=== PATIENT | female | born 1960 | race Caucasian/White ===

== ENCOUNTER → 2016-10-26 | Day surgery (SDC) | payer MEDICARE ==
[~2016-10-26] VITALS: Ht 167.6 cm; Wt 142.9 kg
[~2016-10-26] MED LIST: AMLODIPINE10 MG PO; CLINDAMYCIN HC300 MG PO; CLINDAMYCIN300 MG PO; EFFIENT10 M2 PO; FAMOTIDINE40 MG PO; HYDROCHLOROTHIA25 M1 PO; HYDROCODONE-APA1 TA2 PO; INSULIN RE100 UNITS/ SC; KEFLEX500 M1 PO; LASIX20 MG PO; LEVEMIR100 U/M2 SC; LEVEMIR100 U/ML SC; LISINOPRIL40 MG PO; METFORMIN1000 MG PO; NEURONTIN400 M1 PO; OXYBUTYNIN5 MG PO; PERCOCET 325 MG1 TA3 PO; PREDNISONE 20MG20 MG PO; TOPAMAX100 MG PO; TYLENOL ES500 MG PO; ZITHROMAX Z PA250 MG PO
[2016-10-26 06:07] LABS: HEMOGLOBIN 13.5 g/dL (12.2-16.2); LYMPH # 3.2 K/mm3 (0.7-4.5); LYMPH % 48.2 % (10-50.0)
--- NOTE | 2016-10-26 06:34 | Emergency Room Report ---
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 Y Clinical Suspician of Infection? N Mental Status: 1 - Regular (Normal Baseline) Sepsis Risk:Low Sepsis Risk Have you (or family members/close friends) recently traveled outside the [place]? N If Yes, where/when: Have you had exposure to infectious disease within the past month? N TB? Other? Specify: Source patient, RN notes reviewed, old records Exam Limitations no limitations Comment pt with acute onset of chest pain with pressure with no known ht disease Cardiac Chest Pain Chest pain indicative of cardiac No Timing/Duration this evening Severity moderate ALLERGIES Coded Allergies: Sulfa (Sulfonamide Antibiotics) (Intermediate, I-RASH 10/26/16) metoclopramide (From REGLAN) (Intermediate, ANXIETY 10/26/16) Penicillins (Mild, I-RASH 10/26/16) latex (Mild, I-RASH 10/26/16) tramadol (10/26/16) Home Medications Reported Medications Lisinopril (Lisinopril 40MG) 40 MG PO DAILY OXYBUTYNIN CHLORIDE (Oxybutynin 5MG Tab) 10 MG PO DAILY Famotidine 40 MG PO BID #60 History Medical History General CAD? No Angina: No [place]: No Hypertension? Yes Hyperlipidemia? No CHF? No DVT? No PE? No COPD? No Asthma? No Anemia? No GERD? No Gastric ulcers? No GI Bleed? No Hernia? No Thyroid Problems? No Hypothyroidism? No CVA? No Seizures? No Diabetes? Yes Insulin Dependent: No Insulin Pump: No Home FSBS? Yes Renal Insuffiency? No End Stage Renal Disease? No UTI? No Stones? No BPH? No GB Disease: Yes Nephritic Syndrome? No Asplenia? No Hepatitis? Yes Sickle Cell Disease? No Arthritis? No Migraines? No Cataracts? No Glaucoma? No MRSA? Yes HIV? No TB? No Anxiety? Yes Depression? No Cancer? No More? 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 Respiratory denies cough, denies shortness of breath, denies wheezing Cardiovascular see HPI, chest pain, denies palpitations, denies syncope Gastrointestinal denies vomiting Genitourinary denies: dysuria, frequency, hesitancy, hematuria. Musculoskeletal denies back pain, denies joint pain, denies joint swelling, denies neck pain Skin denies rash Psychiatric/Neurological denies headache, denies seizure Physical Exam Vital Signs Vital Signs Date Time Temp Pulse Resp B/P Pulse O2 O2 Flow FiO2 Ox Delivery Rate 10/26 0842 98.2 58 20 205/105 99 10/26 0821 57 20 160/112 99 10/26 0730 61 18 150/92 97 10/26 0702 98.4 69 18 161/92 94 10/26 0632 69 18 177/93 92 10/26 0631 18 10/26 0625 57 18 182/99 92 10/26 0543 98.4 76 18 160/120 96 - WBC >12,000 or <4,000 or 10% bands? 2 or more SIRS Criteria Met? B/P:161/92 MAP:133 Creatinine >2.0? UA output<0.5ml/kg/hr for 2 hrs? Platelet count >100,000? Lactate >2.0mmol/1? INR >1.2 or PTT > than 60 sec? Evidence of Organ Dysfunction? Provider documented clinical suspician of infection? N Sepsis Criteria Count: 1 Sepsis Risk: Low Sepsis Risk General Appearance no apparent distress Eye Exam - bilateral eye PERRL, bilateral eye EOMI Ear, Nose, Throat normal ENT inspection Neck non-tender Respiratory Status No: respiratory distress. Lung Sounds bilateral: lungs clear. 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 No Results/Orders Laboratory Tests 10/26/16 0550: Sodium 140, Potassium 3.7, Chloride 104, Carbon Dioxide 32, BUN 6 L, Creatinine 0.8, Estimated Creat Clear 181, Estimated GFR (MDRD) 75, Glucose 143 H, Calcium 8.9, Total Bilirubin 0.5, AST 18, ALT 20, Alkaline Phosphatase 96, Creatine Kinase 47, CK-MB (CK-2) Rel Index 1.1, CK and CKMB Interp < 0.5, Troponin I < 0.02, Total Protein 6.8, Albumin 3.3 L, Globulin 3.5 H, Albumin/Globulin Ratio 0.9 L, WBC 6.7, RBC 4.52, Hgb 13.5, Hct 40.9, MCV 90.4, RDW 14.4, Plt Count 226 , MPV 9.2, Gran % 43.9, Gran # 2.9, Lymphocytes % 48.2, Monocytes % 5.6, Eosinophils % 1.6, Basophils % 0.7, Lymphocytes # 3.2, Monocytes # 0.4, Eosinophils # 0.1, Basophils # 0.1, PUBS MCHC 33.1, MCH 29.9 Current Medication Orders Sig/Bethanie Start time Last Medication Dose Route Stop Time Status Admin Diphenhydramine HCl 50 MG ONCE ONE 10/26 0900 UNV IV 10/26 0901 Sodium Chloride 10 ML PRN PRN 10/26 0900 UNV IV Sodium Chloride 1,000 ML .Q25H 10/26 0900 UNV IV Amlodipine Besylate 10 MG ONCE ONE 10/26 0845 UNV PO 10/26 0846 Fentanyl Citrate 25 MCG PRN PRN 10/26 0845 UNV IV 10/26 2300 Fentanyl Citrate 50 MCG PRN PRN 10/26 0845 UNV IV 10/26 2300 Flumazenil 0.2 MG PRN PRN 10/26 0845 UNV IV 10/26 2300 Heparin Sodium/ 3,000 UNITS PRN PRN 10/26 0845 UNV Sodium Chloride IV 10/27 0845 Lidocaine HCl 20 ML ONCE ONE 10/26 0845 UNV IJ 10/26 0846 Midazolam HCl 1 MG PRN PRN 10/26 0845 UNV IV 10/26 2300 Midazolam HCl 1 MG PRN PRN 10/26 0845 UNV IV 10/26 2300 Naloxone HCl 0.4 MG [id number] PRN 10/26 0845 UNV IV 10/26 2300 Nitroglycerin 800 MCG PRN PRN 10/26 0845 UNV IV 10/27 0845 Verapamil HCl 5 MG PRN PRN 10/26 0845 UNV IV 10/27 0845 Naloxone HCl 0 .STK-MED ONE 10/26 0646 DC .ROUTE Nitroglycerin 0.4 MG ONCE ONE 10/26 0630 DC 10/26 SL 10/26 0631 0631 Nitroglycerin 0 .STK-MED ONE 10/26 0628 DC SL Aspirin 324 MG ONCE ONE 10/26 0600 DC 10/26 PO 10/26 0601 0602 Aspirin 0 .STK-MED ONE 10/26 06 DC .ROUTE Sodium Chloride 10 ML PRN PRN 10/26 0600 AC IV 10/27 0558 Orders Procedure Date/time Status URINE 10/26 0847 Active TROPONIN I 10/26 0752 Active CHEST-PORTABLE 10/26 0613 Active IV SALINE LOCK 10/26 0559 Active 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 ST/Twave chgs XRAY/CT/US XRAY/CT/US XRAY chest XR interpretation by reviewed by me Xray Results abnormal (cm) Departure Departure Time of Disposition 0851 Disposition Still a Patient Clinical Impression Primary Impression: Angina at rest Secondary Impressions: HTN (hypertension) Qualifiers: Hypertension type: essential hypertension Qualified Code: I10 - Essential (primary) hypertension Condition STABLE Referrals Attila Mendoza MD Additional Instructions will be seen by card and will go to [facility] ED Critical Care Critical Care No at [id number]
--- NOTE | 2016-10-26 06:34 | Emergency Room Report ---
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 Y Clinical Suspician of Infection? N Mental Status: 1 - Regular (Normal Baseline) Sepsis Risk:Low Sepsis Risk Have you (or family members/close friends) recently traveled outside the [place]? N If Yes, where/when: Have you had exposure to infectious disease within the past month? N TB? Other? Specify: Source patient, RN notes reviewed, old records Exam Limitations no limitations Comment pt with acute onset of chest pain with pressure with no known ht disease Cardiac Chest Pain Chest pain indicative of cardiac No Timing/Duration this evening Severity moderate ALLERGIES Coded Allergies: Sulfa (Sulfonamide Antibiotics) (Intermediate, I-RASH 10/26/16) metoclopramide (From REGLAN) (Intermediate, ANXIETY 10/26/16) Penicillins (Mild, I-RASH 10/26/16) latex (Mild, I-RASH 10/26/16) tramadol (10/26/16) Home Medications Reported Medications Lisinopril (Lisinopril 40MG) 40 MG PO DAILY OXYBUTYNIN CHLORIDE (Oxybutynin 5MG Tab) 10 MG PO DAILY Famotidine 40 MG PO BID #60 History Medical History General CAD? No Angina: No [place]: No Hypertension? Yes Hyperlipidemia? No CHF? No DVT? No PE? No COPD? No Asthma? No Anemia? No GERD? No Gastric ulcers? No GI Bleed? No Hernia? No Thyroid Problems? No Hypothyroidism? No CVA? No Seizures? No Diabetes? Yes Insulin Dependent: No Insulin Pump: No Home FSBS? Yes Renal Insuffiency? No End Stage Renal Disease? No UTI? No Stones? No BPH? No GB Disease: Yes Nephritic Syndrome? No Asplenia? No Hepatitis? Yes Sickle Cell Disease? No Arthritis? No Migraines? No Cataracts? No Glaucoma? No MRSA? Yes HIV? No TB? No Anxiety? Yes Depression? No Cancer? No More? 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 Respiratory denies cough, denies shortness of breath, denies wheezing Cardiovascular see HPI, chest pain, denies palpitations, denies syncope Gastrointestinal denies vomiting Genitourinary denies: dysuria, frequency, hesitancy, hematuria. Musculoskeletal denies back pain, denies joint pain, denies joint swelling, denies neck pain Skin denies rash Psychiatric/Neurological denies headache, denies seizure Physical Exam Vital Signs Vital Signs Date Time Temp Pulse Resp B/P Pulse O2 O2 Flow FiO2 Ox Delivery Rate 10/26 0842 98.2 58 20 205/105 99 10/26 0821 57 20 160/112 99 10/26 0730 61 18 150/92 97 10/26 0702 98.4 69 18 161/92 94 10/26 0632 69 18 177/93 92 10/26 0631 18 10/26 0625 57 18 182/99 92 10/26 0543 98.4 76 18 160/120 96 - WBC >12,000 or <4,000 or 10% bands? 2 or more SIRS Criteria Met? B/P:161/92 MAP:133 Creatinine >2.0? UA output<0.5ml/kg/hr for 2 hrs? Platelet count >100,000? Lactate >2.0mmol/1? INR >1.2 or PTT > than 60 sec? Evidence of Organ Dysfunction? Provider documented clinical suspician of infection? N Sepsis Criteria Count: 1 Sepsis Risk: Low Sepsis Risk General Appearance no apparent distress Eye Exam - bilateral eye PERRL, bilateral eye EOMI Ear, Nose, Throat normal ENT inspection Neck non-tender Respiratory Status No: respiratory distress. Lung Sounds bilateral: lungs clear. 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 No Results/Orders Laboratory Tests 10/26/16 0550: Sodium 140, Potassium 3.7, Chloride 104, Carbon Dioxide 32, BUN 6 L, Creatinine 0.8, Estimated Creat Clear 181, Estimated GFR (MDRD) 75, Glucose 143 H, Calcium 8.9, Total Bilirubin 0.5, AST 18, ALT 20, Alkaline Phosphatase 96, Creatine Kinase 47, CK-MB (CK-2) Rel Index 1.1, CK and CKMB Interp < 0.5, Troponin I < 0.02, Total Protein 6.8, Albumin 3.3 L, Globulin 3.5 H, Albumin/Globulin Ratio 0.9 L, WBC 6.7, RBC 4.52, Hgb 13.5, Hct 40.9, MCV 90.4, RDW 14.4, Plt Count 226 , MPV 9.2, Gran % 43.9, Gran # 2.9, Lymphocytes % 48.2, Monocytes % 5.6, Eosinophils % 1.6, Basophils % 0.7, Lymphocytes # 3.2, Monocytes # 0.4, Eosinophils # 0.1, Basophils # 0.1, PUBS MCHC 33.1, MCH 29.9 Current Medication Orders Sig/Bethanie Start time Last Medication Dose Route Stop Time Status Admin Diphenhydramine HCl 50 MG ONCE ONE 10/26 0900 UNV IV 10/26 0901 Sodium Chloride 10 ML PRN PRN 10/26 0900 UNV IV Sodium Chloride 1,000 ML .Q25H 10/26 0900 UNV IV Amlodipine Besylate 10 MG ONCE ONE 10/26 0845 UNV PO 10/26 0846 Fentanyl Citrate 25 MCG PRN PRN 10/26 0845 UNV IV 10/26 2300 Fentanyl Citrate 50 MCG PRN PRN 10/26 0845 UNV IV 10/26 2300 Flumazenil 0.2 MG PRN PRN 10/26 0845 UNV IV 10/26 2300 Heparin Sodium/ 3,000 UNITS PRN PRN 10/26 0845 UNV Sodium Chloride IV 10/27 0845 Lidocaine HCl 20 ML ONCE ONE 10/26 0845 UNV IJ 10/26 0846 Midazolam HCl 1 MG PRN PRN 10/26 0845 UNV IV 10/26 2300 Midazolam HCl 1 MG PRN PRN 10/26 0845 UNV IV 10/26 2300 Naloxone HCl 0.4 MG [id number] PRN 10/26 0845 UNV IV 10/26 2300 Nitroglycerin 800 MCG PRN PRN 10/26 0845 UNV IV 10/27 0845 Verapamil HCl 5 MG PRN PRN 10/26 0845 UNV IV 10/27 0845 Naloxone HCl 0 .STK-MED ONE 10/26 0646 DC .ROUTE Nitroglycerin 0.4 MG ONCE ONE 10/26 0630 DC 10/26 SL 10/26 0631 0631 Nitroglycerin 0 .STK-MED ONE 10/26 0628 DC SL Aspirin 324 MG ONCE ONE 10/26 0600 DC 10/26 PO 10/26 0601 0602 Aspirin 0 .STK-MED ONE 10/26 06 DC .ROUTE Sodium Chloride 10 ML PRN PRN 10/26 0600 AC IV 10/27 0558 Orders Procedure Date/time Status URINE 10/26 0847 Active TROPONIN I 10/26 0752 Active CHEST-PORTABLE 10/26 0613 Active IV SALINE LOCK 10/26 0559 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
[2016-10-26 06:37] LABS: BUN 6 mg/dL (7-18)
[2016-10-26 06:38] LABS: GFR (ESTIMATED) 75 ML/MIN (59-)
--- NOTE | 2016-10-26 08:56 | CONSULT NOTE ---
Standard Demographics Patient Demo Date of Consultation: 10/26/16 Referring Provider: Maycol Godwin MD Reason for Consultation: Angina PRIMARY DIAGNOSIS: chest pain Problem list Problem list: 1. Diabetes mellitus, previously insulin requiring, with initial treatment for diabetes starting at age 28. 2. Hypertension 3. Hyperlipidemia, intolerant to statin therapy. Only uses Fish oil. 4. Morbid obesity A. Status post gastric sleeve approximately 2014 with weight decreased from 450 to current weight of 315 per patient. 5. Strong family history of coronary artery disease in both mother and father in their early 50s. History of present illness: History of present illness: 56-year-old white female presented to the emergency department today for onset of chest discomfort, headache that began earlier this morning(about 4 AM). Patient relates a 2-3 week history of exertional shortness of breath and chest pain that resolves with rest. In the emergency department patient was given sublingual nitroglycerin with resolution of symptoms shortly thereafter. Initial cardiac enzymes normal. Electrocardiogram is sinus rhythm with possible previous septal infarct. Cardiology consulted for further evaluation. Past Medical History: General: Hypertension Yes CVA No Seizures No TB No COPD No Asthma No Diabetes Yes Insulin Dependent No Insulin Pump No Angina No NC No Hyperlipidemia No Urinary No Cancer No Ulcers No MRSA Yes GB Disease Yes Past Surgical HX: Previous Surgery?Y Back Orthopedic Appendix Gallbladd GASTRIC SLEEVE Allergies Coded Allergies: Sulfa (Sulfonamide Antibiotics) (Intermediate, I-RASH 10/26/16) metoclopramide (From REGLAN) (Intermediate, ANXIETY 10/26/16) Penicillins (Mild, I-RASH 10/26/16) latex (Mild, I-RASH 10/26/16) tramadol (10/26/16) Home medications: Reported Medications Lisinopril (Lisinopril 40MG) 40 MG PO DAILY OXYBUTYNIN CHLORIDE (Oxybutynin 5MG Tab) 10 MG PO DAILY Famotidine 40 MG PO BID #60 Current Medications: Current Medications Diphenhydramine HCl 50 MG ONCE ONE IV (UNV) Sodium Chloride 10 ML PRN PRN IV (UNV) Sodium Chloride 1,000 ML .Q25H IV (UNV) Amlodipine Besylate 10 MG ONCE ONE PO (UNV) Fentanyl Citrate 25 MCG PRN PRN IV (UNV) Fentanyl Citrate 50 MCG PRN PRN IV (UNV) Flumazenil 0.2 MG PRN PRN IV (UNV) Heparin Sodium/Sodium Chloride 3,000 UNITS PRN PRN IV (UNV) Lidocaine HCl 20 ML ONCE ONE IJ (UNV) Midazolam HCl 1 MG PRN PRN IV (UNV) Midazolam HCl 1 MG PRN PRN IV (UNV) Naloxone HCl 0.4 MG [id number] PRN IV (UNV) Nitroglycerin 800 MCG PRN PRN IV (UNV) Verapamil HCl 5 MG PRN PRN IV (UNV) Naloxone HCl 0 .STK-MED ONE .ROUTE (DC) Nitroglycerin 0.4 MG ONCE ONE SL (DC) Nitroglycerin 0 .STK-MED ONE SL (DC) Aspirin 324 MG ONCE ONE PO (DC) Aspirin 0 .STK-MED ONE .ROUTE (DC) Sodium Chloride 10 ML PRN PRN IV Immunization HX DT/Tetanus 1-4 Years Family history Family HX Family Hx Insignificant No Social Hx: Smoking HX Tobacco No Alcohol Alcohol: No Hx of Drug Use Drug Use? No Review of systems: Constitutional No: no symptoms reported. Respiratory see HPI, SOB with excertion. Cardiovascular see HPI, chest pain, palpitations Gastrointestinal/Abdominal abdominal pain Genitourinary No: no symptoms reported. Musculoskeletal No: no symptoms reported. Neurological Yes: headache. Exam: Admission Vital Signs: 1ST Vital Signs Result Date Time Pulse Ox 96 10/26 542 B/P 160/120 10/26 542 Temp 98.4 10/26 542 Pulse 76 10/26 05 Resp 18 10/26 542 Last Vital Signs: Vital Signs Result Date Time Pulse Ox 99 10/26 0842 B/P 205/105 10/26 841 Temp 98.2 10/26 08 Pulse 58 10/26 0842 Resp 20 10/26 08 Exam General appearance: alert, awake, no acute distress Neck: no carotid bruit, no JVD Cardiovascular: regular rate & rhythm, no murmur Respiratory: clear to auscultation, good air movement ABD: soft, no tenderness Extremities: moves all, no peripheral edema Neuro: alert, intact, oriented, speech clear Laboratory data: Laboratory Tests 10/26/16 0550: Sodium 140, Potassium 3.7, Chloride 104, Carbon Dioxide 32, BUN 6 L, Creatinine 0.8, Estimated Creat Clear 181, Estimated GFR (MDRD) 75, Glucose 143 H, Calcium 8.9, Total Bilirubin 0.5, AST 18, ALT 20, Alkaline Phosphatase 96, Creatine Kinase 47, CK-MB (CK-2) Rel Index 1.1, CK and CKMB Interp < 0.5, Troponin I < 0.02, Total Protein 6.8, Albumin 3.3 L, Globulin 3.5 H, Albumin/Globulin Ratio 0.9 L, WBC 6.7, RBC 4.52, Hgb 13.5, Hct 40.9, MCV 90.4, RDW 14.4, Plt Count 226 , MPV 9.2, Gran % 43.9, Gran # 2.9, Lymphocytes % 48.2, Monocytes % 5.6, Eosinophils % 1.6, Basophils % 0.7, Lymphocytes # 3.2, Monocytes # 0.4, Eosinophils # 0.1, Basophils # 0.1, PUBS MCHC 33.1, MCH 29.9 Plan: Assessment: 1. Unstable angina pectoris in a patient with diabetes treatment which has been treated since age 28. Patient has significant family history for early coronary artery disease, hypertension, untreated hyperlipidemia and recurrent chest pain. Discussed with Dr. Mendoza. 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 2. Hypertension, poorly controlled. Will add Norvasc 10 mg this a.m. due to bradycardic heart rate in the 50s. Patient is on lisinopril 40 mg daily. 3. Morbid obesity with history of gastric sleeve surgery approximately 2014 4. Hyperlipidemia, intolerant of statin therapy in the past. 5. Strong family history of coronary disease. Recommendations: Discussed with Dr. Mendoza. See above. at 0924
--- NOTE | 2016-10-26 10:07 | RADIOLOGY REPORT PS360 ---
CHEST-PORTABLE HISTORY: CHEST PAIN ORDERING PHYSICIAN: Martell Godwin MD PATIENT AGE: 56 years COMPARISON: None available FINDINGS: The cardiomediastinal silhouette and pulmonary vascularity are within normal limits. The lungs are clear without infiltrates, suspicious nodules, or pleural effusions. No acute bony abnormalities. IMPRESSION: Negative chest, no acute finding
--- NOTE | 2016-10-26 11:29 | RADIOLOGY REPORT PS360 ---
CARDIAC CATHETERIZATION DATE OF CATHETERIZATION:10/26/2016 10:59 AM PROCEDURES: 1. Left heart catheterization 2. Left ventriculogram 3. Selective coronary angiogram 4. FFR to the LAD 5. FFR to the ramus intermedius 6. Drug-eluting stent deployment to the ramus intermedius 7. Drug-eluting stent deployment to the mid LAD INDICATION FOR TEST: 1. Angina pectoris class IV 2. Coronary artery disease 3. Ischemic response to adenosine in both the LAD and ramus intermedius Informed consent was obtained prior to the procedure. COMPLICATIONS: None ESTIMATED BLOOD LOSS: Less than 10 ml. TECHNIQUE: One percent lidocaine was used to anesthetize the right anterior aspect of the right wrist. The right radial artery was accessed via the Seldinger technique and a 5 Sammarinese hydrophilic sheath was placed into the right radial artery. An intra-arterial cocktail of verapamil and nitroglycerin was administered. The Skye catheter was used to perform right coronary artery angiography as well as left heart catheterization and left ventriculogram. I could not get the Skye catheter to cannulate the left main artery due to the catheter being too large and remaining in the left coronary cusp. Because of this over the wire a TIG catheter was used to cannulate the left main artery. Angiography was performed. Angiographically indeterminate stenoses were identified in the ramus intermedius and the LAD. Because of this 15,000 units of heparin was administered intravenously and a 5 Sammarinese sheath was exchanged for a hydrophilic 6 Sammarinese sheath. 60 mg of Effient was administered by mouth prior to the interventional procedure. An Akari left 3.5 by catheter was placed in the ascending aorta and if okay no FFR wire was normalized. The guide catheter was then used intubate the left main artery and the wire was placed into the mid to distal LAD. The ACT was measured at 346 seconds prior to passage of the wire. Adenosine was infused in the FFR index dropped to 0.75. At this point the wire was pulled back and placed into the ramus intermedius and 3 minutes later adenosine was infused after the wire was placed distal to the angiographically indeterminate stenosis. The FFR index dropped to 0.79 also indicating an ischemic response in the large ramus. A 2.5 x 22 mm resolute stent was deployed at 14 deepthi reducing the angiographically indeterminate yet hemodynamically severe stenosis to 0%. Excellent angiographic results were obtained with JOE-3 flow down the vessel before and after the procedure. The wire was in placed into the LAD and a 2.25 x 12 mm resolute stent was deployed at 15 deepthi in the mid LAD reducing the hemodynamically severe stenosis to 0%. JOE III flow was present before and after the procedure down the LAD area Patient was complaining of pain in the arm with manipulation of the catheter therefore the guide catheter was pulled back into the brachiocephalic artery and then into the proximal subclavian artery. 2 aliquots of 800 mcg of intra-arterial nitroglycerin was administered via the end hole catheter. After blood pressure dropped the catheter was easily removed from the right arm and sheath was removed with excellent hemostasis being achieved with TR band. The closing ACT was 287 seconds. Patient was transferred to the postop holding area in stable condition ANGIOGRAPHIC RESULTS: 1. The left main artery normal 2. The left anterior descending artery has a mid vessel 50-70% stenosis which produced an FFR index of 0.75 3. The ramus intermedius is a large vessel and has a proximal to mid vessel 50% stenosis which produces an FFR index of 0.79 4. The circumflex artery normal 5. The right coronary artery is a codominant vessel and normal 6. The JOHNSON ventriculogram reveals hyperdynamic ejection fraction at 80% 7. The left ventricular end-diastolic pressure 20 mmHg IMPRESSION: 1. Severe 2 vessel coronary artery disease as described above 2. Angiographically indeterminate yet hemodynamically severe disease in the mid LAD requiring 1 drug-eluting stent placement reducing hemodynamically severe stenosis to 0% by angiography 3. Angiographically indeterminate yet hemodynamically severe disease in the proximal to mid large ramus intermedius requiring 1 drug-eluting stent placement reducing hemodynamically severe stenosis to 0% by angiography 4. Hyperdynamic ventricle at 80% consistent with hypertensive heart disease 5. Elevated LVEDP consistent with hypertensive heart disease PLAN: 1. Effient and aspirin 2. LDL less than 70 3. Patient requires carvedilol and or verapamil in order to decrease her hyperdynamic ventricle. She would also benefit from low dose diuretics. 4. Weight-loss advised along with risk factor modification
[2016-10-26 15:41] VITALS: BP 151/88
[2016-10-26 16:00] VITALS: BP 129/103
[2016-10-26 18:00] VITALS: BP 179/71
[2016-10-26 19:56] VITALS: BP 124/88
[2016-10-26 20:00] VITALS: BP 141/74
[2016-10-27] VITALS: BP 131/76
[2016-10-27 02:00] VITALS: BP 134/73
[2016-10-27 04:00] VITALS: BP 130/73
[2016-10-27 07:00] VITALS: BP 156/90
[2016-10-27 07:36] VITALS: BP 156/90
[2016-10-27 08:00] VITALS: BP 144/86
== END ==
LOC: ER 05:43 → SDC 08:57
PROVIDERS: Emergency Medicine; Internal Medicine
PROC: B2111ZZ Fluoroscopy of Multiple Coronary Arteries using Low Osmolar Contrast (ICD-10-PCS; 2016-10-26)
PROC: B2151ZZ Fluoroscopy of Left Heart using Low Osmolar Contrast (ICD-10-PCS; 2016-10-26)
PROC: 4A033BC Measurement of Arterial Pressure, Coronary, Percutaneous Approach (ICD-10-PCS; 2016-10-26)
PROC: 027135Z Dilation of Coronary Artery, Two Arteries with Two Drug-eluting Intraluminal Devices, Percutaneous Approach (ICD-10-PCS; 2016-10-26)
PROC: 4A023N7 Measurement of Cardiac Sampling and Pressure, Left Heart, Percutaneous Approach (ICD-10-PCS; principal; 2016-10-26 09:15)
DX: I25.119 Atherosclerotic heart disease of native coronary artery with unspecified angina pectoris (principal); I11.9 Hypertensive heart disease without heart failure
CPT/HCPCS: C1725; C1760; C1769; C1876; C1887; C1894; J0153; J1644; Q9967

== ENCOUNTER 2017-07-15 19:22 | Observation (INO) | payer MEDICARE ==
[~2017-07-15] VITALS: Ht 167.6 cm; Wt 133.9 kg
[2017-07-15 19:22] VITALS: BP 120/83
[2017-07-15] MEDS ORDERED: METOPROLOL SUCC25 M2 PO (19:28)
[2017-07-15] MEDS ORDERED: METFORMIN 500M500 M1 PO (19:29)
[2017-07-15] MEDS ORDERED: ALLOPURINOL100 MG PO (19:29)
[2017-07-15] MEDS ORDERED: SERTRALINE 50MG50 MG PO (19:30)
--- NOTE | 2017-07-15 20:02 | Emergency Room Report ---
History of Present Illness Time Seen by MD Mercado Presenting Problem in Triage Pt arrived:Wheelchair Presenting Problem:C/O LEFT SIDED CHEST PAIN ALL DAY. WORSE WHEN LYING DOWN AND BETTER WHEN SITTING UP. C/ NAUSEA. 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 N Clinical Suspician of Infection? N Mental Status: 1 - Regular (Normal Baseline) Sepsis Risk:Low Sepsis Risk Have you (or family members/close friends) recently traveled outside the [place]? N If Yes, where/when: Have you had exposure to infectious disease within the past month? N TB? Other? Specify: Source patient, RN notes reviewed, old records Exam Limitations no limitations Comment pt with 1 day of lt sided chest pain at first described as costal and has hx of card disease with prev stents - pt has sig risk factors - and on re exam she has intetmittent chest pain similiar to prev chest pain Cardiac Chest Pain Chest pain indicative of cardiac Yes Timing/Duration 4-6 hours, intermittent Severity/Quality moderate, dull Location rib area -costal/lat chest Chest Pain Radiation no radiation Activities at Onset light activity Nitro Today/Relief no nitro taken today Aspirin Treatment Today 325 mg x 1, provided by ED Beta chris treatment today Beta chris taken, provided at home, no relief Cardiac risk factors + cardiovascular disease, Diabetes, + family history, obesity Prior Workup/Intervention stent(s) Timing/Duration this evening Severity moderate ALLERGIES Coded Allergies: Tazupwb-Gxr-Jrj Reductase Inhibitor (Intermediate, 11/16/16) Sulfa (Sulfonamide Antibiotics) (Intermediate, I-RASH 11/16/16) metoclopramide (From REGLAN) (Intermediate, ANXIETY 11/16/16) Penicillins (Mild, I-RASH 11/16/16) latex (Mild, I-RASH 11/16/16) tramadol (11/16/16) Home Medications Reported Medications Famotidine 40 MG PO BID #60 Metoprolol Succinate 25 MG PO DAILY #90 Allopurinol 100 MG PO BID #60 Metformin HCl (Metformin) 500 MG PO BID #180 Sertraline Hcl (Sertraline 50MG) 25 MG PO DAILY #90 Lisinopril (Lisinopril 40MG) 40 MG PO BID OXYBUTYNIN CHLORIDE (Oxybutynin 5MG Tab) 5 MG PO BID Acetaminophen (Tylenol XS 500MG) 500 MG PO Q6HP PRN FEVER Amlodipine Besylate (Amlodipine) 10 MG PO BID Prasugrel HCl (Effient) 10 MG PO DAILY History Medical History General CAD? Yes Angina: No [place]: No Hypertension? Yes Hyperlipidemia? Yes CHF? No DVT? No PE? No COPD? No Asthma? Yes Anemia? No GERD? Yes Gastric ulcers? Yes GI Bleed? Yes Hernia? Yes Thyroid Problems? No Hypothyroidism? No CVA? No Seizures? No Diabetes? Yes Insulin Dependent: No Insulin Pump: No Home FSBS? Yes Renal Insuffiency? No End Stage Renal Disease? No UTI? No Stones? No BPH? No GB Disease: Yes Nephritic Syndrome? No Asplenia? No Hepatitis? Yes Sickle Cell Disease? No Arthritis? Yes Migraines? No Cataracts? No Glaucoma? No MRSA? Yes HIV? No TB? No Anxiety? Yes Depression? Yes Cancer? No More? 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 Respiratory denies cough, denies shortness of breath, denies wheezing Cardiovascular chest pain, denies palpitations, denies syncope Gastrointestinal denies abdominal pain, denies diarrhea, denies vomiting Genitourinary denies: dysuria, frequency, hesitancy, hematuria. Musculoskeletal denies back pain, denies joint pain, denies joint swelling, denies neck pain Skin denies rash Psychiatric/Neurological denies headache, denies seizure Physical Exam Vital Signs Vital Signs Date Time Temp Pulse Resp B/P Pulse O2 O2 Flow FiO2 Ox Delivery Rate 07/15 1955 60 24 127/85 98 07/15 1922 99.1 54 24 120/83 98 - WBC >12,000 or <4,000 or 10% bands? 2 or more SIRS Criteria Met? B/P:127/85 MAP:95 Creatinine >2.0? UA output<0.5ml/kg/hr for 2 hrs? Platelet count >100,000? Lactate >2.0mmol/1? INR >1.2 or PTT > than 60 sec? Evidence of Organ Dysfunction? Provider documented clinical suspician of infection? N Sepsis Criteria Count: 1 Sepsis Risk: Low Sepsis Risk General Appearance no apparent distress Eye Exam - bilateral eye PERRL, bilateral eye EOMI Ear, Nose, Throat normal ENT inspection Neck supple Respiratory Status No: respiratory distress. Lung Sounds bilateral: lungs clear. 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 No Results/Orders Laboratory Tests 07/15/17 1933: Sodium 138, Potassium 4.4, Chloride 102, Carbon Dioxide 29, BUN 22 H, Creatinine 1.2 H, Estimated Creat Clear 114, Estimated GFR (MDRD) 47 L, Glucose 162 H, Calcium 9.7, Total Bilirubin 0.3, AST 16, ALT 25, Alkaline Phosphatase 111, Creatine Kinase 35, CK-MB (CK-2) Rel Index 1.4, CK and CKMB Interp < 0.5, Troponin I < 0.02, Total Protein 7.9, Albumin 3.9, Globulin 4.0 H , Albumin/Globulin Ratio 1.0 L, WBC 10.6, RBC 4.70, Hgb 13.5, Hct 42.4, MCV 90.2, RDW 12.9, Plt Count 292, MPV 7.9, Gran % 51.8, Gran # 5.5, Lymphocytes % 42.1, Monocytes % 4.4, Eosinophils % 1.1, Basophils % 0.5, Lymphocytes # 4.5, Monocytes # 0.5, Eosinophils # 0.1, Basophils # 0.1, PUBS MCHC 32.0, MCH 28.8 Current Medication Orders Sig/Bethanie Start time Last Medication Dose Route Stop Time Status Admin Nitroglycerin 1 IN ONCE ONE 07/15 2115 DC TP 07/15 2116 Sodium Chloride 10 ML PRN PRN 07/15 1945 AC IV 07/16 1933 Orders Procedure Date/time Status Decision to admit 07/15 2119 Active ELECTROCARDIOGRAM REQUEST 07/15 1933 Active CHEST(2 VIEWS-NOT PORTABLE) 07/15 1933 Active IV SALINE LOCK 07/15 1933 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 ST/Twave chgs XRAY/CT/US XRAY/CT/US XRAY chest XR interpretation by reviewed by me Xray Results normal/NAD JOE Score for N-Stemi/Angina JOE N-STEMI SCORE JOE N-STEMI SCORE Response Value Age of patient Less than 65 yrs 0 Number of risk factors for CAD Presence of 3 or more 1 Prior coronary artery stenosis (seen in angiography) 50% or more 1 ST-Segment deviation on ECG (>1 min) Absent 0 Prior aspirin intake ASA intake in last 7 days 1 Severe anginal chest pain 2 or more episodes/24hr 1 Elevated cardiac markers(CK-MB or troponin) Absent 0 Total 4 Departure Departure Time of Disposition 2117 Disposition Still a Patient Clinical Impression Primary Impression: Chest pain Qualifiers: Chest pain type: precordial pain Qualified Code: R07.2 - Precordial pain Secondary Impressions: Renal insufficiency Condition STABLE Referrals YAO BROWN (PCP/Family) discussed with dr morrow ED Critical Care Critical Care No at 2129
--- NOTE | 2017-07-15 20:02 | Emergency Room Report ---
History of Present Illness Time Seen by MD Mercado Presenting Problem in Triage Pt arrived:Wheelchair Presenting Problem:C/O LEFT SIDED CHEST PAIN ALL DAY. WORSE WHEN LYING DOWN AND BETTER WHEN SITTING UP. C/ NAUSEA. 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 N Clinical Suspician of Infection? N Mental Status: 1 - Regular (Normal Baseline) Sepsis Risk:Low Sepsis Risk Have you (or family members/close friends) recently traveled outside the [place]? N If Yes, where/when: Have you had exposure to infectious disease within the past month? N TB? Other? Specify: Source patient, RN notes reviewed, old records Exam Limitations no limitations Comment pt with 1 day of lt sided chest pain at first described as costal and has hx of card disease with prev stents - pt has sig risk factors - and on re exam she has intetmittent chest pain similiar to prev chest pain Cardiac Chest Pain Chest pain indicative of cardiac Yes Timing/Duration 4-6 hours, intermittent Severity/Quality moderate, dull Location rib area -costal/lat chest Chest Pain Radiation no radiation Activities at Onset light activity Nitro Today/Relief no nitro taken today Aspirin Treatment Today 325 mg x 1, provided by ED Beta chris treatment today Beta chris taken, provided at home, no relief Cardiac risk factors + cardiovascular disease, Diabetes, + family history, obesity Prior Workup/Intervention stent(s) Timing/Duration this evening Severity moderate ALLERGIES Coded Allergies: Gvijwef-Iai-Kuj Reductase Inhibitor (Intermediate, 11/16/16) Sulfa (Sulfonamide Antibiotics) (Intermediate, I-RASH 11/16/16) metoclopramide (From REGLAN) (Intermediate, ANXIETY 11/16/16) Penicillins (Mild, I-RASH 11/16/16) latex (Mild, I-RASH 11/16/16) tramadol (11/16/16) Home Medications Reported Medications Famotidine 40 MG PO BID #60 Metoprolol Succinate 25 MG PO DAILY #90 Allopurinol 100 MG PO BID #60 Metformin HCl (Metformin) 500 MG PO BID #180 Sertraline Hcl (Sertraline 50MG) 25 MG PO DAILY #90 Lisinopril (Lisinopril 40MG) 40 MG PO BID OXYBUTYNIN CHLORIDE (Oxybutynin 5MG Tab) 5 MG PO BID Acetaminophen (Tylenol XS 500MG) 500 MG PO Q6HP PRN FEVER Amlodipine Besylate (Amlodipine) 10 MG PO BID Prasugrel HCl (Effient) 10 MG PO DAILY History Medical History General CAD? Yes Angina: No [place]: No Hypertension? Yes Hyperlipidemia? Yes CHF? No DVT? No PE? No COPD? No Asthma? Yes Anemia? No GERD? Yes Gastric ulcers? Yes GI Bleed? Yes Hernia? Yes Thyroid Problems? No Hypothyroidism? No CVA? No Seizures? No Diabetes? Yes Insulin Dependent: No Insulin Pump: No Home FSBS? Yes Renal Insuffiency? No End Stage Renal Disease? No UTI? No Stones? No BPH? No GB Disease: Yes Nephritic Syndrome? No Asplenia? No Hepatitis? Yes Sickle Cell Disease? No Arthritis? Yes Migraines? No Cataracts? No Glaucoma? No MRSA? Yes HIV? No TB? No Anxiety? Yes Depression? Yes Cancer? No More? 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 Respiratory denies cough, denies shortness of breath, denies wheezing Cardiovascular chest pain, denies palpitations, denies syncope Gastrointestinal denies abdominal pain, denies diarrhea, denies vomiting Genitourinary denies: dysuria, frequency, hesitancy, hematuria. Musculoskeletal denies back pain, denies joint pain, denies joint swelling, denies neck pain Skin denies rash Psychiatric/Neurological denies headache, denies seizure Physical Exam Vital Signs Vital Signs Date Time Temp Pulse Resp B/P Pulse O2 O2 Flow FiO2 Ox Delivery Rate 07/15 1955 60 24 127/85 98 07/15 1922 99.1 54 24 120/83 98 - WBC >12,000 or <4,000 or 10% bands? 2 or more SIRS Criteria Met? B/P:127/85 MAP:95 Creatinine >2.0? UA output<0.5ml/kg/hr for 2 hrs? Platelet count >100,000? Lactate >2.0mmol/1? INR >1.2 or PTT > than 60 sec? Evidence of Organ Dysfunction? Provider documented clinical suspician of infection? N Sepsis Criteria Count: 1 Sepsis Risk: Low Sepsis Risk General Appearance no apparent distress Eye Exam - bilateral eye PERRL, bilateral eye EOMI Ear, Nose, Throat normal ENT inspection Neck supple Respiratory Status No: respiratory distress. Lung Sounds bilateral: lungs clear. 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 No Results/Orders Laboratory Tests 07/15/17 1933: Sodium 138, Potassium 4.4, Chloride 102, Carbon Dioxide 29, BUN 22 H, Creatinine 1.2 H, Estimated Creat Clear 114, Estimated GFR (MDRD) 47 L, Glucose 162 H, Calcium 9.7, Total Bilirubin 0.3, AST 16, ALT 25, Alkaline Phosphatase 111, Creatine Kinase 35, CK-MB (CK-2) Rel Index 1.4, CK and CKMB Interp < 0.5, Troponin I < 0.02, Total Protein 7.9, Albumin 3.9, Globulin 4.0 H , Albumin/Globulin Ratio 1.0 L, WBC 10.6, RBC 4.70, Hgb 13.5, Hct 42.4, MCV 90.2, RDW 12.9, Plt Count 292, MPV 7.9, Gran % 51.8, Gran # 5.5, Lymphocytes % 42.1, Monocytes % 4.4, Eosinophils % 1.1, Basophils % 0.5, Lymphocytes # 4.5, Monocytes # 0.5, Eosinophils # 0.1, Basophils # 0.1, PUBS MCHC 32.0, MCH 28.8 Current Medication Orders Sig/Bethanie Start time Last Medication Dose Route Stop Time Status Admin Nitroglycerin 1 IN ONCE ONE 07/15 2115 DC TP 07/15 2116 Sodium Chloride 10 ML PRN PRN 07/15 1945 AC IV 07/16 1933 Orders Procedure Date/time Status Decision to admit 07/15 2119 Active ELECTROCARDIOGRAM REQUEST 07/15 1933 Active CHEST(2 VIEWS-NOT PORTABLE) 07/15 1933 Active IV SALINE LOCK 07/15 1933 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 ST/Twave chgs XRAY/CT/US XRAY/CT/US XRAY chest XR interpretation by reviewed by me Xray Results normal/NAD JOE Score for N-Stemi/Angina JOE N-STEMI SCORE JOE N-STEMI SCORE Response Value Age of patient Less than 65 yrs 0 Number of risk factors for CAD Presence of 3 or more 1 Prior coronary artery stenosis (seen in angiography) 50% or more 1 ST-Segment deviation on ECG (>1 min) Absent 0 Prior aspirin intake ASA intake in last 7 days 1 Severe anginal chest pain 2 or more episodes/24hr 1 Elevated cardiac markers(CK-MB or troponin) Absent 0 Total 4 Departure Departure Time of Disposition 2117 Disposition Still a Patient Clinical Impression Primary Impression: Chest pain Qualifiers: Chest pain type: precordial pain Qualified Code: R07.2 - Precordial pain Secondary Impressions: Renal insufficiency Condition STABLE Referrals YAO BROWN (PCP/Family) discussed with dr morrow ED Critical Care Critical Care No at 2129
[2017-07-15 20:12] LABS: HEMOGLOBIN 13.5 g/dL (12.2-16.2); LYMPH # 4.5 K/mm3 (0.7-4.5); LYMPH % 42.1 % (10-50.0)
[2017-07-15 20:38] LABS: BUN 22 mg/dL (7-18)
[2017-07-15 20:39] LABS: GFR (ESTIMATED) 47 ML/MIN (59-)
[2017-07-15 22:30] VITALS: BP 136/68
[2017-07-15 22:39] VITALS: BP 136/68
[2017-07-16] VITALS (7 sets, daily range): BP systolic 93–120; BP diastolic 48–55
--- OUTSIDE RECORDS SUMMARY | 2017-07-16 05:39 | External Medical Summary Rpt | CCD ---
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 PHYS T VISIT [facility] HIGH/URGE NT SEVERITY EMERGENCY 11333 EMERGENCY RICHARDSO 1 1 CARE N THO DEPARTMEN PHYS T VISIT [facility] HIGH/URGE NT SEVERITY
--- OUTSIDE RECORDS SUMMARY | 2017-07-16 05:39 | External Medical Summary Rpt | CCD ---
Author Author , LYNDA Organization LYNDA Address Unknown Phone [email or web address] Care Team Providers Care Robotic Maintenance Technician Name Role Phone MADYSON NAHID, MADYSON Unavailable Unavailable NAHID [facility] Unavailable [facility]available [facility] BROWN JEAN, BROWN Unavailable Unavailable JEAN [facility], Unavailable Unavailable [facility], Unavailable Unavailable [facility] RAFIQ CAR, RAFIQ CAR Unavailable Unavailable [place] [facility] MAYORGA RIM, MAYORGA RIM Unavailable Unavailable [facility], Unavailable Unavailable [facility] Unavailable Unavailable [facility], [facility], Unavailable Unavailable [facility] STEFFANIE TORonny, VALIENTE Unavailable Unavailable TOD MAYNOR RHO, MAYNOR Unavailable Unavailable RHO LUCINDA HANKINS Unavailable Unavailable [facility] Unavailable Un[facility], [facility] HERFEL JARAD, HERFEL Unavailable Unavailable JARAD [facility] Unavailable Unavailable PRACTITIONER [facility], [facility] Unavailable Unavailable [facility], [facility] LOVE TACO, LOVE [...] [facility] Unavailable Unavailable [facility], [facility] CARMEN MAURY, Unavailable Unavailable CARMEN MAURY [facility] Unavailable Unavailable [facility], [facility] Unavailable [facility]available [facility], [facility] Unavailable Unavailable PHYSICIANS, [facility] Unavailable Unavailable SELINA, [facility] SELINA [facility], [facility] Unavailable Unavailable MEDICAL [facility], [facility] Unavailable Unavailable [facility] Unavailable [place] [facility] OVIDIO LUND, OVIDIO LUND Unavailable Unavailable [...] L SUBSTANCE ALLERGY STATUS G4733 OBSTRUCTIVE 03-01-2016 [facility] ADULT P[facility]IATRIC [id number] MIGRAINE 02-24-2016 [facility] W/AURA NOT NEUROLOGY INTRACT W/O STAT MIGRAINOSUS M797 FIBROMYALGI 02-24-2016 [facility] A NEUROLOGY D34 BENIGN 12-08-2015 [facility] NEOPLASM OF [facility] THYROID HOSP GLAND E119 TYPE 2 12-08-2015 [facility] DIABETES [facility] MELLITUS HOSP WITHOUT COMPLICATIO NS I10 ESSENTIAL 12-08-2015 [facility] PRIMARY [facility] HYPERTENSIO HOSP N M542 CERVICALGIA 10-30-2015 [facility] HOSPI M546 PAIN IN 10-29-2015 [place] [facility] SPINE C ZACKE M6240 CONTRACTURE 10-29-2015 [place] OF MUSCLE [facility] UNSPECIFIED C CENTE SITE H6122 IMPACTED 10-13-2015 [facility] LEFT EAR HOSPI R42 DIZZINESS 10-13-2015 [facility] GIDDINESS HOSPI R0602 SHORTNESS 10-11-2015 [facility] BREATH [facility]TIY HOSPITA R0789 OTHER CHEST 10-11-2015 [facility] PAIN [facility] H[facility]PITA R110 NAUSEA 10-11-2015 [facility] R51 HEADACHE 10-11-2015 [facility] Z8614 PERSONAL HX 10-11-2015 [facility] METHICILLIN HOSPITA RSIST STAPH INFECTION Z9884 BARIATRIC 10-11-2015 [facility] SURGERY COMMUNTIY STATUS HOSPITA M109 GOUT 09-11-2015 [place] UNSPECIFIED FOOT & ANKLE CE M1990 UNSPECIFIED 09-11-2015 [place] FOOT & OSTEOARTHRI ANKLE CE TIS UNSPECIFIED SITE V25027 SPONTANEOUS 09-11-2015 [place] RUPTURE FOOT & FLEXOR ANKLE CE TENDONS UNS LOWER LEG M7660 ACHILLES 09-11-2015 [place] TENDINITIS FOOT & UNSPECIFIED ANKLE CE LEG A630 ANOGENITAL 09-02-2015 [facility] [id number] UNSPECIFIED 08-26-2015 [facility] INJURY COMMUNTIY LEFT ANKLE HOSPITA INITIAL ENCOUNTER Z23 ENCOUNTER 08-18-2015 [facility] IMMUNIZATIO SELINA N N843 POLYP OF 08-14-2015 [facility] P20234 PAIN IN 08-07-2015 [facility] [place] LEFT ANKLE RADIOLOGY W65851 PAIN IN 08-07-2015 [facility] LEFT LEG N EMERGENCY PHYS V79916 PAIN IN 08-07-2015 [facility] [place] LEFT FOOT [facility] Z37681 OTHER LONG 07-28-2015 [facility] CURRENT [facility]OUNDATION DRUG THERAPY E6601 MORBID 07-22-2015 SE[facility] OBESITY DUE PHYSICIANS TO EXCESS CALORIES Z6843 BODY MASS 07-22-2015 INDEX BMI MELONIE 50-59.9 PHYSICIANS ADULT E109 TYPE 1 07-15-2015 . DIABETES MELONIE MELLITUS SELINA WITHOUT COMPLICATIO NS L500 ALLERGIC 07-15-2015 . URTICARIA MELONIE MARKS C21484 ENCOUNTER 07-15-2015 . FOR OTHER MELONIE PREPROCEDUR SELINA AL EXAMINATION 45666 MIGRAINE 06-26-2015 [facility] W/AURA W/O NEUROLOGY INTRACT W/O STATUS MIGRNOSUS 7291 UNSPECIFIED 06-26-2015 [facility] MYALGIA NEUROLOGY AND MYOSITIS 98735 DIAB W/O 06-25-2015 [facility] COMP TYPE CONGREGATIONAL II/UNS NOT HOSP STATED UNCNTRL 6825 CELLULITIS 06-02-2015 [facility] NURSE AND ABSCESS PRACTITIONE OF BUTTOCK R GR 2189 LEIOMYOMA 05-25-2015 [facility]ICAL OF UTERUS, SERV UNSPECIFIED FOUNDATION 59020 MORBID 05-25-2015 [facility] OBESITY COMMUNTIY HOSPITA 4019 UNSPECIFIED 05-25-2015 [facility] ESSENTIAL COMMUNTIY HYPERTENSIO HOSPITA N 99447 ASTHMA, 05-25-2015 [facility] UNSPECIFIED COMMUNTIY , HOSPITA UNSPECIFIED STATUS 35262 ENDOMETRIAL 05-25-2015 [facility] HYPERPLASIA FOUNDATION UNSPECIFIED 6253 DYSMENORRHE 05-25-2015 [facility] 6262 EXCESSIVE 05-25-2015 [facility] FREQUENT SERV FOUNDATION MENSTRUATIO N 6271 POSTMENOPAU 05-25-2015 [facility] CRISTIN COMMUNTIY BLEEDING HOSPITA V8544 BODY MASS 05-25-2015 [facility] INDEX COMMUNTIY 60.0-69.9 HOSPITA ADULT V7283 OTHER 05-19-2015 [facility] SPECIFIED COMMUNTIY PRE-OPERATI HOSPITA VE EXAMINATION 71212 FEVER 05-18-2015 [facility] UNSPECIFIED N EMERGENCY SERV 3393 DRUG 03-20-2015 [facility] INDUCED NEUROLOGY HEADACHE NOT ELSEWHERE CLASSIFIED 0794 HUMAN 03-17-2015 [facility] VIRUS IN CCE & UNS SITE 4660 ACUTE 09-04-2012 [facility] [place] 6828 CELLULITIS 07-15-2012 EMERGENCY AND ABSCESS CARE PHYS OF OTHER [facility]THER[facility] SPECIFIED SITE 6823 CELLULITIS 05-22-2012 EMERGENCY AND ABSCESS CARE PHYS OF UPPER NORTHERN ARM AND FOREARM 6826 CELLULITIS 05-02-2012 ST AND ABSCESS MELONIE OF LEG FT [place] EXCEPT FOOT 04324 UNSPECIFIED 05-02-2012 ST SLEEP MELONIE APNEA FT [...] OF VULVA MELONIE AND VAGINA FT [place] 40092 UNSPECIFIED 04-16-2012 ST VAGINITIS MELONIE AND FT [place] VULVOVAGINI TIS 95569 UNSPECIFIED 03-23-2012 ST MELONIE PYELONEPHRI FT [place] TIS 34706 ABDOMINAL 03-23-2012 ST PAIN RIGHT MELONIE UPPER FT [place] QUADRANT V5867 LONG-TERM 03-23-2012 ST USE OF MELONIE INSULIN FT [place] 6869 UNSPEC 01-24-2012 EMERGENCY LOCAL CARE PHYS INFECTION [facility] SKIN&SUBCUT ANEOUS TISSUE 8409 SPRAIN&STRA 12-28-2011 ST IN UNSPEC MELONIE SITE FT [place] SHOULDER&UP PER ARM 7823 EDEMA 11-08-2011 ST MELONIE MEDICALCENT ER V148 PERSONAL 11-08-2011 ST HISTORY MELONIE ALLERGY OT MEDICALCENT SPEC ER MEDICINAL AGTS V1507 PERSONAL 11-08-2011 ST HISTORY [place] [address] ABDOMINAL 09-16-2011 ST TENDERNESS MELONIE RIGHT UPPER FT [place] QUADRANT 54249 ABDOMINAL 09-16-2011 ST TENDERNESS MELONIE RIGHT LOWER FT [place] QUADRANT 9150 ABRASION/FR 09-16-2011 ST ICTION BURN MELONIE FINGER W/O FT [place] MENTION INF 9222 CONTUSION 09-16-2011 ST OF MELONIE ABDOMINAL FT [place] WALL 23596 CONTUSION 09-16-2011 ST OF HAND MELONIE FT [place] 37356 UNSPECIFIED 04-27-2011 EMERGENCY SITE OF CARE PHYS ANKLE [facility] SPRAIN AND STRAIN 11768 CONTUSION 04-27-2011 EMERGENCY OF ANKLE CARE PHYS [facility]THER[facility] V1588 PERSONAL 04-27-2011 EMERGENCY HISTORY OF CARE PHYS FALL [facility] 96514 ABDOMINAL 04-11-2011 EMERGENCY PAIN, CARE PHYS UNSPECIFIED [...] MEDICAL MEDICAL POSITIVE AIRWAY PRESSURE DEVICE LIPID 62744 [facility] PANEL 6 [facility]OSP COMPREHEN 39140 [facility] SIVE 6 [facility] METABOLIC HOSP HOSP PANEL URNLS DIP 36271 [facility] 6 [facility] STICK/TAB HOSP HOSP LET REAGENT AUTO MICROSCOP Y HEMOGLOBI 47760 [facility] N 6 [facility] CON[facility]ATIONAL GLYCOSYLA HOSP HOSP DONOVAN A1C COLLECTIO 88903 [facility] N VENOUS 6 [facility] CON[facility]ATIONAL BLOOD HOSP HOSP VENIPUNCT URE TUBING A7037 [facility] USED WITH 6 MEDICAL MEDICAL POSITIVE AIRWAY PRESSURE DEVICE RADEX 57172 [facility] SPINE 6 N N CERVICAL COMMUNTIY COMMUNTIY 4 OR 5 HOSPITA HOSPITA VIEWS CHIROPRAC 90739 MANUEL FRANCIS TIC 6 GAR MANIPULAT CHIROPRAC [place] TIC CENTE SPINAL 1-2 REGIONS MANUAL 87771 MANUEL JACKSON THERAPY 6 TQS 1/> CHIROPRAC CH[facility]OP[facility]AC REGIONS TIC CENTE TIC CENTE EACH 15 MINUTES RADEX 88001 MANUEL FRANCIS SPINE 6 GAR LUMBOSACR CHIROPRAC AL 2/3 TIC CENTE VIEWS RADEX 03199 MANUEL JACKSON SPINE 6 CERVICAL CHIROPRAC CHIROPRAC 2 OR [address] [place] [address] [facility] MADYS[facility] HEAD/BRAI 6 RADIOLOGY NAHID N W/O CONTRAST MATERIAL RADIOLOGI 02237 [facility] [place] MAYNOR C 6 RADIOLOGY RHO EXAMINATI ON CHEST SINGLE VIEW FRONTAL THER 28356 [facility] PROPH/DX 6 N N NJX IV COMMUNTIY COMMUNTIY PUSH HOSPITA HOSPITA SINGLE/1S T SBST/DRUG COLLECTIO 90546 [facility] N VENOUS 6 N N BLOOD COMMUNTIY COMMUNTIY VENIPUN[place] [address] [facility] TROPONIN 6 N N QUANTITAT COMMUNTIY COMMUNTIY KRISTIE HOSPITA HOSPITA BLOOD 74041 [facility] COUNT 6 N N COMPLETE COMMUNTIY COMMUNTIY AUTO&AUTO HOSPITA HOSPITA DIFRNTL WBC ECG 40119 [facility] ROUTINE 6 N N ECG COMMUNTIY COMMUNTIY W/LEAST HOSPITA HOSPITA 12 LDS TRCG ONLY W/O I&R COMPREHEN 59388 [facility] SIVE 6 N N METABOLIC COMMUNTIY COMMUNTIY PANEL HOSPITA HOSPITA INJECTION J2405 [facility] 6 N N ONDANSETR COMMUNTIY COMMUNTIY ON HCL HOSPITA HOSPITA PER 1 MG NONCOVERE A9270 [facility] D ITEM OR 6 N N SERVICE [...] MEDICAL W/POSITIV E AIRWAY PRESSURE DEVICE RADEX 69102 [facility] ANKLE 5 N N COMPLETE COMMUNTIY COMMUNTIY MINIMUM 3 HOSPITA HOSPITA [facility] [address] NIRUJOGI DISCHARGE 5 MELONIE [facility] MANAGEMEN PHYSICIAN T 30 S MIN/< ADMINISTR G0008 [facility] OF 5 MELONIE MELONIE INFLUENZA SELINA SELINA VIRUS VACCINE IIV4 VACC 49311 [facility] 5 MELONIE MELONIE FREE 0.5 SELINA SELINA ML FOR IM USE BIOPSY 45701 [facility] VULVA/PER 5 MEDICAL PEGG[facility] INEUM 1 SERV LESION FOUNDATIO SPX N DESTRUCTI 00013 [place] [facility]UC[facility] ON BENIGN 5 MEDICAL PEGGY LESIONS SERV UP TO 14 FOUNDATIO N LEVEL III 63090 [facility], SURG 5 [facility] PATHOLOGY GROSS&SHERRY ROSCOPIC EXAM THERAPEUT 82756 [facility] IC 5 N N PROPHYLAC COMMUNTIY COMMUNTIY TIC/DX HOSPITA HOSPITA INJECTION SUBQ/IM INJ J2930 [facility] METHYLPRD 5 N N NISOLONE COMMUNTIY COMMUNTIY SODIUM HOSPITA HOSPITA SUCCNAT TO [address] BALDERRAMA MAR GSTRC 5 MELONIE RSTRICTIV PX PHYSICIAN LONGITUDI S NAL GASTRECTO MY COMPREHEN [address] SIVE 5 MELONIEPANCHO WILHELM METABOLIC SELINA SELINA PANEL ANTIBODY [address] SCREEN 5 MELONIE WILHELM RBC EACH SELINA SELINA SERUM TECHNIQUE BLOOD [address] TYPING 5 MELONIE MELONIE SEROLOGIC SELINA SELINA ABO BLOOD [address] TYPING 5 MELONIE MELONIE SEROLOGIC SELINA SELINA RH (D) BLOOD [address] COUNT 5 MELONIEEVELINA WILHELM COMPLETE SELINA MARKS AUTO&AUTO DIFRNTL WBC ECG 30720 [facility]. ROUTINE 5 MELONIEPANCHO WILHELM ECG SELINA MARSK W/LEAST 12 LDS TRCG ONLY W/O I&R HYSTEROSC 15302 [facility] OPY 5 MEDICAL PEGGY ENDOMETRI SERV AL FOUNDATIO ABLATION N INJECTION J1100 [facility] 5 N N DEXAMETHO COMMUNTIY COMMUNTIY SONE HOSPITA HOSPITA SODIUM PHOSPHATE 1 MG INJECTION J2001 [facility] 5 N N LIDOCAINE COMMUNTIY COMMUNTIY HCL HOSPITA HOSPITA INTRAVENO US INFUS 10 MG RINGERS J7120 [facility] LACTATE 5 N N INFUSION COMMUNTIY COMMUNTIY UP TO HOSPITA HOSPITA 1000 CC GLUC BLD 04708 [facility] GLUC MNTR 5 N N DEV COMMUNTIY COMMUNTIY CLEARED HOSPITA [place] [address] [facility] SURG 5 N N PATHOLOGY COMMUNTIY COMMUNTIY HOSPITA HOSPITA GROSS&SHERRY ROSCOPIC EXAM INJECTION J1885 [facility] 5 N N KETOROLAC COMMUNTIY COMMUNTIY HOSPITA HOSPITA TROMETHAM INE PER 15 MG INJECTION J2250 [facility] 5 N N MIDAZOLAM COMMUNTIY COMMUNTIY HCL PER HOSPITA HOSPITA 1 MG INJECTION J2704 [facility] PROPOFOL 5 N N 10 MG COMMUNTIY COMMUNTIY HOSPITA HOSPITA INJECTION J3010 [facility] FENTANYL 5 N N CITRATE COMMUNTIY COMMUNTIY 0.1 [place] [address] [facility] INFUSION 5 [facility] THERAPY/P [facility] ROPHYLAXI S /DX 1ST TO 1 HR BLOOD 44041 [facility] COUNT 5 [facility] COMPLETE [facility] AUTO&[place] [address] [facility] CON[facility] LACTATE 5 [facility] COMPREHEN 14782 [facility] CON[facility]ATIONAL SIVE 5 [facility] METABOLIC [facility] [place] [address] [facility] INFUSION 5 [facility] THERAPY [facility] PROPHYLAX IS/DX EA HOUR THERAPEUT 25572 [facility] IC 5 [facility] INJECTION [facility] IV PUSH EACH NEW DRUG THER 00285 [facility] PROPH/DX 5 [facility] NJX EA [facility] SEQL IV PUSH SBST/DRUG FAC CULTURE 99377 [facility] BACTERIAL 5 [facility] BLOOD [facility] AEROBIC W/[place] [address] [facility] TRANSVAGI 5 N N NAL COMMUNTIY COMMUNTIY HOSPITA HOSPITA NEBULIZER E0570 MED-CARE MED-CARE WITH 5 DIABETIC DIABETIC COMPRESSO & MEDICAL & MEDICAL R IADNA 85408 [facility], HUMAN 5 [facility] [place] [address] [facility], SURG 5 [facility] PATHOLOGY GROSS&SHERRY ROSCOPIC EXAM CYTP C/V 87820 [facility], AUTO THIN 5 [facility] LYR PREPJ SCR MNL RESCR PHYS INCISION 92449 EMERGENCY [facility] & 2 CARE JARAD DRAINAGE PHYS ABSCESS [facility] COMPLICAT ED/MULTIP LE INCISION 10244 EMERGENCY HERFEL & 2 CARE J[facility]AD DRAINAGE PHYS ABSCESS [facility] COMPLICAT ED/MULTIP LE SUSCEPTIB 12705 [facility] LTY STDY 2 MELONIE STRATTONBETH ANTIMICRB FT FT IAL [place] MICRO/AGA R DILUTJ SMR PRIM 69078 [facility] SRC 2 MELONIE MELONIE GRAM/GIEM FT FT SA STAIN [place] BCT FUNGI/NOAH L CUL BACT 92215 [facility] XCPT 2 MELONIE MELONIE URINE FT FT BLOOD/STO [place] OL AEROBIC ISOL CUL BACT 79452 [facility] AEROBIC 2 MELONIE MELONIE ADDL FT FT METHS [place] DEFINITIV E EA ISOL IM ADM 96723 [facility] PRQ ID 2 MELONIEEVELINA SALASZABETH SUBQ/IM FT FT NJXS 1 [place] VACCINE TDAP 01318 [facility] VACCINE 7 2 MELONIE MELONIE YRS/> IM FT FT [place] GLUCOSE 42042 [facility] BLOOD 2 MELONIE MELONIE REAGENT FT FT STRIP [place] IADNA 08325 [facility] NEISSERIA 2 MELONIE MELONIE FT FT GONORRHOE [place] AE AMPLIFIED PROBE TQ SMR PRIM 38049 [facility] SRC WET 2 MELONIE MELONIE MOUNT FT FT NFCT AGT [place] IADNA 97154 [facility] CHLAMYDIA 2 MELONIE MELONIE FT FT TRACHOMAT [place] IS AMPLIFIED PROBE TQ GONADOTRO 35189 [facility] PIN 2 MELONIE MELONIE CHORIONIC FT FT [place] QUALITATI VE URNLS DIP 62011 [facility] 2 MELONIE MELONIE STICK/TAB FT FT LET [place] REAGENT AUTO MICROSCOP Y URNLS DIP 90043 [facility] 2 MELONIE MELONIE STICK/TAB FT FT LET [place] [address] [facility] LIPASE 2 MELON[place] [address] [facility] ABDOMEN & 2 MELONIE STRATTONBETH PELVIS FT FT W/O [place] CONTRAST MATERIAL GONADOTRO 88714 [facility] PIN 2 MELONIE STRATTONBETH CHORIONIC FT FT [place] QUALITATI VE CULTURE 37902 [facility] BACTERIAL 2 MELONIE MELONIE FT FT QUANTTATI [place] VE COLONY COUNT URINE CULTURE 54133 [facility] BCT 2 MELONIEEVELINA WILHELM ISOL&PRSM FT FT PTV ID [place] ISOLATE EA URINE CULTURE 64363 [facility] TYPING 2 MELONIE SALASZABETH IMMUNOLOG FT FT IC [place] OTH/THN IMMUNOFLU ORES BLOOD 34392 [facility] COUNT 2 MELONIE MELONIE COMPLETE FT FT AUTO&AUTO [place] DIFRNTL WBC INJECTION J1885 [facility] 2 MELONIECHANTE WILHELM KETOROLAC FT FT [place] TROMETHAM INE PER 15 MG THERAPEUT 43418 [facility] IC 2 MELONIE MELONIE PROPHYLAC FT FT TIC/DX [place] INJECTION SUBQ/IM COLLECTIO 49652 [facility] N VENOUS 2 MELONIE WILHELM BLOOD FT FT VENIPUN[place] [address] [facility] AMYLASE 2 MELONIE MELONIE FT FT [place] INJECTION J0696 [facility] 2 MELONIE WILHELM CEFTRIAXO FT FT NE SODIUM L[place] PER 250 MG HEPATIC 56629 [facility] FUNCTION 2 MELONIE MELONIE PANEL FT FT [place] BASIC 33659 [facility] METABOLIC 2 MELONIE MELONIE PANEL FT FT CALCIUM [place] TOTAL RADEX 03975 [facility] SHOULDER 2 MELONIE MELONIE COMPLETE FT FT MINIMUM 2 [place] VIEWS THERAPEUT 46091 [facility] IC 2 MELONIECHANTE WILHELM PROPHYLAC FT FT TIC/DX [place] INJECTION SUBQ/IM INJECTION J2360 [facility] 2 MELONIE MELONIE ORPHENADR FT FT INE [place]US [place] UP TO [address] N VENOUS 2 MELONIE MELONIE BLOOD VENIPUNCT MEDICALCE MEDICALCE URE NTER NTER BLOOD [address] COUNT [facility] COMPLETE AUTO&AUTO MEDICALCE MEDICAL[place] [address] TROPONIN [facility] M[facility] KRISTIE MEDICALCE MEDICALCE NTER NTER NATRIURET [address] IC [facility] M[facility] PEPTIDE MEDICALCE MEDICALCE NTER NTER ECG [address] ROUTINE 2 [facility] W/LEAST MEDICALCE MEDICALCE 12 LDS NTER NTER TRCG ONLY W/O I&R RADIOLOGI [address] ST C EXAM 2 [facility] CHEST 2 VIEWS MEDICALCE MEDICALCE FRONTAL&L NTER NTER ATERAL BASIC [address] METABOLIC 2 [facility] PANEL CALCIUM MEDICALCE MEDICALCE TOTAL NTER NTER INJECTION J2405 ST ST 1 MELONIE WILHELM ONDANSETR FT FT ON HCL [place] [address] [place] [address] ABDOMEN & 1 MELONIE WINCHESTERTH [...] UP [place] TO [address] IN TIME 1 MELONIE WILHELM FT FT [place] GONADOTRO [address] PIN 1 MELONIE WILHELM CHORIONIC FT FT [place] QUALITATI VE BLOOD [address] COUNT 1 MELONIEEVELINA WILHELM COMPLETE FT FT AUTO&AUTO [place] DIFRNTL WBC COLLECTIO [address] N VENOUS 1 MELONIE WILHELM BLOOD FT FT VENIPUNCT [place] URE RADEX [address] HAND 1 MELONIE WILHELM MINIMUM 3 FT FT VIEWS [place] THER [address] PROPH/DX 1 MELONIE WILHELM NJX IV FT FT PUSH [place] SINGLE/1S T SBST/DRUG THERAPEUT [address] IC 1 MELONIE WILHELM INJECTION FT FT IV PUSH L[place] EACH NEW DRUG BASIC [address] METABOLIC 1 MELONIE WILHELM PANEL FT FT CALCIUM [facility] TOTAL HEPATIC [address] FUNCTION 1 MELONIE STRATTONBETH PANEL FT FT [facility] [place] INJECTION J2405 ST ST 1 MELONIE WILHELM ONDANSETR FT FT ON HCL [facility] PER [address] PROPH/DX 1 MELONIE WILHELM NJX EA FT FT SEQL IV [place] PUSH SBST/DRUG FAC Encounters Encounter Start End Date Code Location Performer Type Date OFFICE 10947 [facility] 6 6 N T VISIT NEUROLOGY 10 MINUTES [facility] - 6 6 N OUTPATIEN COMMUNTIY T HOSPITA OFFICE 25630 [facility] 6 6 Y OF T VISIT [place] 15 HOSPI MINUTES OFFICE 28354 MANUEL FRANCIS OUTPATIEN 6 6 GAR T NEW 30 CHIROPRAC MINUTES TIC CENTE OFFICE 42106 [facility] OUTPATIEN 6 6 NURSE T VISIT PRACTITIO 15 NER GR MINUTES EMERGENCY 73740 [facility] 6 6 N DEPARTMEN COMMUNTIY T VISIT HOSPITA HIGH/URGE NT [facility] - 6 6 N OUTPATIEN COMMUNTIY HOSPITA OFFICE 81763 [facility] FARRELL OUTPATIEN 5 5 FOOT & N PETEY T VISIT ANKLE CE 15 MINUTES OFFICE 69754 [facility] JANE OUTPATIEN 5 5 MEDICAL PEGGY T VISIT SERV 10 FOUNDATIO MINUTES [facility] - 5 5 N OUTPATIEN COMMUNTIY [facility] - 5 5 MELONIE INPATIENT SELINA EMERGENCY 63544 [facility] 5 5 NEMO DEPARTMEN EMERGENCY T VISIT PHYS HIGH/URGE NT [facility] - 5 5 N OUTPATIEN [facility] HOSPITA OFFICE 39053 GILMER BROWN OUTPATIEN 5 5 MEDICAL JEAN T VISIT SERV [address] [facility] - 5 5 MELONIE OUTPATIEN HART T OFFICE 09979 [facility] 5 5 N T VISIT NEUROLOGY 15 [facility] 60763 [facility] OUTPATIEN 5 5 NURSE T VISIT PRACTITIO 15 NER GR [facility] - 5 5 N OUTPATIEN COMM[facility]TIY [facility] - 5 5 N OUTPATIEN COMMUNTIY HOSPITA OFFICE 79829 [facility] JANE OUTPATIEN 5 5 MEDICAL PEGGY T VISIT SERV 15 FOUNDATIO MINUTES N EMERGENCY 03072 [facility] DEPT 5 5 NEMO TOD VISIT EMERGENCY HIGH SERV SEVERITY& THREAT [facility] CONGREGATIONAL - 5 5 HEALTH OUTPATIGOOD [facility] - 5 5 N OUTPATIEN COMMUNTIY T HOSPITA OFFICE 42592 [facility]ANE OUTPATIEN 5 5 MEDICAL PEGGY T VISIT SERV 15 FOUNDATIO MINUTES N OFFICE 53581 [facility] LAUREN MELGAR OUTPATIEN 5 5 N T VISIT NEUROLOGY 15 MINUTES OFFICE 85482 [facility] OUTPATIEN 2 2 POINT T VISIT FAMILY 15 CARE, IN MINUTES EMERGENCY 17423 EMERGENCY HERFEL 2 2 CARE JARAD DEPARTMEN PHYS T VISIT [facility] SEVER[facility] EMERGENCY 59097 EMERGENCY [facility] 2 2 CARE N THO DEPARTMEN PHYS T VISIT [facility] HIGH/URGE NT SEVERITY EMERGENCY 30924 ST 2 2 MELONIE DEPARTMEN FT T VISIT [facility] MODERATE SEVERITY EMERGENCY 94554 EMERGENCY HERFEL 2 2 CARE JARAD DEPARTMEN PHYS T VISIT [facility] SEVER[facility] ST - 2 2 MELONIE OUTPATIEN FT T [facility] 24682 ST 2 2 MELONIE DEPARTMEN FT T VISIT [facility] MODERATE SEVERITY EMERGENCY 07338 EMERGENCY HERFEL 2 2 CARE JARAD DEPARTMEN PHYS T VISIT [facility] HIGH/URGE NT SEVERITY [facility] ST - 2 2 MELONIE OUTPATIEN FT T [facility] ST - 2 2 MELONIE OUTPATIEN FT T [facility] EMERGENCY 82869 ST 2 2 MELONIE DEPARTMEN FT T VISIT [facility] HIGH/URGE NT SEVERITY EMERGENCY 18372 EMERGENCY GAUTRA[facility] DEPT 2 2 CARE LENNOX VISIT PHYS HIGH [facility]THER[facility] SEVERITY& THREAT FUNCJ EMERGENCY 04271 EMERGENCY LOVE TACO 2 2 CARE DEPARTMEN PHYS T VISIT [facility] 2 M[facility] OUTPATIEN FT T LEXUS EMERGENCY [id number] ST 2 2 MELONIE NORWOODMEN FT T VISIT LEXUS MODERATE SEVERITY EMERGENCY [id number] EMERGENCY CARMEN 2 2 CARE MAURY DEPARTMEN PHYS T VISIT [facility] 2 2 MELON[facility] OUTPATIEN T MEDICALCE NTER EMERGENCY [address]5566 ST 2 2 MEL[facility] DEPARTMEN T VISIT [facility] - 1 1 MELONIE OUTPATIEN FT T TREGO EMERGENCY 79050 EMERGENCY VEST KEVON 1 1 CARE DEPARTMEN PHYS T VISIT [facility] 60981 EMERGENCY VEST KEVON 1 1 CARE DEPARTMEN PHYS T VISIT [facility] SE[facility] 21072 EMERGENCY RICHARDSO 1 1 CARE N THO DEPARTMEN PHYS T VISIT [facility]
--- OUTSIDE RECORDS SUMMARY | 2017-07-16 05:41 | External Medical Summary Rpt ---
Author Author LYNDA Alvarado, [employer] Organization [employer] Address Unknown Phone Unavailable
--- OUTSIDE RECORDS SUMMARY | 2017-07-16 05:41 | External Medical Summary Rpt | CCD ---
Author Author , LYNDA Organization LYNDA Address Unknown Phone [email or web address] Care Team Providers Care Net Developer With Wcf Name Role Phone [facility] Unavailable Unavailable [facility] BROWN JEAN, BROWN Unavailable Unavailable JEAN [facility], Unavailable Unavailable [facility], Unavailable Unavailable [facility] RAFIQ CAR, RAFIQ CAR Unavailable Unavailable [place] Un[facility] MAYORGA RIM, MAYORGA RIM Unavailable Unavailable [facility] G[facility]UD [place], Unavailable Unavailable [facility] [facility] Unavailable Unavailable HOSPITA, [facility], Unavailable Unavailable [facility] STEFFANIE PECK Unavailable Unavailable LUCINDA FREDERICK Unavailable Unavailable [facility] Un[facility], [facility] HERFEL JARAD, HERFEL Unavailable Unavailable JARAD [facility] Unavailable Unavailable PRACTITIONER GR, [facility] Unavailable Unavailable [facility], [facility] LOVE TACO, LOVE [...] Unavailable Unavailable [facility], [facility] Unavailable Unavailable [facility], [facility] CARMEN MAURY, Unavailable Unavailable CARMEN MAURY [facility] Unavailable Unavailable [facility] Unavailable Unavailable [facility], [facility] Unavailable Unavailable PHYSICIANS, [facility] Unavailable Unavailable SELINA, [facility], [facility] Unavailable Unavailable MEDICAL [facility], [facility] Unavailable Unavailable [facility] OVIDIO LUND, OVIDIO LUND Unavailable Unavailable Purpose Continuity of Care Document - 04-11-2011 through 2016 Problems Code Diagnosis DOS Provider Status [id number] OBSTRUCTIVE 03-01-2016 [facility] SLEEP MEDICAL APNEA ADULT PEDIATRIC [id number] MIGRAINE 02-24-2016 [facility] NOT NEUROLOGY INTRACT W/O STAT MIGRAINOSUS M797 FIBROMYALGI 02-24-2016 [facility] D34 BENIGN 12-08-2015 [facility] NEOPLASM OF [facility] THYROID HOSP GLAND E119 TYPE 2 12-08-2015 [facility] DIABETES [facility] MELLITUS HOSP WITHOUT COMPLICATIO NS I10 ESSENTIAL 12-08-2015 [facility] PRIMARY [facility] HYPERTENSIO HOSP N M542 CERVICALGIA 10-30-2015 [facility] HOSPI M546 PAIN IN 10-29-2015 [facility] [facility] SPINE C CENTE M6240 CONTRACTURE 10-29-2015 [place] OF MUSCLE [facility]OP[facility] UNSPECIFIED C CENTE SITE H6122 IMPACTED 10-13-2015 [facility] LEFT EAR HOSPI R42 DIZZINESS 10-13-2015 [facility] GIDDINESS HOSPI R0602 SHORTNESS 10-11-2015 [facility] OF BREATH COMMUNTIY HOSPITA R0789 OTHER CHEST 10-11-2015 [facility] PAIN COMMUNTI[facility] HOSPITA R110 NAUSEA 10-11-2015 [facility] R51 HEADACHE 10-11-2015 [facility] Z8614 PERSONAL HX 10-11-2015 [facility] RSIST STAPH INFECTION Z9884 BARIATRIC 10-11-2015 [facility] SURGERY COMMUNTIY STATUS HOSPITA M109 GOUT 09-11-2015 [place] UNSPECIFIED FOOT & ANKLE CE M1990 UNSPECIFIED 09-11-2015 [place] FOOT & OSTEOARTHRI ANKLE CE TIS UNSPECIFIED SITE E87955 SPONTANEOUS 09-11-2015 [place] RUPTURE FOOT & FLEXOR ANKLE CE TENDONS UNS LOWER LEG M7660 ACHILLES 09-11-2015 [place] TENDINITIS FOOT & UNSPECIFIED ANKLE CE LEG A630 ANOGENITAL 09-02-2015 [place] [facility] [employer] [facility] [id number] UNSPECIFIED 08-26-2015 [facility] INJURY COMMUNTIY LEFT ANKLE HOSPITA INITIAL ENCOUNTER Z23 ENCOUNTER 08-18-2015 . FOR MELONIE IMMUNIZATIO SELINA N N843 POLYP OF 08-14-2015 [facility] F52890 PAIN IN 08-07-2015 [facility] LEFT [facility]KLE [facility] A13385 PAIN IN 08-07-2015 [facility] LEFT LEG N EMERGENCY PHYS V75178 PAIN IN 08-07-2015 [facility] [place] LEFT FOOT [facility] U29100 OTHER LONG 07-28-2015 [place] [facility] CURRENT [facility] DRUG THERAPY E6601 MORBID 07-22-2015 SEVERE M[facility]ONIE OBESITY DUE PHYSICIANS TO EXCESS CALORIES Z6843 BODY MASS 07-22-2015 INDEX BMI MELONIE 50-59.9 PHYSICIANS ADULT E109 TYPE 1 07-15-2015 . DIABETES MELONIE MELLITUS SELINA WITHOUT COMPLICATIO NS L500 ALLERGIC 07-15-2015 . URTICARIA MELONIE SELINA U48917 ENCOUNTER 07-15-2015 . FOR OTHER MELONIE PREPROCEDUR SELINA AL EXAMINATION 10609 MIGRAINE 06-26-2015 [facility] W/O NEUROLOGY INTRACT W/O STATUS MIGRNOSUS 7291 UNSPECIFIED 06-26-2015 [facility] MYALGIA NEUROLOGY AND MYOSITIS 71942 DIAB W/O 06-25-2015 [facility] COMP TYPE [facility]TH[facility] II/UNS NOT HOSP STATED UNCNTRL 6825 CELLULITIS 06-02-2015 [facility] NURSE AND ABSCESS PRACTITIONE OF BUTTOCK R GR 2189 LEIOMYOMA 05-25-2015 [place] [facility], SERV UNSPECIFIED FOUNDATION 03651 MORBID 05-25-2015 [facility] OBESITY COMMUNTIY HOSPITA 4019 UNSPECIFIED 05-25-2015 [facility] ESSENTIAL COMMUNTIY HYPERTENSIO HOSPITA N 69635 ASTHMA, 05-25-2015 [facility] UNSPECIFIED COMMUNTIY , HOSPITA UNSPECIFIED STATUS 21077 ENDOMETRIAL 05-25-2015 [facility] HYPERPLASIA [facility] UNSPECIFIED 6253 DYSMENORRHE 05-25-2015 [facility] 6262 EXCESSIVE 05-25-2015 [facility] FREQUENT SERV [facility] MENSTRUATIO N 6271 POSTMENOPAU 05-25-2015 [facility] CRISTIN COMMUNTIY BLEEDING HOSPITA V8544 BODY MASS 05-25-2015 [facility] INDEX COMMUNTIY 60.0-69.9 HOSPITA ADULT V7283 OTHER 05-19-2015 [facility] SPECIFIED COMMUNTIY PRE-OPERATI HOSPITA VE EXAMINATION 65148 FEVER 05-18-2015 [facility] UNSPECIFIED N EMERGENCY SERV 3393 DRUG 03-20-2015 [facility] INDUCED NEUROLOGY HEADACHE NOT ELSEWHERE CLASSIFIED 0794 HUMAN 03-17-2015 [facility] VIRUS IN CCE & UNS SITE 4660 ACUTE 09-04-2012 [facility] [place] 6828 CELLULITIS 07-15-2012 EMERGENCY AND ABSCESS CARE PHYS OF OTHER NORTHERN SPECIFIED SITE 6823 CELLULITIS 05-22-2012 EMERGENCY AND ABSCESS CARE PHYS OF UPPER NORTHERN ARM AND FOREARM 6826 CELLULITIS 05-02-2012 ST AND ABSCESS MELONIE OF LEG FT LEXUS EXCEPT FOOT 04925 UNSPECIFIED 05-02-2012 ST SLEEP MELONIE APNEA FT [...] OF VULVA MELONIE AND VAGINA FT LEXUS 98772 UNSPECIFIED 04-16-2012 ST VAGINITIS MELONIE AND FT LEXUS VULVOVAGINI TIS 97190 UNSPECIFIED 03-23-2012 ST MELONIE PYELONEPHRI FT LEXUS TIS 76596 ABDOMINAL 03-23-2012 ST PAIN RIGHT MELONIE UPPER FT LEXUS QUADRANT V5867 LONG-TERM 03-23-2012 ST USE OF MELONIE INSULIN FT LEXUS 6869 UNSPEC 01-24-2012 EMERGENCY LOCAL CARE PHYS INFECTION NORTHERN SKIN&SUBCUT ANEOUS TISSUE 8409 SPRAIN&STRA 03-28-2012 ST IN UNSPEC MELONIE SITE FT LEXUS SHOULDER&UP PER ARM 7823 EDEMA 11-08-2011 ST MEL[facility]ICAL[facility] ER V148 PERSONAL 11-08-2011 ST HISTORY MELONIE ALLERGY OTH MEDICALCENT SPEC ER MEDICINAL AGTS V1507 PERSONAL 11-08-2011 ST HISTORY [place] [address] ABDOMINAL 09-16-2011 ST TENDERNESS MELONIE RIGHT UPPER FT LEXUS QUADRANT 29032 ABDOMINAL 09-16-2011 ST TENDERNESS MELONIE RIGHT LOWER FT LEXUS QUADRANT 9150 ABRASION/FR 09-16-2011 ST ICTION BURN MELONIE FINGER W/O FT LEXUS MENTION INF 9222 CONTUSION 09-16-2011 ST OF MELONIE ABDOMINAL FT LEXUS WALL 13440 CONTUSION 09-16-2011 ST OF HAND MELONIE FT LEXUS 21178 UNSPECIFIED 04-27-2011 EMERGENCY SITE OF CARE PHYS ANKLE NORTHERN SPRAIN AND STRAIN 56492 CONTUSION 04-27-2011 EMERGENCY OF ANKLE CARE PHYS NORTHERN V1588 PERSONAL 04-27-2011 EMERGENCY HISTORY OF CARE PHYS FALL [facility]THERN 57962 ABDOMINAL 04-11-2011 EMERGENCY PAIN, CARE PHYS UNSPECIFIED NORTHERN SITE Immunization Name Date Rout CVX Reac Dose Comm Prov Is Faci e tion ent ider Refu lity Give sed n IIV4 11-[address] 7-20 [facility] VACC 15 ABET ABET H H PRES CLARENCE CLARENCE RV ENCE ENCE FREE 0.5 ML FOR IM USE TDAP 08-[address] 1-20 [facility] VACC 12 ABET ABET INE H FT H FT 7 YRS/ ANA ANA > IM Procedures Procedure DOS Code Location Performer Comment TUBING A7037 [facility] USED WITH 6 MEDICAL MEDICAL POSITIVE AIRWAY PRESSURE DEVICE COMPREHEN 94157 [facility] SIVE 6 [facility] METABOLIC HOSP HOSP PANEL COLLECTIO 35382 [facility] N VENOUS 6 [facility] BLOOD HOSP HOSP VENIPUNCT URE URNLS DIP 82400 [facility] 6 [facility] STICK/TAB HOSP HOSP LET REAGENT AUTO MICROSCOP Y HEMOGLOBI 06793 [facility] N 6 [facility] GLYCOSYLA HOSP HOSP DONOVAN A1C LIPID 66104 [facility] PANEL 6 [facility] HOSP HOSP TUBING A7037 [facility] T[facility] USED WITH 6 MEDICAL MEDICAL POSITIVE AIRWAY PRESSURE DEVICE RADEX 84226 [facility] SPINE 6 N N CERVICAL COMMUNTIY COMMUNTIY 4 OR 5 HOSPITA HOSPITA VIEWS RADEX 03117 [place] SPINE 6 CERVICAL CHIROPRAC CHIROPRAC 2 OR 3 TIC CENTE TIC CENTE VIEWS MANUAL 90948 [place] THERAPY 6 TQS 1/> CHIROPRAC CHIROPRAC REGIONS TIC CENTE TIC CENTE EACH 15 MINUTES CHIROPRAC 38289 MANUEL FRANCIS TIC 6 GAR MANIPULAT CHIROPRAC KRISTIE TX TIC CENTE SPINAL 1-2 REGIONS RADEX 20099 MANUEL FRANCIS SPINE 6 GAR LUMBOSACR CHIROPRAC AL 2/3 TIC CENTE VIEWS INJECTION J2405 [facility] 6 N N ONDANSETR COMMUNTIY COMMUNTIY ON HCL HOSPITA HOSPITA PER 1 MG NONCOVERE A9270 [facility] D ITEM OR 6 N N SERVICE COMMUNTIY COMMUNTIY HOSPITA HOSPITA COMPREHEN 80422 [facility] SIVE 6 N N METABOLIC COMMUNTIY COMMUNTIY PANEL HOSPITA HOSPITA COLLECTIO 48863 [facility] N VENOUS 6 N N BLOOD COMMUNTIY COMMUNTIY VENIPUNCT HOSPITA HOSPITA URE THER 29381 [facility] PROPH/DX 6 N N NJX IV COMMUNTIY COMMUNTIY PUSH HOSPITA HOSPITA SINGLE/1S T SBST/[place] [address] [facility] HEAD/BRAI 6 N N N W/O COMMUNTIY COMMUNTIY CONTRAST HOSPITA HOSPITA MATERIAL RADIOLOGI 01541 [facility] C 6 N N EXAMINATI COMMUNTIY COMMUNTIY ON CHEST HOSPITA HOSPITA SINGLE VIEW FRONTAL ECG 53253 [facility] ROUTINE 6 N N ECG COMMUNTIY COMMUNTIY W/LEAST HOSPITA HOSPITA 12 LDS TRCG ONLY W/O I&[place] [address] [facility] TROPONIN 6 N N QUANTITAT COMMUNTIY COMMUNTIY KRISTIE HOSPITA HOSPITA BLOOD 69341 [facility] COUNT 6 N N COMPLETE COMMUNTIY COMMUNTIY AUTO&AUTO HOSPITA HOSPITA DIFRNTL WBC HEADGEAR A7035 [facility] USED 5 MEDICAL MEDICAL W/POSITIV E AIRWAY PRESSURE DEVICE FULL FACE A7030 [facility] MASK 5 MEDICAL MEDICAL USED W/POS ARWAY PRESS DEVICE EA FILTER A7038 [facility] T[facility] DISPBL 5 MEDICAL MEDICAL USED W/POS ARWAY PRESSURE DEVICE FILTER A7039 [facility] NON 5 MEDICAL MEDICAL DISPBL USED W/POS ARWAY PRESS DEVICE FACE MASK A7031 [facility] TIBRO 5 MEDICAL MEDICAL INTERFACE REPLCMT FULL FACE MASK EA TUBING A7037 [facility]RO [facility] USED WITH 5 MEDICAL MEDICAL POSITIVE AIRWAY PRESSURE DEVICE RADEX 56701 [facility] ANKLE 5 N N COMPLETE COMMUNTIY COMMUNTIY MINIMUM 3 HOSPITA HOSPITA VIEWS ADMINISTR G0008 [facility] OF 5 MELONIE MELONIE INFLUENZA SELINA SELINA VIRUS VACCINE IIV4 VACC 72017 [facility] 5 MELONIEPANCHO [facility] FREE 0.5 SELINA SELINA ML FOR IM USE HOSPITAL 19034 NIRUJOGI DISCHARGE 5 [facility] MANAGEMEN PHYSICIAN T 30 S MIN/< DESTRUCTI 20124 [facility] ON BENIGN 5 MEDICAL PEGGY LESIONS SERV UP TO 14 FOUNDATIO N BIOPSY 02912 [facility] VULVA/PER 5 MEDICAL PEGGY INEUM 1 SERV LESION FOUNDATIO SPX N LEVEL III 07418 [facility] SURG 5 [facility] PATHOLOGY GROSS&SHERRY ROSCOPIC EXAM THERAPEUT 49678 [facility] IC 5 N N PROPHYLAC COMMUNTIY COMMUNTIY TIC/DX HOSPITA HOSPITA INJECTION SUBQ/IM INJ J2930 [facility] METHYLPRD 5 N N NISOLONE COMMUNTIY COMMUNTIY SODIUM HOSPITA HOSPITA SUCCNAT TO 125 MG LAPS 59323 [facility] MELONIE RSTRICTIV PX PHYSICIAN LONGITUDI S NAL GASTRECTO MY BLOOD [address] [facility] [address] TYPING 5 MELONIE WIL[facility]LM SEROLOGIC SELINA SELINA RH (D) ANTIBODY [address] SCREEN 5 MELONIE WILHELM RBC EACH SELINA SELINA SERUM TECHNIQUE BLOOD [address] [facility] [address] TYPING 5 MELONIEEVELINA WILHELM SEROLOGIC SELINA SELINA ABO COMPREHEN [address] [facility] [address] SIVE 5 MELONIE WILHELM METABOLIC SELINA SELINA PANEL BLOOD [address] COUNT 5 MELONIE WILHELM COMPLETE SELINA MARKS AUTO&AUTO DIFRNTL WBC ECG 74141 [facility] ROUTINE 5 MELONIE WILHELM ECG SELINA SELINA W/LEAST 12 LDS TRCG ONLY W/O I&R INJECTION J1100 [facility] 5 N N DEXAMETHO COMMUNTIY COMMUNTIY SONE HOSPITA HOSPITA SODIUM PHOSPHATE 1 MG INJECTION J2001 [facility] 5 N N LIDOCAINE COMMUNTIY COMMUNTIY HCL HOSPITA HOSPITA INTRAVENO US INFUS 10 MG RINGERS J7120 [facility] LACTATE 5 N N INFUSION COMMUNTIY COMMUNTIY UP TO HOSPITA HOSPITA 1000 CC INJECTION J1885 [facility] 5 N N KETOROLAC COMMUNTIY COMMUNTIY HOSPITA HOSPITA TROMETHAM INE PER 15 MG INJECTION J2704 [facility] PROPOFOL 5 N N 10 MG COMMUNTIY COMMUNTIY HOSPITA HOSPITA INJECTION J3010 [facility] FENTANYL 5 N N CITRATE COMMUNTIY COMMUNTIY 0.1 MG HOSPITA HOSPITA INJECTION J2250 [facility] 5 N N MIDAZOLAM COMMUNTIY COMMUNTIY HCL PER HOSPITA HOSPITA 1 MG HYSTEROSC 82071 [facility] OPY 5 N N ENDOMETRI COMMUNTIY COMMUNTIY AL HOSPITA HOSPITA ABLATION GLUC BLD 30226 [facility] GLUC MNTR 5 N N DEV COMMUNTIY COMMUNTIY CLEARED HOSPITA [place] [address] [facility] SURG 5 N N PATHOLOGY COMMUNTIY COMMUNTIY HOSPITA HOSPITA GROSS&SHERRY ROSCOPIC EXAM CULTURE 18819 [facility] BACTERIAL 5 [facility] BLOOD [facility] AEROBIC W/ID ISOLATES COMPREHEN 03949 [facility] SIVE 5 [facility] METABOLIC [facility] [address] [facility] LACTATE 5 [facility] BLOOD 82146 [facility] COUNT 5 [facility] COMPLETE [facility] AUTO&AUTO DIFRNTL WBC THERAPEUT 53499 [facility] IC 5 [facility] INJECTION [facility] [place] [address] [facility]FUS[facility] [address] [place] [address] THERAPY/P [facility] ROPHYLAXI S /DX 1ST TO 1 [place] [address] [facility]FUS[facility] [address] [place] [address] PROPHYLAX IS/DX EA HOUR THER 40782 [facility] PROPH/DX [address] [place] [address] NJX EA [facility] SEQL [place] SBST/[place] F[place] [address] [facility] TRANSVAGI 5 N N NAL COMMUNTIY COMMUNTIY HOSPITA HOSPITA NEBULIZER E0570 MED-CARE MED-CARE WITH 5 DIABETIC DIABETIC COMPRESSO & MEDICAL & MEDICAL R CYTP C/V 09082 [facility] AUTO [facility] LYR PREPJ SCR MNL RESCR PHYS IADNA 18425 [facility], [facility] HUMAN [facility] [place] [address] [facility], SURG 5 [facility] PATHOLOGY GROSS&SHERRY ROSCOPIC EXAM INCISION 58173 EMERGENCY HERFEL & 2 CARE JARAD DRAINAGE PHYS ABSCESS NORTHERN COMPLICAT ED/MULTIP LE INCISION 86905 [facility] & 2 MELONIE MELONIE DRAINAGE FT FT ABSCESS LEXUS LEXUS COMPLICAT ED/MULTIP LE IM ADM 75557 [facility] PRQ ID 2 MELONIE MELONIE SUBQ/IM FT FT NJXS 1 [place] VACCINE TDAP 88998 [facility] VACCINE 7 2 MELONIEEVELINA STRATTONBETH YRS/> IM FT FT LEXUS LEXUS SUSCEPTIB 36198 [facility] LTY STDY 2 MELONIE MELONIE ANTIMICRB FT FT IAL [place] MICRO/AGA R DILUTJ SMR PRIM 57535 [facility] SRC 2 MELONIE MELONIE GRAM/GIEM FT FT SA STAIN [place] BCT FUNGI/NOAH L CUL BACT 41067 [facility] XCPT 2 MELONIE MELONIE URINE FT FT BLOOD/STO [place] OL AEROBIC ISOL CUL BACT 97201 [facility] AEROBIC 2 MELONIE MELONIE ADDL FT FT METHS [place] DEFINITIV E EA ISOL SMR PRIM 90069 [facility] SRC WET 2 MELONIE MELONIE MOUNT FT FT NFCT AGT [place] IADNA 24282 [facility] CHLAMYDIA 2 MELONIE MELONIE FT FT TRACHOMAT [place] IS AMPLIFIED PROBE TQ GLUCOSE 52995 [facility] BLOOD 2 MELONIE MELONIE REAGENT FT FT STRIP [place] IADNA 57940 [facility] NEISSERIA 2 MELONIE MELONIE FT FT GONORRHOE [place] AE AMPLIFIED PROBE TQ URNLS DIP 13473 [facility] 2 MELONIE MELONIE STICK/TAB FT FT LET [place] REAGENT AUTO MICROSCOP Y GONADOTRO 42208 [facility] PIN 2 MELONIE MELONIE CHORIONIC FT FT [place] QUALITATI VE GONADOTRO [address] PIN 2 MELONIE MELONIE CHORIONIC FT FT [place] QUALITATI VE BLOOD [address] COUNT 2 MELONIE MELONIE COMPLETE FT FT AUTO&AUTO [place] DIFRNTL WBC HEPATIC [address] FUNCTION 2 MELONIE MELONIE PANEL FT FT L[place]US LEXUS INJECTION J0696 ST ST 2 MELONIE MELONIE CEFTRIAXO FT FT NE SODIUM [place] PER [address] IC 2 MELONIE MELONIE PROPHYLAC FT FT TIC/DX LEXUS [place] INJECTION SUBQ/[place] [address] ST LIPASE 2 MELON[place] [address] ABDOMEN & 2 MELONIE MELONIE PELVIS FT FT W/O [place] CONTRAST MATERIAL URNLS DIP [address] 2 MELONIE MELONIE STICK/TAB FT FT LET [place] REAGENT AUTO MICROSCOP Y BASIC 33494 ST METABOLIC 2 MELONIE MELONIE PANEL FT FT CALCIUM [place] TOTAL INJECTION J18[address] ST [address] 2 MELONIE MELONIE KETOROLAC FT FT [place] TROMETHAM INE PER [address] N VENOUS 2 MELONIE MELONIE BLOOD FT FT [place]IPUN[place] [address] AMYLASE 2 MELONIE MELONIE FT FT [place] CULTURE [address] BACTERIAL 2 MELONIE MELONIE FT FT QUANTTATI [place] VE COLONY COUNT URINE CULTURE 27213 ST BCT 2 MELONIE MELONIE ISOL&PRSM FT FT PTV ID [place] ISOLATE EA URINE CULTURE [address] TYPING 2 MELONIECHANTE WINC[facility]TH IMMUNOLOG FT FT IC [place] OTH/THN IMMUNOFLU ORES INJECTION J2360 ST ST 2 MELONIE MELONIE ORPHENADR FT FT INE [place] CITRATE UP TO [address] IC 2 MELONIE MELONIE PROPHYLAC FT FT TIC/DX LEXUS LEXUS INJECTION SUBQ/IM RADEX [address] SHOULDER 2 MELONIE MELONIE COMPLETE FT FT MINIMUM 2 LEXUS LEXUS VIEWS BLOOD [address] COUNT 2 MELONIE MELONIE COMPLETE AUTO&AUTO MEDICALCE MEDICALCE DIFRNTL NTER NTER WBC RADIOLOGI [address] C EXAM 2 MELONIESAINT JOSEPH [place] CHEST 2 VIEWS MEDICALCE MEDICALCE FRONTAL&L NTER NTER ATERAL NATRIURET [address] IC 2 MELONIE MELONIE PEPTIDE [place] [address] TROPONIN 2 MELONIE MELONIE QUANTITAT KRISTIE MEDICALCE MEDICALCE NTER NTER ECG [address] ROUTINE 2 MELONIESAINT JOSEPH [place] ECG W/LEAST MEDICALCE MEDICALCE 12 LDS NTER NTER TRCG ONLY W/O I&R BASIC [address] METABOLIC 2 MELONIE MELONIE PANEL CALCIUM MEDICALCE MEDICALCE TOTAL NTER NTER COLLECTIO [address] N VENOUS 2 MELONIE MELONIE BLOOD VENIPUNCT MEDICALCE MEDICALCE URE NTER NTER INJECTION J2405 ST ST 1 MELONIE WILHELM ONDANSETR FT FT ON HCL [place] PER [address] 300-399 1 MELONIE MELONIE MG/ML FT FT IODINE [place] CONCENTRA TION PER ML INJECTION J1170 [address] ST 1 MELONIE MELONIE HYDROMORP FT FT KM UP [place] [address] [place] [address] ABDOMEN & 1 MELONIE MELONIE PELVIS FT FT W/CONTRAS L[place] T MATERIAL HEPATIC [address] FUNCTION 1 MELONIEEVELINA WILHELM PANEL FT FT [place] PROTHROMB [address] IN TIME 1 MELONIE MELONIE FT FT [place] THERAPEUT [address] IC 1 MELONIE WINCHESTERTH INJECTION FT FT IV PUSH [place] EACH NEW DRUG GONADOTRO [address] PIN 1 MELONIE WILHELM CHORIONIC FT FT [place] QUALITATI VE BLOOD 68285 ST COUNT 1 MELONIEEVELINA WILHELM COMPLETE FT FT AUTO&AUTO [place] DIFRNTL WBC THER [address] PROPH/DX 1 MELONIECHANTE WILHELM NJX IV FT FT PUSH [place] SINGLE/1S T SBST/DRUG INJECTION J1170 ST ST 1 MELONIECHATNE WILHELM HYDROMORP FT FT KM UP [place] TO 4 MG BASIC 01374 [facility] METABOLIC 1 MELONIE WILHELM PANEL FT FT CALCIUM L[place] TOTAL THER 96413 ST PROPH/DX 1 MELONIE WILHELM NJX EA FT FT SEQL IV L[place] PUSH SBST/DRUG FAC COLLECTIO 21720 ST N VENOUS 1 MELONIE WILHELM BLOOD FT FT VENIPUNCT [place] URE INJECTION J2405 ST ST 1 MELOINECHANTE WILHELM ONDANSETR FT FT ON HCL [place] PER [address] HAND 1 MELONIE WILHELM MINIMUM 3 FT FT VIEWS [place] Encounters Encounter Start End Date Code Location Performer Type Date OFFICE [address] [facility] [facility] 6 6 N T VISIT NEUROLOGY 10 MINUTES [facility] OFF[facility] 50539 [facility] OUT[facility] 6 6 Y OF T VISIT MAINE [address] [facility] - 6 6 N OUTPATIEN COMMUNTIY T HOSPITA OFFICE 27273 [facility] OUTPATIEN 6 6 GAR T NEW 30 CHIROPRAC MINUTES TIC CENTE OFFICE 74786 [facility] OUTPATI[facility] 6 6 Y OF T VISIT MAINE 15 HOSPI MINUTES EMERGENCY 05430 [facility] 6 6 N DEPARTMEN COMMUNTIY T VISIT HOSPITA HIGH/URGE NT SEVERITY [facility] - 6 6 N OUTPATIEN COMMUNTIY T HOSPITA OFFICE 34702 [facility] OUTPAT[facility] 5 5 FOOT & N PETEY T VISIT ANKLE CE 15 MINUTES OFFICE 14171 [facility] 5 5 MEDICAL PEGGY T VISIT SERV 10 FOUNDATIO MINUTES [facility] - 5 5 N OUTPATIEN COMMUNTIY T [facility] - 5 5 MELONIE INPATIENT [facility] EMERGENCY 66812 [facility] 5 5 NEMO DEPARTMEN EMERGENCY T VISIT PHYS HIGH/URGE NT SEVERITY [facility] - 5 5 N OUTPATIEN COMMUNTIY T HOSPITA OFFICE 58734 [facility] OUT[facility] 5 5 MEDICAL JEAN T VISIT SERV 15 FOUNDATIO MINUTES [facility] ST - 5 5 MELONIE OUTPATIEN [place] T OFFICE 40610 [facility] OUTPATIEN 5 5 N T VISIT NEUROLOGY 15 MINUTES [facility] 5 5 ORTHODOX OUTPATIEN HOSP T OFFICE 29743 S [facility] OUTPATIEN 5 5 NURSE T VISIT PRACTITIO [address] [facility] - 5 5 N OUTPATIEN COMMUNTIY T [facility] - 5 5 N OUTPATIEN COMMUNTIY T HOSPITA OFFICE 89102 [facility] 5 5 MEDICAL PEGGY T VISIT SERV 15 FOUNDATIO MINUTES N EMERGENCY 24319 [facility] 5 5 NEMO TOD VISIT EMERGENCY HIGH SERV SEVERITY& [facility] - 5 5 [facility]ALTH OUTPATIEN [facility] - 5 5 N OUTPATIEN COMMUNTIY T HOSPITA OFFICE 64478 [facility] 5 5 MEDICAL PEGGY T VISIT SERV 15 FOUNDATIO MINUTES N OFFICE 43943 [facility] OUTPATIEN 5 5 N T VISIT NEUROLOGY [address]ES [address] [facility] OUTPATIEN 2 2 POINT T VISIT FAMILY 15 CARE, IN MINUTES EMERGENCY [id number] EMERGENCY HERFEL 2 2 CARE JARAD DEPARTMEN PHYS T VISIT [facility] MODERATE SEVERITY EMERGENCY [id number] EMERGENCY RICHARDSO 2 2 CARE N CHANTE[place] DEPARTMEN PHYS T VISIT [facility] NT SEVERITY [facility] ST - 2 2 MELONIE OUTPATIEN FT T [place] [facility] [address] ST 2 2 MELONIE DEPARTMEN FT T VISIT [place] MODERATE SEVERITY EMERGENCY 19093 EMERGENCY HERFEL 2 2 CARE JARAD DEPARTMEN PHYS T VISIT [facility] H[facility]/URGE NT SEVERITY EMERGENCY 11921 ST 2 2 MELONIE DEPARTMEN FT T VISIT LEXUS MODERATE SEVERITY EMERGENCY 50100 EMERGENCY HERFEL 2 2 CARE JARAD DEPARTMEN PHYS T VISIT [facility] SEVERITY [facility] ST - 2 2 MELONIE OUTPATIEN FT T [facility] - 2 2 MELONIE OUTPATIEN FT T [place] EMERGENCY 65852 EMERGENCY GAUTRAUD DEPT 2 2 CARE LENNOX VISIT PHYS HIGH [facility] SEVERITY& THREAT FUN EMERGENCY 28957 ST 2 2 MELONIE DEPARTMEN FT T VISIT [place] HIGH/URGE NT SEVERITY EMERGENCY 94081 EMERGENCY LOVE TACO 2 2 CARE DEPARTMEN PHYS T VISIT [facility] SEVERITY [facility] ST - 2 2 MELONIE OUTPATIEN FT T [place] [facility] [address]97 ST 2 2 MELONIE DEPARTMEN FT T VISIT LEXUS MODERATE SEVERITY EMERGENCY 73623 EMERGENCY CARMEN 2 2 CARE MAURY DEPARTMEN PHYS T VISIT [facility] H[facility]/URGE NT SEVERITY EMERGENCY 79486 ST 2 2 MELONIE DEPARTMEN T VISIT [facility] H[facility]TER NT [facility] - 2 2 MELONIE OUTPATIEN T [facility] ST - 1 1 MELONIE LIPATIEN FT T [place] [facility] 67358 ST 1 1 MELONIE DEPARTMEN FT T VISIT [place] HIGH/URGE NT SEVERITY EMERGENCY 28322 EMERGENCY VEST KEVON 1 1 CARE DEPARTMEN PHYS T VIS[address] [facility] HIGH/URGE NT SEVERITY EMERGENCY 73498 EMERGENCY RICHARDSO 1 1 CARE N THO DEPARTMEN PHYS T VISIT [facility]/URGE NT SEVERITY
--- OUTSIDE RECORDS SUMMARY | 2017-07-16 05:41 | External Medical Summary Rpt | CCD ---
Author Author , LYNDA Organization [facility] Address Unknown Phone [email or web address] Immunization Name Date Rout CVX Reac Dose Comm Prov Is Faci e tion ent ider Refu lity Give sed n Infl 09-2 150 0.5 Hist [facility] uenz 9-20 mL oric 1 1 a 17 al Quad Info Inj rmat ion - Sour ce Unsp ecif ied Infl 09-1 Intr 140 999 Hist [facility] No [facility] uenz 7-20 amus oric 1 1 a, 16 cula al P-Fr r Info ee rmat ion - Sour ce Unsp ecif ied Tdap 08-2 Intr 115 999 Hist [facility] No [facility] , 8-20 amus oric TTHO TTHO Adso 16 cula al MAS MAS rbed r Info rmat ion - Sour ce Unsp ecif ied Infl 11-1 Intr 150 999 Hist [facility] No [facility] uenz 5-20 amus oric LO LO a 15 cula al Quad r Info Inj rmat ion - Sour ce Unsp ecif ied
--- OUTSIDE RECORDS SUMMARY | 2017-07-16 05:41 | External Medical Summary Rpt | CCD ---
Author Author , LYNDA Organization [facility] Address Unknown Phone [email or web address] Immunization Name Date Rout CVX Reac Dose [...]
--- OUTSIDE RECORDS SUMMARY | 2017-07-16 05:41 | External Medical Summary Rpt | CCD ---
Author Author , LYNDA Organization LYNDA Address Unknown Phone [email or web address] Care Team Providers Care Test Automation Architect Name Role Phone [facility] Unavailable Unavailable [facility] BROWN JEAN, BROWN Unavailable Unavailable JEAN [facility], Unavailable Unavailable [facility], Unavailable Unavailable [facility] RAFIQ CAR, RAFIQ CAR Unavailable Unavailable [place] [facility] MAYORGA RIM, MAYORGA RIM Unavailable Unavailable [facility] GAUTRAUD L[facility], Unavailable Unavailable GARUSTAUD LENNOX [facility] Unavailable Unavailable HOSPITA, [facility], Unavailable Unavailable [facility] STEFFANIE PECK Unavailable Unavailable LUCINDA FREDERICK Unavailable [facility]available [facility]available Un[facility], [facility] HERFEL JARAD, HERFEL Unavailable Unavailable JARAD [facility] Unavailable Unavailable PRACTITIONER GR, [facility] DOWAG[facility]AC FO[facility] & Unavailable Unavailable [facility] LOVE TACO, LOVE [...] Unavailable Unavailable [facility], [facility] Unavailable Unavailable [facility], [facility] CARMEN MAURY, Unavailable Unavailable CARMEN MAURY [facility] Unavailable Unavailable [facility] Unavailable Unavailable [facility]ENTER, [facility] Unavailable Unavailable PHYSICIANS, [facility] Unavailable Unavailable SELINA, [facility], [facility] Unavailable Unavailable MEDICAL [facility], [facility] Unavailable Unavailable MEDICAL [facility] Unavailable [facility] OVIDIO LUND, OVIDIO LUND Unavailable Unavailable Purpose Continuity of Care Document - 04-11-2011 through 2016 Problems Code Diagnosis DOS Provider Status G4733 OBSTRUCTIVE 03-01-2016 [facility] ADULT PEDIATRIC G38359 MIGRAINE 02-24-2016 [facility] NOT NEUROLOGY INTRACT W/O STAT MIGRAINOSUS M797 FIBROMYALGI 02-24-2016 [facility] D34 BENIGN 12-08-2015 [facility] NEOPLASM OF [facility]-DAY THYROID HOSP GLAND E119 TYPE 2 12-08-2015 [facility] DIABETES [facility]DAY MELLITUS HOSP WITHOUT COMPLICATIO NS I10 ESSENTIAL 12-08-2015 [facility] PRIMARY [facility] HYPERTENSIO HOSP N M542 CERVICALGIA 10-30-2015 [facility] HOSPI M546 PAIN IN 10-29-2015 [place] [facility]AC[facility] SPINE C CENTE M6240 CONTRACTURE 10-29-2015 [place] OF MUSCLE [facility]IROP[facility] UNSPECIFIED C CENTE SITE H6122 IMPACTED 10-13-2015 [facility] LEFT EAR HOSPI R42 DIZZINESS 10-13-2015 [facility] GIDDINESS HOSPI R0602 SHORTNESS 10-11-2015 [facility] OF BREATH COMMUNTIY HOSPITA R0789 OTHER CHEST 10-11-2015 [facility] PAIN [facility]TI[facility] HOSPITA R110 NAUSEA 10-11-2015 [facility] R51 HEADACHE 10-11-2015 [facility] Z8614 PERSONAL HX 10-11-2015 [facility] RSIST STAPH INFECTION Z9884 BARIATRIC 10-11-2015 [facility] SURGERY COMMUNTIY STATUS HOSPITA M109 GOUT 09-11-2015 [place] UNSPECIFIED FOOT & ANKLE CE M1990 UNSPECIFIED 09-11-2015 [place] FOOT & OSTEOARTHRI ANKLE CE TIS UNSPECIFIED SITE I77406 SPONTANEOUS 09-11-2015 [place] RUPTURE FOOT & FLEXOR ANKLE CE TENDONS UNS LOWER LEG M7660 ACHILLES 09-11-2015 [place] TENDINITIS FOOT & UNSPECIFIED ANKLE CE LEG A630 ANOGENITAL 09-02-2015 [facility] [id number] UNSPECIFIED 08-26-2015 [facility] INJURY COMMUNTIY LEFT ANKLE HOSPITA INITIAL ENCOUNTER Z23 ENCOUNTER 08-18-2015 . FOR MELONIE IMMUNIZATIO SELINA N N843 POLYP OF 08-14-2015 [facility] S59246 PAIN IN 08-07-2015 [facility]KLE [facility] O25208 PAIN IN 08-07-2015 [facility] LEFT LEG N EMERGENCY PHYS L29550 PAIN IN 08-07-2015 [facility] [place] LEFT FOOT [facility] W66197 OTHER LONG 07-28-2015 [facility] CURRENT [facility] DRUG THERAPY E6601 MORBID 07-22-2015 SEVERE [facility] OBESITY DUE PHYSICIANS TO EXCESS CALORIES Z6843 BODY MASS 07-22-2015 INDEX BMI MELONIE 50-59.9 PHYSICIANS ADULT E109 TYPE 1 07-15-2015 . DIABETES MELONIE MELLITUS SELINA WITHOUT COMPLICATIO NS L500 ALLERGIC 07-15-2015 . URTICARIA MELONIE SELINA B87451 ENCOUNTER 07-15-2015 . FOR OTHER MELONIE PREPROCEDUR SELINA AL EXAMINATION 54617 MIGRAINE 06-26-2015 [facility] W/O NEUROLOGY INTRACT W/O STATUS MIGRNOSUS 7291 UNSPECIFIED 06-26-2015 [facility] MYALGIA NEUROLOGY AND MYOSITIS 74444 DIAB W/O 06-25-2015 [facility] COMP TYPE LATTER-DAY II/UNS NOT HOSP STATED UNCN[facility]L 6825 CELLULITIS 06-02-2015 [facility] NURSE AND ABSCESS PRACTITIONE OF BUTTOCK R GR 2189 LEIOMYOMA 05-25-2015 [facility] UTERUS, SERV UNSPECIFIED FOUNDATION 48486 MORBID 05-25-2015 [facility] OBESITY COMMUNTIY HOSPITA 4019 UNSPECIFIED 05-25-2015 [facility] ESSENTIAL COMMUNTIY HYPERTENSIO HOSPITA N 17497 ASTHMA, 05-25-2015 [facility] UNSPECIFIED COMMUNTIY , HOSPITA UNSPECIFIED STATUS 01076 ENDOMETRIAL 05-25-2015 [facility] HYPERPLASIA [facility] UNSPECIFIED 6253 DYSMENORRHE 05-25-2015 [facility] 6262 EXCESSIVE 05-25-2015 [facility] FREQUENT SERV [facility] MENSTRUATIO N 6271 POSTMENOPAU 05-25-2015 [facility] CRISTIN COMMUNTIY BLEEDING HOSPITA V8544 BODY MASS 05-25-2015 [facility] INDEX COMMUNTIY 60.0-69.9 HOSPITA ADULT V7283 OTHER 05-19-2015 [facility] SPECIFIED COMMUNTIY PRE-OPERATI HOSPITA VE EXAMINATION 69966 FEVER 05-18-2015 [facility] UNSPECIFIED N EMERGENCY SERV 3393 DRUG 03-20-2015 [facility] INDUCED NEUROLOGY HEADACHE NOT ELSEWHERE CLASSIFIED 0794 HUMAN 03-17-2015 [facility] VIRUS IN CCE & UNS SITE 4660 ACUTE 09-04-2012 [facility] [place] 6828 CELLULITIS 07-15-2012 EMERGENCY AND ABSCESS CARE PHYS OF OTHER [facility]THER[facility] SPECIFIED SITE 6823 CELLULITIS 05-22-2012 EMERGENCY AND ABSCESS CARE PHYS OF UPPER NORTHERN ARM AND FOREARM 6826 CELLULITIS 05-02-2012 ST AND ABSCESS MELONIE OF LEG FT LEXUS EXCEPT FOOT 15411 UNSPECIFIED 05-02-2012 ST SLEEP MELONIE APNEA FT [...] OF VULVA MELONIE AND VAGINA FT LEXUS 55404 UNSPECIFIED 04-16-2012 ST VAGINITIS MELONIE AND FT LEXUS VULVOVAGINI TIS 17705 UNSPECIFIED 03-23-2012 ST MELONIE PYELONEPHRI FT LEXUS TIS 58527 ABDOMINAL 03-23-2012 ST PAIN RIGHT MELONIE UPPER [...] OF [place] [address] ABDOMINAL 09-16-2011 ST TENDERNESS MELONIE RIGHT UPPER FT LEXUS QUADRANT 83327 ABDOMINAL 09-16-2011 ST TENDERNESS MELONIE RIGHT LOWER FT LEXUS QUADRANT 9150 ABRASION/FR 09-16-2011 ST ICTION BURN MELONIE FINGER W/O FT LEXUS MENTION INF 9222 CONTUSION 09-16-2011 ST OF MELONIE ABDOMINAL FT LEXUS WALL 06551 CONTUSION 09-16-2011 ST OF HAND MELONIE FT LEXUS 33094 UNSPECIFIED 04-27-2011 EMERGENCY SITE OF CARE PHYS ANKLE [facility] SPRAIN AND STRAIN 02488 CONTUSION 04-27-2011 EMERGENCY OF ANKLE CARE PHYS NORTHERN V1588 PERSONAL 04-27-2011 EMERGENCY HISTORY OF CARE PHYS FALL [facility]THER[facility] 39406 ABDOMINAL 04-11-2011 EMERGENCY PAIN, CARE PHYS UNSPECIFIED [...] MEDICAL MEDICAL POSITIVE AIRWAY PRESSURE DEVICE COMPREHEN 38060 [facility] SIVE 6 LATTER-DAY LATTER-DAY METABOLIC HOSP HOSP PANEL COLLECTIO 64088 [facility] N VENOUS 6 LATTER-DAY LATTER-DAY BLOOD HOSP HOSP VENIPUNCT URE URNLS DIP 66079 [facility] 6 LATTER-DAY LATTER-DAY STICK/TAB HOSP HOSP LET REAGENT AUTO MICROSCOP Y HEMOGLOBI 27851 [facility] N 6 LATTER-DAY LATTER-DAY GLYCOSYLA HOSP HOSP DONOVAN A1C LIPID 74394 [facility] PANEL 6 LATTER-DAY LATTER-DAY HOSP HOSP TUBING A7037 [facility] T[facility]RO USED WITH 6 MEDICAL MEDICAL POSITIVE AIRWAY PRESSURE DEVICE RADEX 24846 [facility] SPINE 6 N N CERVICAL COMMUNTIY COMMUNTIY 4 OR 5 HOSPITA HOSPITA VIEWS RADEX 69884 [facility] [place] SPINE 6 CERVICAL CHIROPRAC CHIROPRAC 2 OR 3 TIC CENTE TIC CENTE VIEWS MANUAL 12424 [place] THERAPY 6 TQS 1/> CHIROPRAC CHIROP[facility]AC REGIONS TIC CENTE TIC CENTE EACH 15 MINUTES CHIROP[facility]AC 41505 MANUEL FRANCIS TIC 6 GAR MANIPULAT CHIROPRAC [place] TIC CENTE SPINAL 1-2 REGIONS RADEX 52926 MANUEL FRANCIS SPINE 6 GAR LUMBOSACR CHIROPRAC AL 2/3 TIC CENTE VIEWS INJECTION J2405 [facility] 6 N N ONDANSETR COMMUNTIY COMMUNTIY ON HCL HOSPITA HOSPITA PER 1 MG NONCOVERE A9270 [facility] D ITEM OR 6 N N SERVICE COMMUNTIY COMMUNTIY HOSPITA HOSPITA COMPREHEN 27298 [facility] SIVE 6 N N METABOLIC COMMUNTIY COMMUNTIY PANEL HOSPITA HOSPITA COLLECTIO 85912 [facility] N VENOUS 6 N N BLOOD COMMUNTIY COMMUNTIY VENIPUNCT HOSPITA HOSPITA URE THER 37929 [facility] PROPH/DX 6 N N NJX IV COMMUNTIY COMMUNTIY PUSH HOSPITA HOSPITA SINGLE/1S T SBST/[place] [address] [facility] HEAD/BRAI 6 N N N W/O COMMUNTIY COMMUNTIY CONTRAST HOSPITA HOSPITA MATERIAL RADIOLOGI 73458 [facility] C 6 N N EXAMINATI COMMUNTIY COMMUNTIY ON CHEST HOSPITA HOSPITA SINGLE VIEW FRONTAL ECG 80886 [facility] ROUTINE 6 N N ECG COMMUNTIY COMMUNTIY W/LEAST HOSPITA HOSPITA 12 LDS TRCG ONLY W/O I&[place] [address] [facility] TROPONIN 6 N N QUANTITAT COMMUNTIY COMMUNTIY KRISTIE HOSPITA HOSPITA BLOOD 40139 [facility] COUNT 6 N N COMPLETE [...] MEDICAL MEDICAL POSITIVE AIRWAY PRESSURE DEVICE RADEX 53490 [facility] ANKLE 5 N N COMPLETE COMMUNTIY COMMUNTIY MINIMUM 3 HOSPITA HOSPITA VIEWS ADMINISTR G0008 [facility] OF 5 MELONIE MELONIE INFLUENZA SELINA SELINA VIRUS VACCINE IIV4 VACC 41926 [facility] 5 MELONIEPANCHO [facility] FREE 0.5 SELINA SELINA ML FOR IM USE HOSPITAL 30678 NIRUJOGI DISCHARGE 5 [facility] MANAGEMEN PHYSICIAN T 30 S MIN/< DESTRUCTI 01479 GIL[facility] JANE ON BENIGN 5 MEDICAL PEGGY LESIONS SERV UP TO 14 FOUNDATIO N BIOPSY 75808 GIL[facility] JANE VULVA/PER 5 MEDICAL PEGGY INEUM 1 SERV LESION FOUNDATIO SPX N LEVEL III 05319 [facility] SURG 5 [facility] PATHOLOGY GROSS&SHERRY ROSCOPIC EXAM THERAPEUT 51022 [facility] IC 5 N N PROPHYLAC COMMUNTIY COMMUNTIY TIC/DX HOSPITA HOSPITA INJECTION SUBQ/IM INJ J2930 [facility] METHYLPRD 5 N N NISOLONE COMMUNTIY COMMUNTIY SODIUM HOSPITA HOSPITA SUCCNAT TO 125 MG LAPS 66541 [facility] 5 MELONIE RSTRICTIV PX PHYSICIAN LONGITUDI S NAL GASTRECTO MY BLOOD [address] [facility] [address] TYPING 5 MELONIE WILHELM SEROLOGIC SELINA SELINA RH (D) ANTIBODY [address] SCREEN 5 MELONIE WILHELM RBC EACH SELINA SELINA SERUM TECHNIQUE BLOOD [address] [facility] [address] TYPING 5 MELONIEEVELINA WILHELM SEROLOGIC SELINA SELINA ABO COMPREHEN [address] [facility] [address] SIVE 5 MELONIE WILHELM METABOLIC SELINA SELINA PANEL BLOOD [address] COUNT 5 MELONIE WILHELM COMPLETE SELINA MARKS AUTO&AUTO DIFRNTL WBC ECG 15470 [facility] ROUTINE 5 MELONIE WILHELM ECG SELINA SELINA W/LEAST 12 LDS TRCG ONLY W/O I&R INJECTION J1100 [facility] 5 N N DEXAMETHO COMMUNTIY COMMUNTIY SONE HOSPITA HOSPITA SODIUM PHOSPHATE 1 MG INJECTION J2001 [facility] 5 N N LIDOCAINE COMMUNTIY COMMUNTIY HCL HOSPITA HOSPITA INTRAVENO US INFUS 10 MG RINGERS J7120 [facility] LACTATE 5 N N INFUSION COMMUNTIY COMMUNTIY UP TO HOSPITA HOSPITA 1000 CC INJECTION J1885 [facility] 5 N N KETOROLAC COMMUNTIY COMMUNTIY HOSPITA HOSPITA TROMETHAM INE PER 15 MG INJECTION J2704 [facility] PROPOFOL 5 N N 10 MG COMMUNTIY COMMUNTIY HOSPITA HOSPITA INJECTION J3010 [facility] FENTANYL 5 N N CITRATE COMMUNTIY COMMUNTIY 0.1 MG HOSPITA HOSPITA INJECTION J2250 [facility] 5 N N MIDAZOLAM COMMUNTIY COMMUNTIY HCL PER HOSPITA HOSPITA 1 MG HYSTEROSC 63103 [facility] OPY 5 N N ENDOMETRI COMMUNTIY COMMUNTIY AL HOSPITA HOSPITA ABLATION GLUC BLD 84081 [facility] GLUC MNTR 5 N N DEV COMMUNTIY COMMUNTIY CLEARED HOSPITA [place] [address] [facility] SURG 5 N N PATHOLOGY COMMUNTIY COMMUNTIY HOSPITA HOSPITA GROSS&SHERRY ROSCOPIC EXAM CULTURE 24349 [facility]-DAY BACTERIAL 5 [facility] BLOOD [facility] AEROBIC W/ID ISOLATES COMPREHEN 49991 LATTER-DAY LATTER-DAY SIVE 5 [facility] METABOLIC [facility] [place] [address] LATTER-DAY LATTER[facility]DAY LACTATE 5 [facility] BLOOD 67474 LATTER-DAY LATTER-DAY COUNT 5 [facility] COMPLETE [facility] AUTO&AUTO DIFRNTL WBC THERAPEUT 97433 [facility] LATTER-DAY IC 5 [facility] INJECTION [facility] [place] [address] LAT[facility]DAY [facility] INFUSION [address] [place] [address] THERAPY/P [facility] ROPHYLAXI S /DX 1ST TO 1 [place] [address] [facility] INFUSION [address] [place] [address] PROPHYLAX IS/DX EA HOUR THER 17839 [facility] PROPH/DX [address] [place] [address] NJX EA [facility] SEQL [place] PUSH SBST/[place] [address] [facility] TRANSVAGI 5 N N NAL COMMUNTIY COMMUNTIY HOSPITA HOSPITA NEBULIZER E0570 MED-CARE MED-CARE WITH 5 DIABETIC DIABETIC COMPRESSO & MEDICAL & MEDICAL R CYTP C/V 94596 [facility] AUTO [facility] LYR PREPJ SCR MNL RESCR PHYS IADNA 84221 [facility], [facility] HUMAN [facility] [place] [address] [facility], SURG 5 [facility] PATHOLOGY GROSS&SHERRY ROSCOPIC EXAM INCISION 84076 EMERGENCY HERFEL & 2 CARE JARAD DRAINAGE PHYS ABSCESS [facility]THERN COMPLICAT ED/MULTIP LE INCISION 22912 [facility] & 2 MELONIE MELONIE DRAINAGE FT FT ABSCESS LEXUS LEXUS COMPLICAT ED/MULTIP LE IM ADM 12934 [facility] PRQ ID 2 MELONIE MELONIE SUBQ/IM FT FT NJXS 1 [place] VACCINE TDAP 12198 [facility] VACCINE 7 2 MELONIEEVELINA STRATTONBETH YRS/> IM FT FT LEXUS [place]EXUS SUSCEPTIB 61369 [facility] LTY STDY 2 MELONIE MELONIE ANTIMICRB FT FT IAL [place] MICRO/AGA R DILUTJ SMR PRIM 72382 [facility] SRC 2 MELONIE MELONIE GRAM/GIEM FT FT SA STAIN [place] BCT FUNGI/NOAH L CUL BACT 63486 [facility] XCPT 2 MELONIE MELONIE URINE FT FT BLOOD/STO [place] OL AEROBIC ISOL CUL BACT 73248 [facility] AEROBIC 2 MELONIE MELONIE ADDL FT FT METHS [place] DEFINITIV E EA ISOL SMR PRIM 42082 [facility] SRC WET 2 MELONIE MELONIE MOUNT FT FT NFCT AGT L[place] IADNA 62080 [facility] CHLAMYDIA 2 MELONIE MELONIE FT FT TRACHOMAT [place] IS AMPLIFIED PROBE TQ GLUCOSE 07069 [facility] BLOOD 2 MELONIE MELONIE REAGENT FT FT STRIP [place] IADNA 31539 [facility] NEISSERIA 2 MELONIE MELONIE FT FT GONORRHOE [place]US [place] AE AMPLIFIED PROBE TQ URNLS DIP 69683 [facility] 2 MELONIE MELONIE STICK/TAB FT FT LET [place] REAGENT AUTO MICROSCOP Y GONADOTRO 47263 [facility] PIN 2 MELONIE MELONIE CHORIONIC FT FT [place] QUALITATI VE GONADOTRO [address] PIN 2 MELONIE MELONIE CHORIONIC FT FT [place] QUALITATI VE BLOOD 9[address] ST [address] COUNT 2 MELONIE MELONIE COMPLETE FT FT AUTO&AUTO [place] DIFRNTL WBC HEPATIC [address] FUNCTION 2 MELONIE MELONIE PANEL FT FT LEXUS [place]EXUS INJECTION J0696 ST ST 2 MELONIE MELONIE CEFTRIAXO FT FT NE SODIUM L[place] PER [address] IC 2 MELONIE MELONIE PROPHYLAC FT FT TIC/DX L[place]US [place]ERT[place] INJECTION SUBQ/[place] [address] ST LIPASE 2 MELON[place] [address] ABDOMEN & 2 MELONIE MELONIE PELVIS FT FT W/O [place] CONTRAST MATERIAL URNLS DIP [address] 2 MELONIE MELONIE STICK/TAB FT FT LET [place] REAGENT AUTO MICROSCOP Y BASIC 59256 ST METABOLIC 2 MELONIE MELONIE PANEL FT FT CALCIUM [place] TOTAL INJECTION J18[address] 2 MELONIE MELONIE KETOROLAC FT FT L[place] TROMETHAM INE PER [address] N VENOUS 2 MELONIE MELONIE BLOOD FT FT [place]IP[place] [address] AMYLASE 2 MELONIE MELONIE FT FT [place] CULTURE [address] BACTERIAL 2 MELONIE MELONIE FT FT QUANTTATI [place] VE COLONY COUNT URINE CULTURE 67219 ST BCT 2 MELONIE MELONIE ISOL&PRSM FT FT PTV ID [place] ISOLATE EA URINE CULTURE [address] TYPING 2 MELONIECHANTE [facility] IMMUNOLOG FT FT IC L[place]US [place] OTH/THN IMMUNOFLU ORES INJECTION J2360 ST ST 2 MELONIE MELONIE ORPHENADR FT FT INE [place] CITRATE UP TO [address] IC 2 MELONIE MELONIE PROPHYLAC FT FT TIC/DX LEXUS LEXUS INJECTION SUBQ/IM RADEX [address] SHOULDER 2 MELONIE MELONIE COMPLETE FT FT MINIMUM 2 LEXUS LEXUS VIEWS BLOOD [address] COUNT 2 MELONIE MELONIE COMPLETE AUTO&AUTO MEDICALCE MEDICALCE DIFRNTL NTER NTER WBC RADIOLOGI 08705 ST ST [facility] 2 VIEWS MEDICALCE MEDICALCE FRONTAL&L NTER NTER ATERAL NATRIURET [address] ST [address] IC 2 MELONIE MELONIE PEPTIDE [place] [address] TROPONIN 2 MELONIE MELONIE QUANTITAT KRISTIE MEDICALCE MEDICALCE NTER NTER ECG [address] [facility]INE [facility] ECG W/LEAST MEDICALCE MEDICALCE 12 LDS NTER NTER TRCG ONLY W/O I&R BASIC [address] METABOLIC 2 MELONIE MELONIE PANEL CALCIUM MEDICALCE MEDICALCE TOTAL NTER NTER COLLECTIO [address] N VENOUS 2 MELONIE MELONIE [...] UP L[place] [address] [place] [address] ABDOMEN & 1 MELONIE MELONIE PELVIS FT FT W/CONTRAS L[place] T MATERIAL HEPATIC [address] FUNCTION 1 MELONIEEVELINA WILHELM PANEL FT FT LEXUS [place] PROTHROMB [address] IN TIME 1 MELONIE MELONIE FT FT [place] THERAPEUT [address] IC 1 MELONIE [facility] INJECTION FT FT IV PUSH L[place] EACH NEW DRUG GONADOTRO [address] PIN 1 MELONIE WILHELM CHORIONIC FT FT [place] QUALITATI VE BLOOD [address]3 ST COUNT 1 MELONIEEVELINA WILHELM COMPLETE FT FT AUTO&AUTO [place] DIFRNTL WBC THER [address] PROPH/DX 1 MELONIECHANTE WILHELM NJX IV FT FT PUSH [place] SINGLE/1S T SBST/DRUG INJECTION J1170 ST ST 1 MELONIECHANTE WILHELM HYDROMORP FT FT KM UP L[place]US [place] TO 4 MG BASIC 92796 [facility] METABOLIC 1 MELONIE WILHELM PANEL FT FT CALCIUM [place] TOTAL THER 93676 ST PROPH/DX 1 MELONIE WILHELM NJX EA FT FT SEQL IV L[place] PUSH SBST/DRUG FAC COLLECTIO 77577 ST N VENOUS 1 MELONIE WILHELM BLOOD FT FT VENIPUNCT [place] URE INJECTION J2405 ST ST 1 MELONIECHANTE WILHELM ONDANSETR FT FT ON HCL [place] PER [address] HAND 1 MELONIE WILHELM MINIMUM 3 FT FT VIEWS [place] Encounters Encounter Start End Date Code Location Performer Type Date [facility]ICE 390[facility] 6 6 N T VISIT NEUROLOGY 10 MINUTES [facility] - 6 6 LATTER-DAY OUTPATIEN HOSP T OFFICE 88658 [facility] RAFIQ CAR OUTPATIEN 6 6 Y OF T VISIT [place] 15 HOSPI [facility] - 6 6 N OUTPATIEN COMMUNTIY T HOSPITA OFFICE 66126 MANUEL FRANCIS OUTPATIEN 6 6 GAR T NEW 30 CHIROPRAC MINUTES TIC CENTE OFFICE 68137 [facility] RAFIQ CAR OUTPATIEN 6 6 Y OF T VISIT [place] 15 HOSPI MINUTES EMERGENCY 51600 [facility] 6 6 N DEPARTMEN COMMUNTIY T VISIT HOSPITA HIGH/URGE NT [facility] - 6 6 N OUTPATIEN COMMUNTIY T HOSPITA OFFICE [id number] [facility] OUTPATIEN 5 5 FOOT & N PETEY T VISIT ANKLE CE 15 MINUTES OFFICE 81643 [facility] JANE OUTPATIEN 5 5 MEDICAL PEGGY T VISIT SERV 10 FOUNDATIO MINUTES [facility] - 5 5 N OUTPATIEN COMMUNTIY T [facility] - 5 5 MELONIE INPATIENT [place] EMERGENCY 70364 [facility] 5 5 NEMO DEPARTMEN EMERGENCY T VISIT PHYS HIGH/URGE NT SEVERITY [facility] - 5 5 N OUTPATIEN COMMUNTIY T HOSPITA OFFICE 08765 [facility]OWN OUTPATIEN 5 5 MEDICAL JEAN T VISIT SERV 15 FOUNDATIO MINUTES [facility] - 5 5 MELONIE OUTPATIEN [place] T OFFICE 77519 [facility] OUTPATIEN 5 5 N T VISIT NEUROLOGY 15 MINUTES [facility] 5 5 LATTER-DAY OUTPATIEN HOSP T OFFICE 20557 S RAFIQ CAR OUTPATIEN 5 5 NURSE T VISIT PRACTITIO 15 NER GR [facility] - 5 5 N [facility] 5 5 N OUTPATIEN COMMUNTIY T HOSPITA OFFICE 01029 [facility] JANE OUTPATIEN 5 5 MEDICAL PEGGY T VISIT SERV 15 FOUNDATIO MINUTES N EMERGENCY [id number] [facility] 5 5 NEMO TOD VISIT EMERGENCY HIGH SERV SEVERITY& THREAT FUN [facility] - 5 5 HEALTH OUTPATIEN [facility] - 5 5 N OUTPATIEN COMMUNTIY T HOSPITA OFFICE 02093 [facility] JANE OUTPATIEN 5 5 MEDICAL PEGGY T VISIT SERV 15 FOUNDATIO MINUTES N OFFICE 64200 [facility] OUTPATIEN 5 5 N T VISIT NEUROLOGY 15 MINUTES OFFICE 81139 [facility] OUTPATIEN 2 2 POINT T VISIT FAMILY 15 CARE, IN MINUTES EMERGENCY 15226 EMERGENCY HERFEL 2 2 CARE JARAD DEPARTMEN PHYS T VISIT [facility] SEVER[facility] EMERGENCY 94804 EMERGENCY RICHARDSO 2 2 CARE N [place] DEPARTMEN PHYS T VISIT [facility]URGE NT SEVERITY [facility] - 2 2 MELONIE OUTPATIEN FT T [facility] [address]98[address] ST 2 2 MELONIE DEPARTMEN FT T VISIT [facility] SEVERITY EMERGENCY 80647 EMERGENCY HERFEL 2 2 CARE JARAD DEPARTMEN PHYS T VISIT [facility] HIGH/URGE NT SEVERITY EMERGENCY 52938 ST 2 2 MELONIE DEPARTMEN FT T VISIT [facility] MODERATE SEVERITY EMERGENCY 39246 EMERGENCY HERFEL 2 2 CARE JARAD DEPARTMEN PHYS T VISIT [facility] SEVER[facility] - 2 2 MELONIE OUTPATIEN FT T [facility] - 2 2 MELONIE OUTPATIEN FT T [facility] EMERGENCY 20650 EMERGENCY GAUTRAUD DEPT 2 2 CARE LENNOX VISIT PHYS HIGH [facility] SEVERITY& THREAT FUN EMERGENCY 35624 ST 2 2 MELONIE DEPARTMEN FT T VISIT [facility] HIGH/URGE NT SEVERITY EMERGENCY 60587 EMERGENCY LOVE TACO 2 2 CARE DEPARTMEN PHYS T VISIT [facility] - 2 2 MELONIE OUTPATIEN FT T [facility] 39221 ST 2 2 MELONIE DEPARTMEN FT T VISIT [facility] MODERATE SEVERITY EMERGENCY 43446 EMERGENCY CARMEN 2 2 CARE MAURY DEPARTMEN PHYS T VISIT [facility] HIGH/URGE NT SEVERITY EMERGENCY 85791 ST 2 2 MELONIE DEPARTMEN T VISIT MEDICAL HIGH/URGE NTER NT [facility] ST - 2 2 MELONIE OUTPATIEN T [facility] ST - 1 1 MELONIE LIPATIEN FT T [facility] [address] ST 1 1 MELONIE DEPARTMEN FT T VISIT [facility] HIGH/URGE NT SEVERITY EMERGENCY 39746 EMERGENCY VEST KEVON 1 1 CARE DEPARTMEN PHYS T VISIT [facility] HIGH/URGE NT SEVERITY EMERGENCY 43409 EMERGENCY RICHARDSO 1 1 CARE N THO DEPARTMEN PHYS T VISIT [facility] HIGH/URGE NT SEVERITY
[2017-07-16 06:21] LABS: LYMPH # 5.1 K/mm3 (0.7-4.5); LYMPH % 57.7 % (10-50.0)
--- OUTSIDE RECORDS SUMMARY | 2017-07-16 06:21 | External Medical Summary Rpt | CCD ---
Author Author , LYNDA Organization LYNDA Address Unknown Phone [email or web address] Care Team Providers Care Physician Aide Name Role Phone [facility] Unavailable Unavailable [facility] BROWN JEAN, BROWN Unavailable Unavailable JEAN [facility], Unavailable Unavailable [facility], Unavailable Unavailable [facility] RAFIQ CAR, RAFIQ CAR Unavailable Unavailable [place] Un[facility] MAYORGA RIM, MAYORGA RIM Unavailable Unavailable [facility] Un[facility] [place], Unavailable Un[facility] Unavailable Unavailable HOSPITA, [facility], Unavailable Unavailable [facility] STEFFANIE PECK Unavailable Unavailable TOLUCINDA GILMORE Unavailable Unavailable [facility] Unavailable Unavailable CARE, [facility], [facility] HERFEL JARAD, HERFEL Unavailable Unavailable JARAD [facility] NURSE Unavailable Unavailable PRACTITIONER GR, [facility] N[facility]SE [facility] & Unavailable Unavailable ANKLE [facility], [facility] LOVE TACO, LOVE [...] Unavailable Unavailable [facility] Unavailable Unavailable [facility], [facility] Unavailable Unavailable [facility] SERV, [facility] SERV CARMEN MAURY, Unavailable Unavailable CARMEN MAURY [facility] Unavailable Unavailable [place], [facility] Unavailable Unavailable [facility], [facility] Unavailable [facility]available PHYSICIANS, [facility] Unavailable Unavailable SELINA, [facility] SELINA [facility], [facility] Unavailable Unavailable MEDICAL [facility], [facility] Unavailable Unavailable MEDICAL [facility] Unavailable [facility], [facility] OVIDIO LUND, OVIDIO LUND Unavailable Unavailable Purpose Continuity of Care Document - 04-11-2011 through 2016 Problems Code Diagnosis DOS Provider Status [id number] OBSTRUCTIVE 03-01-2016 [facility] SLEEP MEDICAL APNEA ADULT PEDIATRIC [id number] MIGRAINE 02-24-2016 [facility] W/AURA NOT NEUROLOGY INTRACT W/O STAT MIGRAINOSUS M797 FIBROMYALGI 02-24-2016 [facility] D34 BENIGN 12-08-2015 [facility] NEOPLASM OF RELIGION THYROID HOSP GLAND E119 TYPE 2 12-08-2015 [facility] DIABETES RELIGION MELLITUS HOSP WITHOUT COMPLICATIO NS I10 ESSENTIAL 12-08-2015 [facility] PRIMARY RELIGION HYPERTENSIO HOSP N M542 CERVICALGIA 10-30-2015 [facility] HOSPI M546 PAIN IN 10-29-2015 [place] [facility] SPINE C CENTE M6240 CONTRACTURE 10-29-2015 [place] OF MUSCLE [facility] UNSPECIFIED C CENTE SITE H6122 IMPACTED 10-13-2015 [facility] LEFT EAR HOSPI R42 DIZZINESS 10-13-2015 [facility] GIDDINESS HOSPI R0602 SHORTNESS 10-11-2015 [facility] OF BREATH COMMUNTIY HOSPITA R0789 OTHER CHEST 10-11-2015 [facility] PAIN COMMUNTIY HOSPITA R110 NAUSEA 10-11-2015 [facility] COMM[facility]TIY HOSPITA R51 HEADACHE 10-11-2015 [facility] COMM[facility]TIY HOSPITA Z8614 PERSONAL HX 10-11-2015 [facility] RSIST STAPH INFECTION Z9884 BARIATRIC 10-11-2015 [facility] SURGERY COMMUNTIY STATUS HOSPITA M109 GOUT 09-11-2015 [place] UNSPECIFIED FOOT & ANKLE CE M1990 UNSPECIFIED 09-11-2015 [place] FOOT & OSTEOARTHRI ANKLE CE TIS UNSPECIFIED SITE T82374 SPONTANEOUS 09-11-2015 [place] RUPTURE FOOT & FLEXOR ANKLE CE TENDONS UNS LOWER LEG M7660 ACHILLES 09-11-2015 [place] TENDINITIS FOOT & UNSPECIFIED ANKLE CE LEG A630 ANOGENITAL 09-02-2015 [facility] [id number] UNSPECIFIED 08-26-2015 [facility] INJURY COMMUNTIY LEFT ANKLE HOSPITA INITIAL ENCOUNTER Z23 ENCOUNTER 08-18-2015 . FOR [facility] IMMUNIZATIO SELINA N N843 POLYP OF 08-14-2015 [facility] N34930 PAIN IN 08-07-2015 [facility] [place] LEFT [facility] RADIOLOGY S70580 PAIN IN 08-07-2015 [facility] LEFT LEG N EMERGENCY PHYS J52646 PAIN IN 08-07-2015 [facility] [place] LEFT FOOT [facility] J15672 OTHER LONG 07-28-2015 [facility] CURRENT [facility] DRUG THERAPY E6601 MORBID 07-22-2015 SE[facility] OBESITY DUE PHYSICIANS TO EXCESS CALORIES Z6843 BODY MASS 07-22-2015 INDEX BMI M[facility] 50-59.9 PHYSICIANS ADULT E109 TYPE 1 07-15-2015 . DIABETES [facility] MELLITUS SELINA WITHOUT COMPLICATIO NS L500 ALLERGIC 07-15-2015 . URTICARIA [facility] SELINA G72380 ENCOUNTER 07-15-2015 . FOR OTHER M[facility]IE PREPROCEDUR SELINA AL EXAMINATION 60847 MIGRAINE 06-26-2015 [facility] W/AURA W/O NEUROLOGY INTRACT W/O STATUS MIGRNOSUS 7291 UNSPECIFIED 06-26-2015 [facility] MYALGIA NEUROLOGY AND MYOSITIS 60404 DIAB W/O 06-25-2015 [facility] COMP TYPE RELIGION II/UNS NOT HOSP STATED UNCNTRL 6825 CELLULITIS 06-02-2015 [facility] NURSE AND ABSCESS PRACTITIONE OF BUTTOCK R GR 2189 LEIOMYOMA 05-25-2015 [facility], SERV UNSPECIFIED FOUNDATION 83185 MORBID 05-25-2015 [facility] OBESITY COMMUNTIY HOSPITA 4019 UNSPECIFIED 05-25-2015 [facility] ESSENTIAL COMMUNTIY HYPERTENSIO HOSPITA N 38875 ASTHMA, 05-25-2015 [facility] UNSPECIFIED COMMUNTIY , HOSPITA UNSPECIFIED STATUS 55621 ENDOMETRIAL 05-25-2015 [facility] HYPERPLASIA [facility]OUNDATION UNSPECIFIED 6253 DYSMENORRHE 05-25-2015 [facility] 6262 EXCESSIVE 05-25-2015 [facility]QUENT SERV [facility] MENSTRUATIO N 6271 POSTMENOPAU 05-25-2015 [facility] CRISTIN COMMUNTIY BLEEDING HOSPITA V8544 BODY MASS 05-25-2015 [facility] INDEX COMMUNTIY 60.0-69.9 HOSPITA ADULT V7283 OTHER 05-19-2015 [facility] SPECIFIED COMMUNTIY PRE-OPERATI HOSPITA VE EXAMINATION 05869 FEVER 05-18-2015 [facility] UNSPECIFIED N EMERGENCY SERV 3393 DRUG 03-20-2015 [facility] INDUCED NEUROLOGY HEADACHE NOT ELSEWHERE CLASSIFIED 0794 HUMAN 03-17-2015 [facility] VIRUS IN CCE & UNS SITE 4660 ACUTE 09-04-2012 [facility] [place] 6828 CELLULITIS 07-15-2012 EMERGENCY AND ABSCESS CARE PHYS OF OTHER [facility] SPECIFIED SITE 6823 CELLULITIS 05-22-2012 EMERGENCY AND ABSCESS CARE PHYS OF UPPER [facility] ARM AND FOREARM 6826 CELLULITIS 05-02-2012 ST AND ABSCESS M[facility]IE OF LEG FT [place] EXCEPT FOOT 48677 UNSPECIFIED 05-02-2012 ST SLEEP MELONIE APNEA FT [...] OF VULVA M[facility] AND VAGINA FT [place] 46549 UNSPECIFIED 04-16-2012 ST VAGINITIS M[facility] AND FT [place] VULVOVAGINI TIS 82188 UNSPECIFIED 03-23-2012 ST M[facility] PYELONEPHRI FT [place] TIS 47826 ABDOMINAL 03-23-2012 ST PAIN RIGHT [facility] UPPER FT [place] QUADRANT V5867 LONG-TERM 03-23-2012 ST USE OF [facility] INSULIN FT [place] 6859 UNSPEC 01-24-2012 EMERGENCY LOCAL CARE PHYS INFECTION [facility] SKIN&SUBCUT ANEOUS TISSUE 8409 SPRAIN&STRA 12-28-2011 ST IN UNSPEC [facility] SITE FT [place] SHOULDER&UP PER ARM 7823 EDEMA 11-08-2011 ST [facility] ER V148 PERSONAL 11-08-2011 ST HISTORY [facility] ALLERGY OTH MEDICALCENT SPEC ER MEDICINAL AGTS V1507 PERSONAL 11-08-2011 ST HISTORY [place] [address] ABDOMINAL 09-16-2011 ST TENDERNESS M[facility] RIGHT UPPER FT [place] QUADRANT 73381 ABDOMINAL 09-16-2011 ST TENDERNESS [place] RIGHT LOWER FT [place] QUADRANT 9150 ABRASION/FR 09-16-2011 ST ICTION BURN [facility] FINGER W/O FT [place] MENTION INF 9222 CONTUSION 09-16-2011 ST OF [place] ABDOMINAL FT [place] WALL 86457 CONTUSION 09-16-2011 ST OF HAND [place] FT [place] 27078 UNSPECIFIED 04-27-2011 EMERGENCY SITE OF CARE PHYS ANKLE [facility] SPRAIN AND STRAIN 90918 CONTUSION 04-27-2011 EMERGENCY OF ANKLE CARE PHYS [facility] V1588 PERSONAL 04-27-2011 EMERGENCY HISTORY OF CARE PHYS FALL [facility] 25668 ABDOMINAL 04-11-2011 EMERGENCY PAIN, CARE PHYS UNSPECIFIED [facility] SITE E86.0 Dehydration F32.9 Major depressive disorder, single episode, unspecified H92.01 Otalgia, right ear K29.00 Acute gastritis without bleeding L02.01 Cutaneous abscess of face L03.211 Cellulitis of face L81.8 Other specified disorders of pigmentatio n R10.13 Epigastric pain R11.0 Nausea R11.2 Nausea with vomiting, unspecified R19.7 Diarrhea, unspecified R63.5 Abnormal weight gain S00.03XA CONTUSION OF SCALP, INITIAL ENCOUNTER S01.01XA LACERATION WITHOUT FOREIGN BODY OF SCALP, INITIAL ENCOUNTER S16.1XXA STRAIN OF MUSCLE, FASCIA AND TENDON AT NECK LEVEL, INIT Z98.84 Bariatric surgery status Allergies, Adverse Reactions, Alerts Clinical Alert Notifications [...] Order Detail nces retati t Range on CBC w auto diff (07-15-2017 19:33) Red = 4.70 4.2-5.4 complet blood 017 M/mm3 ed cell 19:33 count Automat = 12.9 11.5-17 complet ed 017 % .5 ed erythro 19:33 cyte distrib ution width Blood = 10.6 4.8-10. complet leukocy 017 K/MM3 8 ed pily 19:33 count (number /volume ) Automat = 0.1 0-0.2 complet ed 017 K/MM3 ed blood 19:33 basophi l count (count/ vo Baso % = 0.5 % 0.1-2.0 complet 017 ed 19:33 Automat = 0.1 0.0-0.4 complet ed 017 K/mm3 ed blood 19:33 eosinop hil count Automat = 1.1 % 0.1-12. complet ed 017 0 ed blood 19:33 eosinop hils/10 0 leukocy t Blood = 5.5 1.8-7.8 complet granulo 017 K/mm3 ed cytes 19:33 automat ed count (numb Granulo = 51.8 37.0-80 complet cyte 017 % .0 ed percent 19:33 age Blood = 42.4 37.0-47 complet hematoc 017 % .0 ed rit 19:33 (volume fractio n) Blood = 13.5 12.2-16 complet hemoglo 017 g/dL .2 ed bin 19:33 measure ment (mass/v olum Absolut 10-14-2 = 4.5 0.7-4.5 complet e 017 K/mm3 ed lymphoc 19:33 yte count Lymphoc = 42.1 10-50.0 complet yte 017 % ed count, 19:33 blood, automat ed Mean = 28.8 27-31.2 complet corpusc 017 pg ed ular 19:33 hemoglo bin (MCH) determ Automat = 32.0 31.8-35 complet ed 017 g/dl .4 ed erythro 19:33 cyte mean corpusc ular h Automat = 90.2 82.2-97 complet ed 017 fl .8 ed erythro 19:33 cyte mean corpusc ular v Absolut = 0.5 0.1-1.0 complet e 017 K/mm3 ed monocyt 19:33 e count [place] % = 4.4 % 1.7-9.3 complet 017 ed 19:33 Automat = 7.9 7.4-10. complet ed 017 fl 4 ed blood 19:33 platele t mean volume christine Blood = 292 142-424 complet platele 017 K/mm3 ed t count 19:33 Cardiac enzymes (07-15-2017 19:33) Serum = 1.4 0-4.0 complet or 017 U/L ed plasma 19:33 creatin e kinase MB (CK-M Serum < 0.5 0.0-3.6 complet or 017 ng/mL ed plasma 19:33 creatin e kinase MB measu Serum = 35 26-192 complet or 017 U/L ed plasma 19:33 creatin e kinase measure m Serum < 0.02 0.00-0. complet or 017 ng/mL 06 ed plasma 19:33 troponi n i.cardi ac measu Comprehensive metabolic panel (07-15-2017 19:33) Serum = 1.0 1.1-1.8 complet or 017 ed plasma 19:33 albumin /globul in mass ra Serum = 3.9 3.4-5.0 complet or 017 gm/dL ed plasma 19:33 albumin measure ment (mas Serum = 111 46-116 complet or 017 U/L ed plasma 19:33 alkalin e phospha tase hcristine Serum = 0.3 0.2-1.0 complet or 017 mg/dL ed plasma 19:33 total bilirub in measure m Serum = 22 7-18 complet or 017 mg/dL ed plasma 19:33 urea nitroge n measure men Serum = 9.7 8.5-10. complet or 017 mg/dL 1 ed plasma 19:33 calcium measure ment (mas Serum = 102 98-107 complet or 017 mmoL/L ed plasma 19:33 chlorid e measure ment (mo Carbon = 29 21.0-32 complet dioxide 017 mmoL/L .0 ed 19:33 measure ment Serum = 1.2 0.55-1. complet or 017 mg/dL 02 ed plasma 19:33 creatin ine measure ment ( Estimat = 114 50-200 complet ion of 017 ML/MIN ed creatin 19:33 ine renal clearan ce Estimat = 47 59- complet ed 017 ML/MIN ed glomeru 19:33 lar filtrat ion rate (GF Serum = 4.0 1.3-3.2 complet globuli 017 gm/dL ed n 19:33 measure ment (mass/v olume) Serum = 162 74-106 complet or 017 mg/dL ed plasma 19:33 glucose measure ment (mas Serum = 4.4 3.5-5.1 complet potassi 017 mmoL/L ed um 19:33 measure ment Serum = 138 136-145 complet sodium 017 mmoL/L ed measure 19:33 ment Serum = 16 15-37 complet or 017 U/L ed plasma 19:33 asparta te aminotr ansfera ALT = 25 12-78 complet (SGPT) 017 U/L ed ser/rissa 19:33 s Protein = 7.9 6.4-8.2 complet total 017 gm/dL ed ser/rissa 19:33 s Urate [facility] (06-30-2017 14:55) Urate 7.1 3.1-7.1 complet SerPl-m 017 mg/dL ed Cnc 14:55 Hgb A1c MFr Bld (06-30-2017 14:55) Hgb A1c 8.0 % 4.7-6.0 complet MFr 017 ed Bld 14:55 Procedures Procedure DOS Code Location Performer Comment TUBING A7037 [facility] USED WITH 6 MEDICAL MEDICAL POSITIVE AIRWAY PRESSURE DEVICE LIPID 07200 [facility] PANEL 6 RELIGION RELIGION HOSP HOSP COMPREHEN 50282 [facility] SIVE 6 RELIGION RELIGION METABOLIC HOSP HOSP PANEL URNLS DIP 41429 [facility] 6 RELIGION RELIGION STICK/TAB HOSP HOSP LET REAGENT AUTO MICROSCOP Y HEMOGLOBI 88101 [facility] N 6 RELIGION RELIGION GLYCOSYLA HOSP HOSP DONOVAN A1C COLLECTIO 38317 [facility] N VENOUS 6 RELIGION RELIGION BLOOD HOSP HOSP VENIPUNCT URE TUBING A7037 [facility] USED WITH 6 MEDICAL MEDICAL POSITIVE AIRWAY PRESSURE DEVICE RADEX 70486 [facility] SPINE 6 N N CERVICAL COMMUNTIY COMMUNTIY 4 OR 5 HOSPITA HOSPITA VIEWS MANUAL 44289 [place] THERAPY 6 TQS 1/> CHIROPRAC CHIROPRAC REGIONS TIC CENTE TIC CENTE EACH 15 MINUTES RADEX 41859 [place] PENNY SPINE 6 GAR LUMBOSACR CHIROPRAC AL 2/3 TIC CENTE VIEWS RADEX 98361 [place] SPINE 6 CERVICAL CHIROPRAC CHIROPRAC 2 OR 3 TIC CENTE TIC CENTE VIEWS CHIROPRAC 76231 [place] PENNY TIC 6 GAR MANIPULAT CHIROPRAC [place] TIC CENTE SPINAL 1-2 REGIONS NONCOVERE A9270 [facility] D ITEM OR 6 N N SERVICE COMMUNTIY COMMUNTIY HOSPITA HOSPITA THER 36922 [facility] PROPH/DX 6 N N NJX IV COMMUNTIY COMMUNTIY PUSH HOSPITA HOSPITA SINGLE/1S T SBST/DRUG ECG 03399 [facility] ROUTINE 6 N N ECG COMMUNTIY COMMUNTIY W/LEAST HOSPITA HOSPITA 12 LDS TRCG ONLY W/O I&[place] [address] [facility] HEAD/BRAI 6 N N N W/O COMMUNTIY COMMUNTIY CONTRAST HOSPITA HOSPITA MATERIAL RADIOLOGI 18563 [facility] C 6 N N EXAMINATI COMMUNTIY COMMUNTIY ON CHEST HOSPITA HOSPITA SINGLE VIEW FRONTAL INJECTION J2405 [facility] 6 N N ONDANSETR COMMUNTIY COMMUNTIY ON HCL HOSPITA HOSPITA PER 1 MG COLLECTIO 49999 [facility] N VENOUS 6 N N BLOOD COMMUNTIY COMMUNTIY VENIPUNCT HOSPITA HOSPITA URE COMPREHEN 13443 [facility] SIVE 6 N N METABOLIC COMMUNTIY [place]TI[place] [address] [facility] TROPONIN 6 N N QUANTITAT COMMUNTIY COMMUNTIY KRISTIE HOSPITA HOSPITA BLOOD 46746 [facility] COUNT 6 N N COMPLETE COMMUNTIY COMMUNTIY AUTO&AUTO HOSPITA HOSPITA DIFRNTL WBC TUBING A7037 [facility] USED WITH 5 MEDICAL MEDICAL POSITIVE AIRWAY PRESSURE DEVICE FACE MASK A7031 [facility] T[facility] 5 [...] MEDICAL DISPBL USED W/POS ARWAY PRESS DEVICE RADEX 38659 [facility] ANKLE 5 N N COMPLETE COMMUNTIY COMMUNTIY MINIMUM 3 HOSPITA HOSPITA [facility] [address] [place] DISCHARGE 5 MELONIE CHARLINE DAY MANAGEMEN PHYSICIAN T 30 S MIN/< IIV4 VACC [address] [facility] PRESRV 5 MELONIE WILHELM FREE 0.5 SELINA SELINA ML FOR IM USE ADMINISTR G[address] [facility] ATION OF 5 MELONIE WILHELM INFLUENZA SELINA SELINA VIRUS VACCINE LEVEL III 42256 [facility] SURG 5 [facility] PATHOLOGY GROSS&SHERRY ROSCOPIC EXAM BIOPSY 26207 GIL[facility] JANE VULVA/PER 5 MEDICAL PEGGY INEUM 1 SERV LESION FOUNDATIO SPX N DESTRUCTI 61169 [facility] JANE ON BENIGN 5 MEDICAL PEGGY LESIONS SERV UP TO 14 FOUNDATIO N THERAPEUT 40210 [facility] IC 5 N N PROPHYLAC COMMUNTIY COMMUNTIY TIC/DX HOSPITA HOSPITA INJECTION SUBQ/IM INJ J2930 [facility] METHYLPRD 5 N N NISOLONE COMMUNTIY COMMUNTIY SODIUM HOSPITA HOSPITA SUCCNAT TO 125 MG LAPS 36167 [facility] 5 MELONIE RSTRICTIV PX PHYSICIAN LONGITUDI S NAL GASTRECTO MY ECG [address] [facility] ROUTINE 5 MELONIE WILHELM ECG SELINA SELINA W/LEAST 12 LDS TRCG ONLY W/O I&R BLOOD [address] [facility] TYPING 5 MELONIE WILHELM SEROLOGIC SELINA SELINA RH (D) ANTIBODY [address] [facility] SCREEN 5 MELONIE WILHELM RBC EACH SELINA SELINA SERUM TECHNIQUE BLOOD [address] [facility] TYPING 5 MELONIE WILHELM SEROLOGIC SELINA SELINA ABO COMPREHEN [address] [facility] SIVE 5 MELONIE WILHELM METABOLIC SELINA SELINA PANEL BLOOD [address] [facility] COUNT 5 MELONIE WILHELM COMPLETE SELINA SELINA AUTO&AUTO DIFRNTL WBC INJECTION J2704 [facility] PROPOFOL 5 N N 10 MG COMMUNTIY COMMUNTIY HOSPITA HOSPITA INJECTION J3010 [facility] FENTANYL 5 N N CITRATE COMMUNTIY COMMUNTIY 0.1 MG HOSPITA HOSPITA GLUC BLD 90647 [facility] GLUC MNTR 5 N N DEV COMMUNTIY COMMUNTIY CLEARED HOSPITA HOSPITA FDA SPEC HOME USE INJECTION J2250 [facility] 5 N N MIDAZOLAM COMMUNTIY COMMUNTIY HCL PER HOSPITA HOSPITA 1 [place] [address] [facility] SURG 5 N N PATHOLOGY COMMUNTIY COMMUNTIY HOSPITA HOSPITA GROSS&SHERRY ROSCOPIC EXAM INJECTION J1885 [facility] 5 N N KETOROLAC COMMUNTIY COMMUNTIY HOSPITA HOSPITA TROMETHAM INE PER 15 MG HYSTEROSC 23091 [facility] OPY 5 N N ENDOMETRI COMMUNTIY COMMUNTIY AL HOSPITA HOSPITA ABLATION INJECTION J1100 [facility] 5 N N DEXAMETHO COMMUNTIY COMMUNTIY SONE HOSPITA HOSPITA SODIUM PHOSPHATE 1 MG INJECTION J2001 [facility] 5 N N LIDOCAINE COMMUNTIY COMMUNTIY HCL HOSPITA HOSPITA INTRAVENO US INFUS 10 MG RINGERS J7120 [facility] LACTATE 5 N N INFUSION COMMUNTIY COMMUNTIY UP TO HOSPITA HOSPITA 1000 CC COMPREHEN 17711 RELIGION RELIGION SIVE [address] [place] [address] METABOLIC [facility] [place] [address] RELIGION RELIGION INFUSION [address] [place] [address] PROPHYLAX IS/[place] [address] RELIGION RELIGION LACTATE [address] [place] [address] THER [address] RELIGION RELIGION PROPH/DX [address] [place] [address] NJX EA [facility] SEQL IV PUSH SBST/DRUG FAC CULTURE 61883 RELIGION RELIGION BACTERIAL [address] [place] [address] BLOOD [facility] AEROBIC W/ID ISOLATES THERAPEUT 21731 RELIGION RELIGION IC [address] [place] [address] INJECTION [facility] [place] [address] RELIGION RELIGION INFUSION 5 [facility] THERAPY/P [facility] ROPHYLAXI S /DX 1ST TO 1 HR BLOOD 39434 RELIGION RELIGION COUNT 5 [facility] COMPLETE [facility] AUTO&[place] [address] [facility] TRANSVAGI 5 N N NAL COMMUNTIY COMMUNTIY HOSPITA HOSPITA NEBULIZER E0570 MED-CARE MED-CARE WITH 5 DIABETIC DIABETIC COMPRESSO & MEDICAL & MEDICAL R CYTP C/V 85975 [facility], AUTO THIN 5 [facility] LYR PREPJ SCR MNL RESCR PHYS IADNA 72041 [facility], HUMAN 5 [facility] [place]APILL[place] [address] [facility], SURG 5 [facility] PATHOLOGY GROSS&SHERRY ROSCOPIC EXAM INCISION 71474 EMERGENCY HERFEL & 2 CARE JARAD DRAINAGE PHYS ABSCESS [facility] COMPLICAT ED/MULTIP LE INCISION 35918 [facility] & 2 MELONIE WILHELM DRAINAGE FT FT ABSCESS [place] COMPLICAT ED/MULTIP LE SUSCEPTIB 30846 [facility] LTY STDY 2 MELONIE WILHELM ANTIMICRB FT FT IAL [place] MICRO/AGA R DILUTJ SMR PRIM 41694 [facility] SRC 2 MELONIE WILHELM GRAM/GIEM FT FT SA STAIN [place] BCT FUNGI/NOAH L IM ADM 75972 [facility] PRQ ID 2 MELONIE WILHELM SUBQ/IM FT FT NJXS 1 [place] VACCINE TDAP 44712 [facility] VACCINE 7 2 MELONIE WILHELM YRS/> IM FT FT [place] CUL BACT 53487 [facility] XCPT 2 MELONIE WILHELM URINE FT FT BLOOD/STO [place] OL AEROBIC ISOL CUL BACT 64549 [facility] AEROBIC 2 MELONIE WILHELM ADDL FT FT METHS [facility] DEFINITIV E EA ISOL SMR PRIM 49465 [facility] SRC WET 2 MELONIE MELONIE MOUNT FT FT NFCT AGT L[facility] IADNA 44014 [facility] CHLAMYDIA 2 MELONIE MELONIE FT FT TRACHOMAT [facility] IS AMPLIFIED PROBE TQ IADNA 29298 [facility] NEISSERIA 2 MELONIE MELONIE FT FT GONORRHOE [facility] AE AMPLIFIED PROBE TQ GLUCOSE 16823 [facility] BLOOD 2 MELONIE MELONIE REAGENT FT FT STRIP [facility] GONADOTRO 82998 [facility] PIN 2 MELONIE MELONIE CHORIONIC FT FT [facility] QUALITATI VE URNLS DIP 37822 [facility] 2 MELONIE MELONIE STICK/TAB FT FT LET [facility] REAGENT AUTO MICROSCOP Y HEPATIC 38941 [facility] FUNCTION 2 MELONIE MELONIE PANEL FT FT [facility] BLOOD 19079 [facility] COUNT 2 MELONIE MELONIE COMPLETE FT FT AUTO&AUTO [facility] DIFRNTL WBC GONADOTRO 09479 [facility] PIN 2 MELONIE MELONIE CHORIONIC FT FT [facility] QUALITATI VE INJECTION J0696 [facility] 2 MELONIE MELONIE CEFTRIAXO FT FT NE SODIUM [facility] PER 250 MG URNLS DIP 76617 [facility] 2 MELONIE MELONIE STICK/TAB FT FT LET [facility] REAGENT AUTO MICROSCOP Y BASIC 99350 [facility] METABOLIC 2 MELONIE MELONIE PANEL FT [place] [address] [facility] ABDOMEN & 2 MELONIE MELONIE PELVIS FT FT W/O [place] [address] [facility] LIPASE 2 MELONIE MELONIE FT FT [facility] THERAPEUT 67471 [facility] IC 2 MELONIE MELONIE PROPHYLAC FT FT TIC/DX [facility] INJECTION SUBQ/[place] [address] [facility] AMYLASE 2 MELONIE MELONIE FT FT [facility] CULTURE [address] BACTERIAL 2 MELONIE STRATTONBETH FT FT QUANTTATI [facility] VE COLONY COUNT URINE CULTURE [address] BCT 2 MELONIE STRATTONBETH ISOL&PRSM FT FT PTV ID L[facility] ISOLATE EA URINE CULTURE [address] TYPING 2 MELONIE WILHELM IMMUNOLOG FT FT IC [facility] OTH/THN IMMUNOFLU ORES COLLECTIO [address] N VENOUS 2 MELONIE STRATTONBETH BLOOD FT FT VENIPUNCT [facility] URE INJECTION J1885 ST [address] 2 MELONIE MELONIE KETOROLAC FT FT L[facility] TROMETHAM INE PER [address] 2 MELONIE MELONIE ORPHENADR FT FT INE [facility] CITRATE UP TO [address] IC 2 MELONIEEVELINA STRATTONBETH PROPHYLAC FT FT TIC/DX [facility] INJECTION SUBQ/IM RADEX [address] SHOULDER 2 MELONIE MELONIE COMPLETE FT FT MINIMUM 2 [facility] VIEWS NATRIURET [address] IC 2 MELONIE MELONIE PEPTIDE [place] [address] TROPONIN 2 [facility] QUANTITAT [facility] NTER NTER BLOOD [address] COUNT 2 MELONIE MELONIE COMPLETE AUTO&AUTO [facility]ICAL[facility]ICAL[facility] DIFRNTL NTER NTER WBC BASIC [address] METABOLIC 2 [facility] PANEL CALCIUM MEDICALCE MEDICALCE TOTAL NTER NTER RADIOLOGI [address] C EXAM 2 MELONIE MELONIE CHEST 2 VIEWS MEDICALCE MEDICALCE FRONTAL&L NTER NTER ATERAL ECG [address] ROUTINE 2 [facility] CHAPEL ECG W/LEAST MEDICALCE MEDICALCE 12 LDS NTER NTER TRCG ONLY W/O I&R COLLECTIO [address] N VENOUS 2 [facility] BLOOD VENIPUNCT MEDICALCE MEDICALCE URE NTER NTER INJECTION J2405 ST ST 1 MELONIE WILHELM ONDANSETR FT FT ON HCL [place] PER [address] 1 MELONIECHANTE WINCHESTERTH HYDROMORP FT FT KM UP L[place] TO [address] 300-399 1 MELONIE WILHELM MG/ML FT FT IODINE [place] [address] ABDOMEN & 1 MELONIE WILHELM PELVIS FT FT W/CONTRAS [place] T MATERIAL BLOOD [address] COUNT 1 MELONIE WILHELM COMPLETE FT FT AUTO&AUTO [place] DIFRNTL WBC GONADOTRO [address] PIN 1 MELONIE WILHELM CHORIONIC FT FT [place] QUALITATI VE BASIC [address] METABOLIC 1 MELONIE WILHELM PANEL FT FT CALCIUM L[place] TOTAL THER [address] PROPH/DX 1 MELONIE WILHELM NJX EA FT FT SEQL IV [place] PUSH SBST/DRUG FAC HEPATIC [address] FUNCTION 1 MELONIE WILHELM PANEL FT FT [place] THERAPEUT [address] IC 1 MELONIE WILHELM INJECTION FT FT IV PUSH [place] EACH NEW DRUG THER 932[address] ST [address] PROPH/DX 1 MELONIE WILHELM NJX IV FT FT PUSH [place] SINGLE/1S T SBST/DRUG INJECTION J1170 ST ST 1 MELONIE WILHELM HYDROMORP FT FT KM UP [place] TO [address] IN TIME 1 MELONIE WILHELM FT FT [place] COLLECTIO [address]99[address] N VENOUS 1 MELONIE WILHELM BLOOD FT FT VENIPUNCT [place] URE RADEX [address] HAND 1 MELONIE WILHELM MINIMUM 3 FT FT VIEWS [place] INJECTION J2405 ST ST 1 MELONIE WILHELM LULUETR FT FT ON HCL [place] PER 1 MG Encounters Encounter Start End Date Code Location Performer Type Date [facility] T [facility] 10 [facility] 6 6 RELIG[facility] OUTPATIEN HOSP [facility] - 6 6 N OUTPATIEN COMMUNTIY T HOSPITA OFFICE 70485 [facility] OUTPATIEN 6 6 Y OF T VISIT [place] 15 HOSPI MINUTES OFFICE 85936 MANUEL FRANCIS OUTPATIEN 6 6 GAR T [place] 30 CHIROPRAC MINUTES TIC CENTE OFFICE 20607 [facility] 6 6 [facility] T [facility]IT [place] [facility] 6 6 N OUTPATIEN COMMUNTIY T HOSPITA EMERGENCY 23902 [facility] 6 6 N DEPARTMEN COMMUNTIY T VISIT HOSPITA HIGH/URGE NT SEVERITY OFFICE [facility] FOOT & N PETEY T VISIT ANKLE CE 15 MINUTES OFFICE 65283 GILMER JANE OUTPATIEN 5 5 MEDICAL PEGGY T VISIT SERV 10 FOUNDATIO MINUTES [facility] 5 5 N OUTPATIEN COMMUNTIY T [facility] - 5 5 [facility] S[facility]INA [facility] 97987 [facility] 5 5 NEMO DEPARTMEN EMERGENCY T VISIT PHYS HIGH/URGE NT SEVERITY [facility] - 5 5 N OUTPATIEN COMMUNTIY T HOSPITA OFFICE 92267 [facility]IL[facility] BROWN OUTPATIEN 5 5 MEDICAL JEAN T VISIT SERV 15 FOUNDATIO MINUTES [facility] ST. - 5 5 MELONIE OUTPATIEN SELINA T OFFICE 46969 AQUILINO MELGAR OUTPATIEN 5 5 N T VISIT NEUROLOGY 15 MINUTES [facility] - 5 5 RELIGION OUTPATIEN HOSP T OFFICE 28762 [facility] OUTPATIEN 5 5 NURSE T VISIT PRACTITIO 15 NER GR MINUTES [facility] - 5 5 N OUTPATIEN COMMUNTIY T [facility] - 5 5 N OUTPATIEN COMMUNTIY T HOSPITA OFFICE 54604 GIL[facility] JANE OUTPATIEN 5 5 MEDICAL PEGGY T VISIT SERV 15 FOUNDATIO MINUTES [facility] 82891 [facility] DEPT 5 5 NEMO TOD VISIT EMERGENCY HIGH SERV SEVERITY& THREAT [facility] - 5 5 N OUTPATIEN COMMUNTIY T HOSPITA OFFICE 41602 GILMER JANE OUTPATIEN 5 5 MEDICAL PEGGY T VISIT SERV 15 FOUNDATIO MINUTES N OFFICE 37259 AQUILINO MELGAR OUTPATIEN 5 5 N T VISIT NEUROLOGY 15 MINUTES OFFICE 14314 [facility] OUTPATIEN 2 2 POINT T VISIT FAMILY 15 CARE, IN MINUTES EMERGENCY 89140 EMERGENCY HERFEL 2 2 CARE JARAD DEPARTMEN PHYS T VISIT [facility] SE[facility] EMERGENCY 92329 EMERGENCY RICHARDSO 2 2 CARE N THO DEPARTMEN PHYS T VISIT [facility] H[facility]/URGE NT SEVERITY EMERGENCY 34840 ST 2 2 MELONIE DEPARTMEN FT T VISIT [facility] SEVERITY EMERGENCY 55209 EMERGENCY HERFEL 2 2 CARE JARAD DEPARTMEN PHYS T VISIT [facility] SEVERITY [facility] ST - 2 2 MELONIE OUTPATIEN FT T [facility] 21907 EMERGENCY HERFEL 2 2 CARE JARAD DEPARTMEN PHYS T VISIT [facility] HIGH/URGE NT SEVERITY EMERGENCY 66036 ST 2 2 MELONIE DEPARTMEN FT T VISIT [facility] MODERATE SEVERITY [facility] ST - 2 2 MELONIE OUTPATIEN FT T [facility] 06154 EMERGENCY GAUTRAUD DEPT 2 2 CARE LENNOX VISIT PHYS HIGH [facility] SEVERITY& THREAT FUN EMERGENCY 40975 ST 2 2 MELONIEEVELINA NORWOODMEN FT T VISIT [facility] HIGH/URGE NT SEVERITY [facility]OSPITAL ST - 2 2 MELONIE OUTPATIEN FT T [facility] 12182 EMERGENCY LOVE TACO 2 2 CARE DEPARTMEN PHYS T VISIT [facility] HIGH/URGE NT SEVERITY HOSPITAL ST - 2 2 MELONIE OUTPATIEN FT T [facility] 52022 ST 2 2 MELONIE NORWOODMEN FT T VISIT [facility] MODERATE SEVERITY EMERGENCY 75109 EMERGENCY CARMEN 2 2 CARE MAURY DEPARTMEN PHYS T VISIT [facility] HIGH/URGE NT SEVERITY HOSPITAL ST - 2 2 MELONIE OUTPATIEN T MEDICALCE NTER EMERGENCY 49970 ST 2 2 MELONIE DEPARTMEN T VISIT MEDICALCE HIGH/URGE NTER NT SEVERITY EMERGENCY 70992 ST 1 1 MELONIE DEPARTMEN FT T VISIT [facility] HIGH/URGE NT SEVERITY [facility]OSPITAL ST - 1 1 MELONIE OUTPATIEN FT T [facility] 64832 EMERGENCY VEST KEVON 1 1 CARE DEPARTMEN PHYS T VISIT [facility] HIGH/URGE NT SEVERITY EMERGENCY 44814 EMERGENCY RICHARDSO 1 1 CARE N THO DEPARTMEN PHYS T VISIT [facility]/URGE NT SEVERITY
--- OUTSIDE RECORDS SUMMARY | 2017-07-16 06:21 | External Medical Summary Rpt | CCD ---
Author Author , LYNDA Organization LYNDA Address Unknown Phone [email or web address] Care Team Providers Care Tightener Name Role Phone [facility] Unavailable Unavailable [facility] BROWN JEAN, BROWN Unavailable Unavailable JEAN [facility], Unavailable Unavailable [facility], Unavailable Unavailable [facility] RAFIQ CAR, RAFIQ CAR Unavailable Unavailable [place] [facility] MAYORGA RIM, MAYORGA RIM Unavailable Unavailable [facility] [place], Unavailable Unavailable [facility] [facility] Unavailable Unavailable HOSPITA, [facility], Unavailable Unavailable [facility] STEFFANIE PECK Unavailable Unavailable TOLUCINDA GILMORE Unavailable Unavailable [facility] Unavailable Unavailable [facility], [facility] IN HERFEL JARAD, HERFEL Unavailable Unavailable JARAD [facility] Unavailable Unavailable PRACTITIONER GR, [facility] & Unavailable Unavailable [facility], [facility] LOVE TACO, LOVE [...] Unavailable Unavailable [facility], [facility] Unavailable Unavailable [facility] SERV, [facility] CARMEN MAURY, Unavailable Unavailable CARMEN MAURY [facility] Unavailable Unavailable [place], [facility] Unavailable Unavailable [facility], [facility] Unavailable Unavailable PHYSICIANS, [facility] Unavailable Unavailable SELINA, [facility] SELINA [facility], [facility] Unavailable Unavailable [facility], [facility] Unavailable Unavailable [facility] Unavailable [facility] OVIDIO LUND, OVIDIO LUND Unavailable Unavailable Purpose Continuity of Care Document - 04-11-2011 through 2016 Problems Code Diagnosis DOS Provider Status G4733 OBSTRUCTIVE 03-01-2016 [facility] SLEEP [facility] ADULT PEDIATRIC S73265 MIGRAINE 02-24-2016 [facility] NOT NEUROLOGY INTRACT W/O STAT MIGRAINOSUS M797 FIBROMYALGI 02-24-2016 [facility] D34 BENIGN 12-08-2015 [facility] NEOPLASM OF RELIGIOUS THYROID HOSP GLAND E119 TYPE 2 12-08-2015 [facility] DIABETES RELIGIOUS MELLITUS HOSP WITHOUT COMPLICATIO NS I10 ESSENTIAL 12-08-2015 [facility] PRIMARY RELIGIOUS HYPERTENSIO HOSP N M542 CERVICALGIA 10-30-2015 [facility] M546 PAIN IN 10-29-2015 [place] [facility] SPINE C CENTE M6240 CONTRACTURE 10-29-2015 [place] OF MUSCLE [facility] UNSPECIFIED C CENTE SITE H6122 IMPACTED 10-13-2015 [facility] LEFT EAR HOSPI R42 DIZZINESS 10-13-2015 [facility] GIDDINESS HOSPI R0602 SHORTNESS 10-11-2015 [facility] OF BREATH COMMUNTIY HOSPITA R0789 OTHER CHEST 10-11-2015 [facility] PAIN COMMUNTIY HOSPITA R110 NAUSEA 10-11-2015 [facility] COMM[facility] R51 HEADACHE 10-11-2015 [facility] Z8614 PERSONAL HX 10-11-2015 [facility] RSIST STAPH INFECTION Z9884 BARIATRIC 10-11-2015 [facility] SURGERY COMMUNTIY STATUS HOSPITA M109 GOUT 09-11-2015 [place] UNSPECIFIED FOOT & ANKLE CE M1990 UNSPECIFIED 09-11-2015 [place] FOOT & OSTEOARTHRI ANKLE CE TIS UNSPECIFIED SITE P00480 SPONTANEOUS 09-11-2015 [place] RUPTURE FOOT & FLEXOR ANKLE CE TENDONS UNS LOWER LEG M7660 ACHILLES 09-11-2015 [place] TENDINITIS FOOT & UNSPECIFIED ANKLE CE LEG A630 ANOGENITAL 09-02-2015 [facility] iDoneThis [facility] [id number] UNSPECIFIED 08-26-2015 [facility] INJURY COMMUNTIY LEFT ANKLE HOSPITA INITIAL ENCOUNTER Z23 ENCOUNTER 08-18-2015 . FOR [facility] IMMUNIZATIO SELINA N N843 POLYP OF 08-14-2015 [facility] L94461 PAIN IN 08-07-2015 [facility] LEFT [facility] V42867 PAIN IN 08-07-2015 [facility] LEFT LEG N EMERGENCY PHYS N52960 PAIN IN 08-07-2015 [facility] [place] LEFT FOOT [facility] H62968 OTHER LONG 07-28-2015 [facility] MEDICAL TERM SERV CURRENT [facility] DRUG THERAPY E6601 MORBID 07-22-2015 SEVERE [facility] OBESITY DUE PHYSICIANS TO EXCESS CALORIES Z6843 BODY MASS 07-22-2015 INDEX BMI MELONIE 50-59.9 PHYSICIANS ADULT E109 TYPE 1 07-15-2015 . DIABETES M[facility]IE MELLITUS SELINA WITHOUT COMPLICATIO NS L500 ALLERGIC 07-15-2015 . URTICARIA M[facility] SELINA D66080 ENCOUNTER 07-15-2015 . FOR OTHER [facility] PREPROCEDUR SELINA AL EXAMINATION 82110 MIGRAINE 06-26-2015 [facility] W/O NEUROLOGY INTRACT W/O STATUS MIGRNOSUS 7291 UNSPECIFIED 06-26-2015 [facility] MYALGIA NEUROLOGY AND MYOSITIS 77342 DIAB W/O 06-25-2015 [facility] COMP TYPE RELIGIOUS II/UNS NOT HOSP STATED UNCNTRL 6825 CELLULITIS 06-02-2015 [facility] NURSE AND ABSCESS PRACTITIONE OF BUTTOCK R GR 2189 LEIOMYOMA 05-25-2015 CT MEDICAL OF [facility]TER[facility], SERV UNSPECIFIED FOUNDATION 09360 MORBID 05-25-2015 [facility] OBESITY COMMUNTIY HOSPITA 4019 UNSPECIFIED 05-25-2015 [facility] ESSENTIAL COMMUNTIY HYPERTENSIO HOSPITA N 81653 ASTHMA, 05-25-2015 [facility] UNSPECIFIED COMMUNTIY , HOSPITA UNSPECIFIED STATUS 69739 ENDOMETRIAL 05-25-2015 [facility] HYPERPLASIA [facility] UNSPECIFIED 6253 DYSMENORRHE 05-25-2015 [facility] 6262 EXCESSIVE 05-25-2015 [facility]QUENT SERV [facility] MENSTRUATIO N 6271 POSTMENOPAU 05-25-2015 [facility] CRISTIN COMMUNTIY BLEEDING HOSPITA V8544 BODY MASS 05-25-2015 [facility] INDEX COMMUNTIY 60.0-69.9 HOSPITA ADULT V7283 OTHER 05-19-2015 [facility] SPECIFIED COMMUNTIY PRE-OPERATI HOSPITA VE EXAMINATION 08893 FEVER 05-18-2015 [facility] UNSPECIFIED N EMERGENCY SERV 3393 DRUG 03-20-2015 [facility] INDUCED NEUROLOGY HEADACHE NOT ELSEWHERE CLASSIFIED 0794 HUMAN 03-17-2015 [facility] VIRUS IN CCE & UNS SITE 4660 ACUTE 09-04-2012 [facility] [place] 6828 CELLULITIS 07-15-2012 EMERGENCY AND ABSCESS CARE PHYS OF OTHER [facility]THER[facility] SPECIFIED SITE 6823 CELLULITIS 05-22-2012 EMERGENCY AND ABSCESS CARE PHYS OF UPPER NORTHERN ARM AND FOREARM 6826 CELLULITIS 05-02-2012 ST AND ABSCESS MELONIE OF LEG FT [place] EXCEPT FOOT 47843 UNSPECIFIED 05-02-2012 ST SLEEP MELONIE APNEA FT [...] OF VULVA MELONIE AND VAGINA FT [place] 32524 UNSPECIFIED 04-16-2012 ST VAGINITIS MELONIE AND FT [place] VULVOVAGINI TIS 47706 UNSPECIFIED 03-23-2012 ST M[facility] PYELONEPHRI FT [place] TIS 58886 ABDOMINAL 03-23-2012 ST PAIN RIGHT [place] UPPER FT [place] QUADRANT V5867 LONG-TERM 03-23-2012 ST USE OF M[facility] INSULIN FT [place] 6890 UNSPEC 01-24-2012 EMERGENCY LOCAL CARE PHYS INFECTION [facility] SKIN&SUBCUT ANEOUS TISSUE 8409 SPRAIN&STRA 12-28-2011 ST IN UNSPEC M[facility]IE SITE FT [place] SHOULDER&UP PER ARM 7823 EDEMA 11-08-2011 ST [facility] ER V148 PERSONAL 11-08-2011 ST HISTORY M[facility] ALLERGY OTH MEDICALCENT SPEC ER MEDICINAL AGTS V1507 PERSONAL 11-08-2011 ST HISTORY [place] [address] ABDOMINAL 09-16-2011 ST TENDERNESS MEL[place]IE RIGHT UPPER FT [place] QUADRANT 06042 ABDOMINAL 09-16-2011 ST TENDERNESS M[place] RIGHT LOWER FT [place] QUADRANT 9150 ABRASION/FR 09-16-2011 ST ICTION BURN M[facility] FINGER W/O FT [place] MENTION INF 9222 CONTUSION 09-16-2011 ST OF M[place]IE ABDOMINAL FT [place] WALL 74503 CONTUSION 09-16-2011 ST OF HAND MELONIE FT [place] 12760 UNSPECIFIED 04-27-2011 EMERGENCY SITE OF CARE PHYS ANKLE [facility] SPRAIN AND STRAIN 73594 CONTUSION 04-27-2011 EMERGENCY OF ANKLE CARE PHYS [facility]THER[facility] V1588 PERSONAL 04-27-2011 EMERGENCY HISTORY OF CARE PHYS FALL [facility] 18523 ABDOMINAL 04-11-2011 EMERGENCY PAIN, CARE PHYS UNSPECIFIED [...] 017 K/mm3 ed monocyt 19:33 e count [place] % = 4.4 % 1.7-9.3 complet 017 [...] ed plasma 19:33 alkalin e phospha tase christine Serum = 0.3 0.2-1.0 complet or 017 [...] 017 gm/dL ed ser/rissa 19:33 s [facility] (06-30-2017 14:55) Urate 7.1 3.1-7.1 complet SerPl-m 017 mg/dL ed Cnc 14:55 Hgb A1c MFr Bld (06-30-2017 14:55) Hgb A1c 8.0 % 4.7-6.0 complet MFr 017 ed Bld 14:55 Procedures Procedure DOS Code Location Performer Comment TUBING A7037 [facility] USED WITH 6 MEDICAL MEDICAL POSITIVE AIRWAY PRESSURE DEVICE LIPID 42296 [facility] PANEL 6 RELIGIOUS RELIGIOUS HOSP HOSP COMPREHEN 04174 [facility] SIVE 6 RELIGIOUS RELIGIOUS METABOLIC HOSP HOSP PANEL URNLS DIP 84229 [facility] 6 RELIGIOUS RELIGIOUS STICK/TAB HOSP HOSP LET REAGENT AUTO MICROSCOP Y HEMOGLOBI 12217 [facility] N 6 RELIGIOUS RELIGIOUS GLYCOSYLA HOSP HOSP DONOVAN A1C COLLECTIO 83273 [facility] N VENOUS 6 RELIGIOUS RELIGIOUS BLOOD HOSP HOSP VENIPUNCT URE TUBING A7037 [facility]RO USED WITH 6 MEDICAL MEDICAL POSITIVE AIRWAY PRESSURE DEVICE RADEX 42672 [facility] SPINE 6 N N CERVICAL COMMUNTIY COMMUNTIY 4 OR 5 HOSPITA HOSPITA VIEWS MANUAL 64641 [place] THERAPY 6 TQS 1/> CHIROPRAC CHIROP[facility]AC REGIONS TIC CENTE TIC CENTE EACH 15 MINUTES RADEX 24447 [place] PENNY SPINE 6 GAR LUMBOSACR CHIROPRAC AL 2/3 TIC CENTE VIEWS RADEX 09496 [place] SPINE 6 CERVICAL CHIROPRAC CHIROPRAC 2 OR 3 TIC CENTE TIC CENTE VIEWS CHIROPRAC 16732 [place] PENNY TIC 6 GAR MANIPULAT CHIROPRAC [place] TIC CENTE SPINAL 1-2 REGIONS NONCOVERE A9270 [facility] D ITEM OR 6 N N SERVICE COMMUNTIY COMMUNTIY HOSPITA HOSPITA THER 23538 [facility] PROPH/DX 6 N N NJX IV COMMUNTIY COMMUNTIY PUSH HOSPITA HOSPITA SINGLE/1S T SBST/DRUG ECG 96802 [facility] ROUTINE 6 N N ECG COMMUNTIY COMMUNTIY W/LEAST HOSPITA HOSPITA 12 LDS TRCG ONLY W/O I&[place] [address] [facility] HEAD/BRAI 6 N N N W/O COMMUNTIY COMMUNTIY CONTRAST HOSPITA HOSPITA MATERIAL RADIOLOGI 41666 [facility] C 6 N N EXAMINATI COMMUNTIY COMMUNTIY ON CHEST HOSPITA HOSPITA SINGLE VIEW FRONTAL INJECTION J2405 [facility] 6 N N ONDANSETR COMMUNTIY COMMUNTIY ON HCL HOSPITA HOSPITA PER 1 MG COLLECTIO 15077 [facility] N VENOUS 6 N N BLOOD COMMUNTIY COMMUNTIY VENIPUNCT HOSPITA HOSPITA URE COMPREHEN 70020 [facility] SIVE 6 N N METABOLIC COMMUNTIY COMMUNTIY [place] [address] [facility] TROPONIN 6 N N QUANTITAT COMMUNTIY COMMUNTIY KRISTIE HOSPITA HOSPITA BLOOD 05152 [facility] COUNT 6 N [...] DISPBL USED W/POS ARWAY PRESS DEVICE RADEX 74895 [facility] ANKLE 5 N N COMPLETE COMMUNTIY COMMUNTIY MINIMUM 3 HOSPITA HOSPITA [facility] [address] [facility] [place] DISCHARGE 5 MELONIE CHARLINE DAY MANAGEMEN PHYSICIAN T 30 S MIN/< IIV4 VACC 58436 [facility] PRESRV 5 MELONIE WILHELM FREE 0.5 SELINA SELINA ML FOR IM USE ADMINISTR G0008 [facility] ATION OF 5 MELONIE WILHELM INFLUENZA SELINA SELINA VIRUS VACCINE LEVEL III 27868 [facility] SURG 5 [facility] PATHOLOGY GROSS&SHERRY ROSCOPIC EXAM BIOPSY 06417 GIL[facility] JANE VULVA/PER 5 MEDICAL PEGGY INEUM 1 SERV LESION FOUNDATIO SPX N DESTRUCTI 32283 [facility] JANE ON BENIGN 5 MEDICAL PEGGY LESIONS SERV UP TO 14 FOUNDATIO N THERAPEUT 47269 [facility] IC 5 N N PROPHYLAC COMMUNTIY COMMUNTIY TIC/DX HOSPITA HOSPITA INJECTION SUBQ/IM INJ J2930 [facility] METHYLPRD 5 N N NISOLONE COMMUNTIY COMMUNTIY SODIUM HOSPITA HOSPITA SUCCNAT TO 125 MG LAPS 36335 [facility] GSTRC 5 MELONIE RSTRICTIV PX PHYSICIAN LONGITUDI S NAL GASTRECTO MY ECG 80362 [facility] ROUTINE 5 MELONIE WILHELM ECG SELINA SELINA W/LEAST 12 LDS TRCG ONLY W/O I&R BLOOD 07840 [facility] TYPING 5 MELONIE WILHELM SEROLOGIC SELINA SELINA RH (D) ANTIBODY 83541 [facility] SCREEN 5 MELONIE WILHELM RBC EACH SELINA SELINA SERUM TECHNIQUE BLOOD 57790 [facility] TYPING 5 MELONIE WILHELM SEROLOGIC SELINA SELINA ABO COMPREHEN 74070 [facility] SIVE 5 MELONIE WILHELM METABOLIC SELINA SELINA PANEL BLOOD 74881 [facility] COUNT 5 MELONIE WILHELM COMPLETE SELINA SELINA AUTO&AUTO DIFRNTL WBC INJECTION J2704 [facility] PROPOFOL 5 N N 10 MG COMMUNTIY COMMUNTIY HOSPITA HOSPITA INJECTION J3010 [facility] FENTANYL 5 N N CITRATE COMMUNTIY COMMUNTIY 0.1 MG HOSPITA HOSPITA GLUC BLD 92796 [facility] GLUC MNTR 5 N N DEV COMMUNTIY COMMUNTIY CLEARED HOSPITA HOSPITA FDA SPEC HOME USE INJECTION J2250 [facility] 5 N N MIDAZOLAM COMMUNTIY COMMUNTIY HCL PER HOSPITA H[place]PITA 1 [place] [address] [facility] SURG 5 N N PATHOLOGY COMMUNTIY COMMUNTIY HOSPITA HOSPITA GROSS&SHERRY ROSCOPIC EXAM INJECTION J1885 [facility] 5 N N KETOROLAC COMMUNTIY COMMUNTIY HOSPITA HOSPITA TROMETHAM INE PER 15 MG HYSTEROSC 03633 [facility] OPY 5 N N ENDOMETRI COMMUNTIY COMMUNTIY AL HOSPITA HOSPITA ABLATION INJECTION J1100 [facility] 5 N N DEXAMETHO COMMUNTIY COMMUNTIY SONE HOSPITA HOSPITA SODIUM PHOSPHATE 1 MG INJECTION J2001 [facility] 5 N N LIDOCAINE COMMUNTIY COMMUNTIY HCL HOSPITA HOSPITA INTRAVENO US INFUS 10 MG RINGERS J7120 [facility] LACTATE 5 N N INFUSION COMMUNTIY COMMUNTIY UP TO HOSPITA HOSPITA 1000 CC COMPREHEN 80172 RELIGIOUS RELIGIOUS SIVE [address] [place] [address] METABOLIC [facility] [place] [address] RELIGIOUS RELIGIOUS INFUSION [address] [place] [address] PROPHYLAX IS/[place] [address] RELIGIOUS RELIGIOUS LACTATE [address] [place] [address] THER 90839 RELIGIOUS RELIGIOUS PROPH/DX [address] [place] [address] NJX EA [facility] [place] SEQL IV PUSH SBST/DRUG FAC CULTURE 28355 RELIGIOUS RELIGIOUS BACTERIAL [address] [place] [address] BLOOD [facility] AEROBIC W/ID ISOLATES THERAPEUT 56842 RELIGIOUS RELIGIOUS IC [address] [place] [address] INJECTION [facility] [address] RELIGIOUS RELIGIOUS INFUSION 5 [facility] THERAPY/P [facility] ROPHYLAXI S /DX 1ST TO 1 HR BLOOD 46695 RELIGIOUS RELIGIOUS COUNT 5 [facility] COMPLETE [facility] AUTO&[place] [address] [facility] TRANSVAGI 5 N N NAL COMMUNTIY COMMUNTIY HOSPITA HOSPITA NEBULIZER E0570 MED-CARE MED-CARE WITH 5 DIABETIC DIABETIC COMPRESSO & MEDICAL & MEDICAL R CYTP C/V 84030 [facility], AUTO THIN 5 [facility] LYR PREPJ SCR MNL RESCR PHYS IADNA 97575 [facility], HUMAN 5 [facility] [place] [address] [facility] SURG 5 [facility] PATHOLOGY GROSS&SHERRY ROSCOPIC EXAM INCISION 07731 EMERGENCY HERFEL & 2 CARE JARAD DRAINAGE PHYS ABSCESS [facility] COMPLICAT ED/MULTIP LE INCISION 28204 [facility] & 2 MELONIE WILHELM DRAINAGE FT FT ABSCESS [place] COMPLICAT ED/MULTIP LE SUSCEPTIB 04235 [facility] LTY STDY 2 MELONIE WILHELM ANTIMICRB FT FT IAL [place] MICRO/AGA R DILUTJ SMR PRIM 57454 [facility] SRC 2 MELONIE WILHELM GRAM/GIEM FT FT SA STAIN [place] BCT FUNGI/NOAH L IM ADM 11740 [facility] PRQ ID 2 MELONIE WILHELM SUBQ/IM FT FT NJXS 1 [place] VACCINE TDAP 00870 [facility] VACCINE 7 2 MELONIE WILHELM YRS/> IM FT FT [place] CUL BACT 23045 [facility] XCPT 2 MELONIE WILHELM URINE FT FT BLOOD/STO [place] OL AEROBIC ISOL CUL BACT 08000 [facility] AEROBIC 2 MELONIE WILHELM ADDL FT FT METHS [place] DEFINITIV E EA ISOL SMR PRIM 46617 [facility] SRC WET 2 MELONIE MELONIE MOUNT FT FT NFCT AGT [place] IADNA 78271 [facility] CHLAMYDIA 2 MELONIE MELONIE FT FT TRACHOMAT [place] IS AMPLIFIED PROBE TQ IADNA 99011 [facility] NEISSERIA 2 MELONIE MELONIE FT FT GONORRHOE [place] AE AMPLIFIED PROBE TQ GLUCOSE 97013 [facility] BLOOD 2 MELONIE MELONIE REAGENT FT FT STRIP [place] GONADOTRO 67730 [facility] PIN 2 MELONIE MELONIE CHORIONIC FT FT [place] QUALITATI VE URNLS DIP 62402 [facility] 2 MELONIE MELONIE STICK/TAB FT FT LET [place] REAGENT AUTO MICROSCOP Y HEPATIC 74273 [facility] FUNCTION 2 MELONIE MELONIE PANEL FT FT [place] BLOOD 86758 [facility] COUNT 2 MELONIE MELONIE COMPLETE FT FT AUTO&AUTO [place] DIFRNTL WBC GONADOTRO 02524 [facility] PIN 2 MELONIE MELONIE CHORIONIC FT FT [place] QUALITATI VE INJECTION J0696 [facility] 2 MELONIE MELONIE CEFTRIAXO FT FT NE SODIUM [place] PER 250 MG URNLS DIP 85852 [facility] 2 MELONIE MELONIE STICK/TAB FT FT LET [place] REAGENT AUTO MICROSCOP Y BASIC 37696 [facility] METABOLIC 2 MELONIE MELONIE PANEL FT [place] [address] [facility] ABDOMEN & 2 MELONIE MELONIE PELVIS FT FT W/O [place] [address] [facility] LIPASE 2 MELONIE MELONIE FT FT L[place]US [place] THERAPEUT 91740 [facility] IC 2 MELONIE MELONIE PROPHYLAC FT FT TIC/DX [place] INJECTION SUBQ/[place] [address] [facility] AMYLASE 2 MELONIE MELONIE FT FT [place] CULTURE [address] BACTERIAL 2 MELONIE STRATTONBETH FT FT QUANTTATI [place] VE COLONY COUNT URINE CULTURE [address] BCT 2 MELONIE STRATTONBETH ISOL&PRSM FT FT PTV ID [place] ISOLATE EA URINE CULTURE [address] TYPING 2 MELONIE WILHELM IMMUNOLOG FT FT IC [place] OTH/THN IMMUNOFLU ORES COLLECTIO [address] N VENOUS 2 MELONIE STRATTONBETH BLOOD FT FT VENIPUNCT [place] URE INJECTION J1885 ST ST 2 MELONIE MELONIE KETOROLAC FT FT [place] TROMETHAM INE PER [address] 2 MELONIE MELONIE ORPHENADR FT FT INE [place] CITRATE UP TO [address] IC 2 MELONIEEVELINA STRATTONBETH PROPHYLAC FT FT TIC/DX [place] INJECTION SUBQ/IM RADEX [address] SHOULDER 2 MELONIE MELONIE COMPLETE FT FT MINIMUM 2 LEXUS [place] VIEWS NATRIURET [address] IC 2 MELONIE MELONIE PEPTIDE [place] [address] TROPONIN 2 [facility] QUANTITAT KRISTIE MEDICALCE MEDICALCE NTER NTER BLOOD [address] COUNT 2 MELONIE MELONIE COMPLETE AUTO&AUTO MEDICALCE MEDICALCE DIFRNTL NTER NTER WBC BASIC [address] METABOLIC 2 [facility] PANEL CALCIUM MEDICALCE MEDICALCE TOTAL NTER NTER RADIOLOGI [address] C EXAM 2 MELONIE MELONIE CHEST 2 VIEWS MEDICALCE MEDICALCE FRONTAL&L NTER NTER ATERAL ECG [address] [facility] W/LEAST MEDICALCE MEDICALCE 12 LDS NTER NTER TRCG ONLY W/O I&R COLLECTIO [address] N VENOUS 2 [facility] BLOOD VENIPUNCT MEDICALCE MEDICALCE URE NTER NTER INJECTION J2405 ST ST 1 MELONIE WILHELM ONDANSETR FT FT ON HCL [place] PER [address] IN[address] 1 MELONIECHANTE WINCHESTERTH HYDROMORP FT FT KM UP [place] TO [address] 300-399 1 MELONIE WILHELM MG/ML FT FT IODINE [place] [address] ABDOMEN & 1 MELONIE WILHELM PELVIS FT FT W/CONTRAS [place] T MATERIAL BLOOD [address] COUNT 1 MELONIE WILHELM COMPLETE FT FT AUTO&AUTO [place] DIFRNTL WBC GONADOTRO [address] PIN 1 MELONIE WILHELM CHORIONIC FT FT [place] QUALITATI VE BASIC [address] ST [address] METABOLIC 1 MELONIE WILHELM PANEL FT FT CALCIUM [place] TOTAL THER [address] PROPH/DX 1 MELONIE WILHELM NJX EA FT FT SEQL IV [place] PUSH SBST/DRUG FAC HEPATIC [address] FUNCTION 1 MELONIE WILHELM PANEL FT FT [place] THERAPEUT [address] IC 1 MELONIE WILHELM INJECTION FT FT IV PUSH [place] EACH NEW DRUG THER [address] PROPH/DX 1 MELONIE WILHELM NJX IV FT FT PUSH [place] SINGLE/1S T SBST/DRUG INJECTION J1170 ST ST 1 MELONIE WILHELM HYDROMORP FT FT KM UP L[place] TO [address] IN TIME 1 MELONIE WILHELM FT FT [place] COLLECTIO [address] N VENOUS 1 MELONIE WILHELM BLOOD FT FT VENIPUNCT L[place] URE RADEX [address] HAND 1 MELONIE WILHELM MINIMUM 3 FT FT VIEWS [place] INJECTION J2405 ST ST 1 MELONIE WILHELM LULUETR FT FT ON HCL [place] PER 1 MG Encounters Encounter Start End Date Code Location Performer Type Date OFFICE 32792 [facility] N T VISIT NEUROLOGY 10 [facility]OUS [facility] - 6 6 N OUTPATIEN COMMUNTIY T HOSPITA OFFICE 43513 [facility] OUTPATIEN 6 6 Y OF T VISIT [place] 15 HOSPI MINUTES OFFICE 12357 MANUEL FRANCIS OUTPATIEN 6 6 GAR T [place] 30 CHIROPRAC MINUTES TIC CENTE OFFICE 72827 [facility]PATI[facility] 6 6 Y [facility] T [facility] [place] [facility] 6 6 N OUTPATIEN COMMUNTIY T HOSPITA EMERGENCY 35312 [facility] 6 6 N DEPARTMEN COMMUNTIY T VISIT HOSPITA HIGH/URGE NT SEVERITY [facility] FOOT & N PETEY T VISIT ANKLE CE 15 MINUTES OFFICE 44003 [facility]IL[facility] JANE OUTPATIEN 5 5 MEDICAL PEGGY T VISIT SERV 10 FOUNDATIO MINUTES [facility] 5 5 N [facility] 5 [facility] SELINA EMERGENCY 51155 [facility] 5 5 NEMO DEPARTMEN EMERGENCY T VISIT PHYS HIGH/URGE NT SEVERITY [facility] - 5 5 N OUTPATIEN COMMUNTIY T HOSPITA OFFICE 22910 [facility] BROWN OUTPATIEN 5 5 MEDICAL JEAN T VISIT SERV 15 FOUNDATIO MINUTES [facility] - 5 5 MELONIE OUTPATIEN SELINA T OFFICE 37754 AQUILINO MELGAR OUTPATIEN 5 5 N T VISIT NEUROLOGY 15 MINUTES [facility] - 5 5 RELIGIOUS OUTPATIEN HOSP T OFFICE 70146 [facility] RA[facility] CAR OUTPATIEN 5 5 NURSE T VISIT PRACTITIO 15 NER GR MINUTES HOSPITAL [facility] - 5 5 [facility] 5 5 N OUTPATIEN COMMUNTIY T HOSPITA OFFICE 20287 GILMER JANE OUTPATIEN 5 5 MEDICAL PEGGY T VISIT SERV 15 FOUNDATIO MINUTES [facility]OSPITAL [facility] - 5 5 [facility]ALTH [facility] 57292 [facility] 5 5 NEMO TOD VISIT EMERGENCY HIGH SERV SEVERITY& THREAT [facility] - 5 5 N OUTPATIEN COMMUNTIY T HOSPITA OFFICE 38891 GILMER JANE OUTPATIEN 5 5 MEDICAL PEGGY T VISIT SERV 15 FOUNDATIO MINUTES N OFFICE 54693 AQUILINO MELGAR OUTPATIEN 5 5 N T VISIT NEUROLOGY 15 MINUTES OFFICE 20838 [facility] OUTPATIEN 2 2 POINT T VISIT FAMILY 15 CARE, IN MINUTES EMERGENCY 24109 EMERGENCY HERFEL 2 2 CARE JARAD DEPARTMEN PHYS T VISIT [facility] SE[facility] EMERGENCY 18517 EMERGENCY RICHARDSO 2 2 CARE N THO DEPARTMEN PHYS T VISIT [facility]URGE NT SEVERITY EMERGENCY [address]8762 ST 2 2 MELONIE DEPARTMEN FT T VISIT [facility] SEVERITY EMERGENCY 25477 EMERGENCY HERFEL 2 2 CARE JARAD DEPARTMEN PHYS T VISIT [facility] - 2 2 MELONIE OUTPATIEN FT T [facility] 32714 EMERGENCY HERFEL 2 2 CARE JARAD DEPARTMEN PHYS T VISIT [facility] HIGH/URGE NT SEVERITY EMERGENCY 99557 ST 2 2 MELONIE DEPARTMEN FT T VISIT [facility] ST - 2 2 MELONIE OUTPATIEN FT T [facility] 72730 EMERGENCY G[facility] DEPT 2 2 CARE LENNOX VISIT PHYS HIGH [facility]THER[facility] SEVERITY& THREAT FUN EMERGENCY 58338 ST 2 2 MELONIEEVELINA NORWOODMEN FT T VISIT [facility] M[facility] OUTPATIEN FT T [facility] [id number] EMERGENCY LOVE TACO 2 2 CARE DEPARTMEN PHYS T VISIT [facility] - 2 2 M[facility] OUTPATIEN FT T [facility] [id number] ST 2 2 MELONIE NORWOODMEN FT T VISIT [facility] SE[facility] 87147 EMERGENCY CARMEN 2 2 CARE MAURY DEPARTMEN PHYS T VISIT [facility] - 2 2 [facility] OUTPATIEN T [facility]ICAL[facility] NTER EMERGENCY [id number] ST 2 2 [facility] DEPARTMEN T VISIT [facility]TER NT SEVERITY EMERGENCY 23781 ST 1 1 MELONIE DEPARTMEN FT T [facility]IT [facility] - 1 1 MELONIE OUTPATIEN FT T [facility] [id number] EMERGENCY VEST KEVON 1 1 CARE DEPARTMEN PHYS T VISIT [facility] H[facility]/URGE NT SEVERITY EMERGENCY [id number] EMERGENCY RICHARDSO 1 1 CARE N [facility] DEPARTMEN PHYS T [facility]IT [facility] SE[facility]
--- OUTSIDE RECORDS SUMMARY | 2017-07-16 06:23 | External Medical Summary Rpt | CCD ---
Author Author , LYNDA Organization LYNDA Address Unknown Phone [email or web address] Care Team Providers Care Minister Assistant Name Role Phone [facility] Unavailable Unavailable [facility] BROWN JEAN, BROWN Unavailable Unavailable JEAN [facility], Unavailable Unavailable [facility], Unavailable Unavailable [facility] RAFIQ CAR, RAFIQ CAR Unavailable Unavailable [place] [facility] MAYORGA RIM, MAYORGA RIM Unavailable Unavailable [facility], Unavailable Unavailable [facility] Unavailable Unavailable HOSPITA, [facility], Unavailable Unavailable [facility] STEFFANIE PECK Unavailable Unavailable LUCINDA FREDERICK Unavailable Unavailable [facility] Unavailable Unavailable CARE, [facility], IN HERFEL JARAD, HERFEL Unavailable Unavailable JARAD [facility] Unavailable Unavailable PRACTITIONER GR, [facility] Unavailable Unavailable [facility], [facility] LOVE TACO, [...] Unavailable Unavailable [facility], [facility] Unavailable Unavailable [facility] SERV, [facility] CARMEN MAURY, Unavailable Unavailable CARMEN MA[facility]Y [facility] Unavailable Unavailable [facility] Unavailable Unavailable [facility], [facility] Unavailable Unavailable PHYSICIANS, [facility] Unavailable Unavailable SELINA, [facility], [facility] Unavailable Unavailable [facility]ICAL [facility], [facility] Unavailable Unavailable [facility]ICAL [facility] Unavailable [place] [facility] OVIDIO LUND, OVIDIO LUND Unavailable Unavailable Purpose Continuity of Care Document - 04-11-2011 through 2016 Problems Code Diagnosis DOS Provider Status [id number] OBSTRUCTIVE 03-01-2016 [facility] SLEEP MEDICAL APNEA ADULT PEDIATRIC [id number] MIGRAINE 02-24-2016 [facility] W/AURA NOT NEUROLOGY INTRACT W/O STAT MIGRAINOSUS M797 FIBROMYALGI 02-24-2016 [facility] D34 BENIGN 12-08-2015 [facility] NEOPLASM [facility] THYROID [facility] GLAND E119 TYPE 2 12-08-2015 [facility] DIABETES [facility] MELLITUS HOSP WITHOUT COMPLICATIO NS I10 ESSENTIAL 12-08-2015 [facility] PRIMARY [facility] HYPERTENSIO HOSP N M542 CERVICALGIA 10-30-2015 [facility] HOSPI M546 PAIN IN 10-29-2015 [facility] SPINE [facility]ENT[facility] M6240 CONTRACTURE 10-29-2015 [place] OF MUSCLE [facility] UNSPECIFIED C CENTE SITE H6122 IMPACTED 10-13-2015 [facility] LEFT EAR HOSPI R42 DIZZINESS 10-13-2015 [facility] GIDDINESS HOSPI R0602 SHORTNESS 10-11-2015 [facility] OF BREATH COMMUNTIY HOSPITA R0789 OTHER CHEST 10-11-2015 [facility] PAIN COMMUNTIY HOSPITA R110 NAUSEA 10-11-2015 [facility] COMM[facility] HOSPITA R51 HEADACHE 10-11-2015 [facility] Z8614 PERSONAL HX 10-11-2015 [facility] RSIST STAPH INFECTION Z9884 BARIATRIC 10-11-2015 [facility] SURGERY COMMUNTIY STATUS HOSPITA M109 GOUT 09-11-2015 [place] UNSPECIFIED FOOT & ANKLE CE M1990 UNSPECIFIED 09-11-2015 [place] FOOT & OSTEOARTHRI ANKLE CE TIS UNSPECIFIED SITE R08723 SPONTANEOUS 09-11-2015 [place] RUPTURE FOOT & FLEXOR ANKLE CE TENDONS UNS LOWER LEG M7660 ACHILLES 09-11-2015 [place] TENDINITIS FOOT & UNSPECIFIED ANKLE CE LEG A630 ANOGENITAL 09-02-2015 [facility] [employer] [facility] [id number] UNSPECIFIED 08-26-2015 [facility] INJURY COMMUNTIY LEFT ANKLE HOSPITA INITIAL ENCOUNTER Z23 ENCOUNTER 08-18-2015 . FOR MELONIE IMMUNIZATIO SELINA N N843 POLYP OF 08-14-2015 [facility] V22491 PAIN IN 08-07-2015 [facility] [place] LEFT [facility] RADIOLOGY B25946 PAIN IN 08-07-2015 [facility] LEFT LEG N EMERGENCY PHYS T40658 PAIN IN 08-07-2015 [facility] [place] LEFT FOOT RADI[facility] Z43656 OTHER LONG 07-28-2015 [facility] TERM SERV CURRENT [facility] DRUG THERAPY E6601 MORBID 07-22-2015 SEVERE MELONIE OBESITY DUE PHYSICIANS TO EXCESS CALORIES Z6843 BODY MASS 07-22-2015 INDEX BMI MELONIE 50-59.9 PHYSICIANS ADULT E109 TYPE 1 07-15-2015 . DIABETES MELONIE MELLITUS SELINA WITHOUT COMPLICATIO NS L500 ALLERGIC 07-15-2015 . URTICARIA MELONIE SELINA Q98159 ENCOUNTER 07-15-2015 . FOR OTHER MELONIE PREPROCEDUR SELINA AL EXAMINATION 02095 MIGRAINE 06-26-2015 [facility] W/AURA W/O NEUROLOGY INTRACT W/O STATUS MIGRNOSUS 7291 UNSPECIFIED 06-26-2015 [facility] MYALGIA NEUROLOGY AND MYOSITIS 27860 DIAB W/O 06-25-2015 [facility] COMP TYPE [facility] II/UNS NOT HOSP STATED UNCNTRL 6825 CELLULITIS 06-02-2015 [facility] NURSE AND ABSCESS PRACTITIONE OF BUTTOCK R GR 2189 LEIOMYOMA 05-25-2015 [facility] OF UTERUS, SERV UNSPECIFIED FOUNDATION 52256 MORBID 05-25-2015 [facility] OBESITY COMMUNTIY HOSPITA 4019 UNSPECIFIED 05-25-2015 [facility] ESSENTIAL COMMUNTIY HYPERTENSIO HOSPITA N 72345 ASTHMA, 05-25-2015 [facility] UNSPECIFIED COMMUNTIY , HOSPITA UNSPECIFIED STATUS 99884 ENDOMETRIAL 05-25-2015 [facility] HYPERPLASIA [facility]OUNDATION UNSPECIFIED 6253 DYSMENORRHE 05-25-2015 [facility] 6262 EXCESSIVE 05-25-2015 [facility]QUENT SERV [facility] MENSTRUATIO N 6271 POSTMENOPAU 05-25-2015 [facility] CRISTIN COMMUNTIY BLEEDING HOSPITA V8544 BODY MASS 05-25-2015 [facility] INDEX COMMUNTIY 60.0-69.9 HOSPITA ADULT V7283 OTHER 05-19-2015 [facility] SPECIFIED COMMUNTIY PRE-OPERATI HOSPITA VE EXAMINATION 31471 FEVER 05-18-2015 [facility] UNSPECIFIED N EMERGENCY SERV 3393 DRUG 03-20-2015 [facility] INDUCED NEUROLOGY HEADACHE NOT ELSEWHERE CLASSIFIED 0794 HUMAN 03-17-2015 [facility] VIRUS IN CCE & UNS SITE 4660 ACUTE 09-04-2012 [facility] [place] 6828 CELLULITIS 07-15-2012 EMERGENCY AND ABSCESS CARE PHYS OF OTHER [facility]THERN SPECIFIED SITE 6823 CELLULITIS 05-22-2012 EMERGENCY AND ABSCESS CARE PHYS OF UPPER NORTHERN ARM AND FOREARM 6826 CELLULITIS 05-02-2012 ST AND ABSCESS MELONIE OF LEG FT LEXUS EXCEPT FOOT 58956 UNSPECIFIED 05-02-2012 ST SLEEP MELONIE APNEA FT [...] OF VULVA MELONIE AND VAGINA FT LEXUS 95739 UNSPECIFIED 04-16-2012 ST VAGINITIS MELONIE AND FT LEXUS VULVOVAGINI TIS 88097 UNSPECIFIED 03-23-2012 ST MELONIE PYELONEPHRI FT LEXUS TIS 49567 ABDOMINAL 03-23-2012 ST PAIN RIGHT MELONIE UPPER [...] OF [place] [address] ABDOMINAL 09-16-2011 ST TENDERNESS MELONIE RIGHT UPPER FT LEXUS QUADRANT 13268 ABDOMINAL 09-16-2011 ST TENDERNESS MELONIE RIGHT LOWER FT LEXUS QUADRANT 9150 ABRASION/FR 09-16-2011 ST ICTION BURN MELONIE FINGER W/O FT LEXUS MENTION INF 9222 CONTUSION 09-16-2011 ST OF MELONIE ABDOMINAL FT LEXUS WALL 34006 CONTUSION 09-16-2011 ST OF HAND MELONIE FT LEXUS 10138 UNSPECIFIED 04-27-2011 EMERGENCY SITE OF CARE PHYS ANKLE [facility] SPRAIN AND STRAIN 21894 CONTUSION 04-27-2011 EMERGENCY OF ANKLE CARE PHYS [facility]THER[facility] V1588 PERSONAL 04-27-2011 EMERGENCY HISTORY OF CARE PHYS FALL [facility] 68615 ABDOMINAL 04-11-2011 EMERGENCY PAIN, CARE PHYS UNSPECIFIED [...] MEDICAL MEDICAL POSITIVE AIRWAY PRESSURE DEVICE LIPID 26241 [facility] PANEL 6 [facility] COMPREHEN 21503 [facility] SIVE 6 [facility] METABOLIC HOSP HOSP PANEL URNLS DIP 88821 [facility] 6 [facility] STICK/TAB HOSP HOSP LET REAGENT AUTO MICROSCOP Y HEMOGLOBI 69451 [facility] N 6 [facility] GLYCOSYLA HOSP HOSP DONOVAN A1C COLLECTIO 50544 [facility] N VENOUS 6 [facility] BLOOD HOSP HOSP VENIPUNCT URE TUBING A7037 [facility] USED WITH 6 MEDICAL MEDICAL POSITIVE AIRWAY PRESSURE DEVICE RADEX 22473 [facility] SPINE 6 N N CERVICAL COMMUNTIY COMMUNTIY 4 OR 5 HOSPITA HOSPITA VIEWS CHIROPRAC 63759 MANUEL FRANCIS TIC 6 GAR MANIPULAT CHIROPRAC [place] TIC CENTE SPINAL 1-2 REGIONS MANUAL 59359 [facility] [place] THERAPY 6 TQS 1/> CHIROPRAC CH[facility] REGIONS TIC CENTE TIC CENTE EACH 15 MINUTES RADEX 36287 [place] IRWINANA SPINE 6 CERVICAL CHIROPRAC CHIROPRAC 2 OR 3 TIC CENTE TIC CENTE VIEWS RADEX 52756 MANUEL FRANCIS SPINE 6 GAR LUMBOSACR CHIROPRAC AL 2/3 TIC CENTE VIEWS ECG 13162 [facility] ROUTINE 6 N N ECG COMMUNTIY COMMUNTIY W/LEAST HOSPITA HOSPITA 12 [facility] TRCG ONLY W/O I&R THER 09941 [facility] PROPH/DX 6 N N NJX IV COMMUNTIY COMMUNTIY PUSH HOSPITA HOSPITA SINGLE/1S T SBST/DRUG COLLECTIO 80678 [facility] N VENOUS 6 N N BLOOD COMMUNTIY COMMUNTIY VENIPUN[place] [address] [facility] TROPONIN 6 N N QUANTITAT COMMUNTIY [place] [address] [facility] HEAD/BRAI 6 N N N W/O COMMUNTIY COMMUNTIY CONTRAST HOSPITA HOSPITA MATERIAL RADIOLOGI 21729 [facility] C 6 N N EXAMINATI COMMUNTIY COMMUNTIY ON CHEST HOSPITA HOSPITA SINGLE VIEW FRONTAL INJECTION J2405 [facility] 6 N N ONDANSETR COMMUNTIY COMMUNTIY ON HCL HOSPITA HOSPITA PER 1 MG COMPREHEN 30995 [facility] SIVE 6 N N METABOLIC COMMUNTIY COMMUNTIY PANEL HOSPITA HOSPITA NONCOVERE A9270 [facility] D ITEM OR 6 N N SERVICE COMMUNTIY COMMUNTIY HOSPITA HOSPITA BLOOD 94130 [facility] COUNT 6 N N COMPLETE COMMUNTIY COMMUNTIY AUTO&AUTO HOSPITA HOSPITA DIFRNTL WBC TUBING A7037 [facility] USED WITH 5 MEDICAL MEDICAL POSITIVE AIRWAY PRESSURE DEVICE FACE MASK A7031 [facility] 5 MEDICAL MEDICAL INTERFACE REPLCMT FULL FACE MASK EA FULL FACE A7030 [facility] MASK 5 MEDICAL MEDICAL USED W/POS ARWAY PRESS DEVICE EA FILTER A7038 [facility] DISPBL 5 MEDICAL MEDICAL USED W/POS ARWAY PRESSURE DEVICE FILTER A7039 [facility] NON 5 MEDICAL MEDICAL DISPBL USED W/POS ARWAY PRESS DEVICE HEADGEAR A7035 [facility] USED 5 MEDICAL MEDICAL W/POSITIV E AIRWAY PRESSURE DEVICE RADEX 89595 [facility] ANKLE 5 N N COMPLETE COMMUNTIY COMMUNTIY MINIMUM 3 HOSPITA HOSPITA VIEWS ADMINISTR G0008 [facility] OF 5 MELONIE MELONIE INFLUENZA SELINA SELINA VIRUS VACCINE IIV4 VACC 07529 [facility] 5 MELONIE MELONIE FREE 0.5 SELINA SELINA ML FOR IM USE HOSPITAL 64405 [facility]OGI DISCHARGE [facility]IC[facility] T 30 S MIN/< BIOPSY 74239 GILMER JANE VULVA/PER 5 MEDICAL PEGGY INEUM 1 SERV LESION FOUNDATIO SPX N LEVEL III 84144 [facility] SURG 5 [facility] PATHOLOGY GROSS&SHERRY ROSCOPIC EXAM DESTRUCTI 42419 GILMER JANE ON BENIGN 5 MEDICAL PEGGY LESIONS SERV UP TO 14 FOUNDATIO N INJ J2930 [facility] METHYLPRD 5 N N NISOLONE COMMUNTIY COMMUNTIY SODIUM HOSPITA HOSPITA SUCCNAT TO 125 MG THERAPEUT 13307 [facility] IC 5 N N PROPHYLAC COMMUNTIY COMMUNTIY TIC/DX HOSPITA HOSPITA INJECTION SUBQ/IM LAPS 42724 [facility] MAR GSTRC 5 MELONIE RSTRICTIV PX PHYSICIAN LONGITUDI S NAL GASTRECTO MY ANTIBODY [address] [facility] SCREEN 5 MELONIE WILHELM RBC EACH SELINA MARKS SERUM TECHNIQUE BLOOD 25273 [facility] TYPING 5 MELONIEEVELINA WILHELM SEROLOGIC SELINA SELINA ABO BLOOD 08[address] [facility] COUNT 5 MELONIEEVELINA WILHELM COMPLETE SELINA MARKS AUTO&AUTO DIFRNTL WBC BLOOD 66842 [facility] TYPING 5 MELONIEEVELINA WILHELM SEROLOGIC SELINA MARKS RH (D) ECG 99304 [facility] ROUTINE 5 MELONIE WILHELM ECG SELINA SELINA W/LEAST 12 LDS TRCG ONLY W/O I&R COMPREHEN 35743 [facility] SIVE 5 MELONIE WILHELM METABOLIC SELINA SELINA PANEL INJECTION J1885 [facility] 5 N N KETOROLAC COMMUNTIY COMMUNTIY HOSPITA HOSPITA TROMETHAM INE PER 15 MG INJECTION J2704 [facility] PROPOFOL 5 N N 10 MG COMMUNTIY COMMUNTIY HOSPITA HOSPITA INJECTION J3010 [facility] FENTANYL 5 N N CITRATE COMMUNTIY COMMUNTIY 0.1 MG HOSPITA HOSPITA INJECTION J2250 [facility] 5 N N MIDAZOLAM COMMUNTIY COMMUNTIY HCL PER HOSPITA HOSPITA 1 MG INJECTION J1100 [facility] 5 N N DEXAMETHO COMMUNTIY COMMUNTIY SONE HOSPITA HOSPITA SODIUM PHOSPHATE 1 MG HYSTEROSC 10198 [facility] OPY 5 N N ENDOMETRI COMMUNTIY COMMUNTIY AL HOSPITA HOSPITA ABLATION INJECTION J2001 [facility] 5 N N LIDOCAINE COMMUNTIY COMMUNTIY HCL HOSPITA HOSPITA INTRAVENO US INFUS 10 MG RINGERS J7120 [facility] LACTATE 5 N N INFUSION COMMUNTIY COMMUNTIY UP TO HOSPITA HOSPITA [address] [place] [address] [facility] SURG 5 N N PATHOLOGY COMMUNTIY COMMUNTIY HOSPITA HOSPITA GROSS&SHERRY ROSCOPIC EXAM GLUC BLD 19600 [facility] GLUC MNTR 5 N N DEV COMMUNTIY COMMUNTIY CLEARED HOSPITA HOSPITA FDA SPEC HOME USE CULTURE 45145 [facility] BACTERIAL 5 [facility] BLOOD [facility] AEROBIC W/ID ISOLATES BLOOD 14581 [facility] COUNT 5 [facility] COMPLETE [facility] AUTO&[place] [address] [facility] LACTATE 5 [facility] THERAPEUT 08432 [facility] IC 5 [facility] INJECTION [facility] [place] [place] [address] [facility] INFUSION [address] [place] [address] THERAPY/P [facility] ROPHYLAXI S /DX 1ST TO 1 HR THER 40517 [facility] PROPH/DX [address] [place] [address] NJX EA [facility] SEQL [place] PUSH SBST/[place] [address] [facility] INFUSION 5 [facility] PROPHYLAX IS/DX EA HOUR COMPREHEN 06888 [facility] SIVE 5 [facility] METABOLIC [facility] [place] [address] [facility] TRANSVAGI 5 N N NAL COMMUNTIY COMMUNTIY HOSPITA HOSPITA NEBULIZER E0570 MED-CARE MED-CARE WITH 5 DIABETIC DIABETIC COMPRESSO & MEDICAL & MEDICAL R IADNA 88872 [facility] HUMAN [facility] VIRUS HIGH-RISK TYPES CYTP C/V 69979 [facility] AUTO THIN [facility] LYR [place] [address] [facility] SURG [facility] PATHOLOGY GROSS&SHERRY ROSCOPIC EXAM INCISION 62370 EMERGENCY HERFEL & 2 CARE JARAD DRAINAGE PHYS ABSCESS [facility]THERN COMPLICAT ED/MULTIP LE INCISION 74739 [facility] & 2 MELONIE MELONIE DRAINAGE FT FT ABSCESS LEXUS LEXUS COMPLICAT ED/MULTIP LE SUSCEPTIB 33756 [facility] LTY STDY 2 MELONIE MELONIE ANTIMICRB FT FT IAL [place] MICRO/AGA R DILUTJ SMR PRIM 95747 [facility] SRC 2 MELONIE MELONIE GRAM/GIEM FT FT SA STAIN [place] BCT FUNGI/NOAH L IM ADM 49784 [facility] PRQ ID 2 MELONIEEVELINA STRATTONBETH SUBQ/IM FT FT NJXS 1 [place] VACCINE TDAP 94729 [facility] VACCINE 7 2 MELONIE SALASZABETH YRS/> IM FT FT [place] CUL BACT 24285 [facility] XCPT 2 MELONIE SALASZABETH URINE FT FT BLOOD/STO LEUXS ALBERTS OL AEROBIC ISOL CUL BACT 11144 [facility] AEROBIC 2 MELONIE MELONIE ADDL FT FT METHS [place] DEFINITIV E EA ISOL URNLS DIP 58432 [facility] 2 MELONIE SALASZABETH STICK/TAB FT FT LET [place] REAGENT AUTO MICROSCOP Y GONADOTRO 41168 [facility] PIN 2 MELONIE MELONIE CHORIONIC FT FT [place] QUALITATI VE GLUCOSE 84584 [facility] BLOOD 2 MELONIE MELONIE REAGENT FT FT STRIP [place] IADNA 29067 [facility] NEISSERIA 2 MELONIE MELONIE FT FT GONORRHOE [place] AE AMPLIFIED PROBE TQ SMR PRIM 11288 [facility] SRC WET 2 MELONIE MELONIE MOUNT FT FT NFCT AGT [place] IADNA 24863 [facility] CHLAMYDIA 2 MELONIE MELONIE FT FT TRACHOMAT [place] IS AMPLIFIED PROBE TQ THERAPEUT [address] IC 2 MELONIE MELONIE PROPHYLAC FT FT TIC/DX [place] INJECTION SUBQ/IM INJECTION J1885 ST 2 MELONIE MELONIE KETOROLAC FT FT [place] TROMETHAM INE PER 15 MG BASIC 43821 [facility] METABOLIC 2 MELONIE MELONIE PANEL FT FT CALCIUM [place] TOTAL INJECTION J0696 ST 2 MELONIE MELONIE CEFTRIAXO FT FT NE SODIUM LEXUS LEXUS PER 250 MG HEPATIC 75020 [facility] FUNCTION 2 MELONIE MELONIE PANEL FT FT [place] COLLECTIO 24491 [facility] N VENOUS 2 MELONIE MELONIE BLOOD FT FT VENIPUN[place] [address] [facility] AMYLASE 2 MELONIE MELONIE FT FT [place] GONADOTRO 39475 [facility] PIN 2 MELONIE SALASZABETH CHORIONIC FT FT [place] QUALITATI VE BLOOD 18796 [facility] COUNT 2 MELONIE MELONIE COMPLETE FT FT AUTO&AUTO [place] DIFRNTL WBC URNLS DIP 52919 ST 2 MELONIE MELONIE STICK/TAB FT FT LET [place] REAGENT AUTO MICROSCOP Y CULTURE 01649 [facility] BACTERIAL 2 MELONIE MELONIE FT FT QUANTTATI [place] VE COLONY COUNT URINE CULTURE 37822 [facility] BCT 2 MELONIE MELONIE ISOL&PRSM FT FT PTV ID [place] ISOLATE EA URINE CULTURE 37538 [facility] TYPING 2 MELONIE MELONIE IMMUNOLOG FT FT IC L[place] OTH/[place] [address] [facility] LIPASE 2 MELONIE [place] [address] [facility] ABDOMEN & 2 MELONIE MELONIE PELVIS FT FT W/O [place] CONTRAST MATERIAL THERAPEUT 62995 [facility] IC 2 MELONIE MELONIE PROPHYLAC FT FT TIC/DX [place] INJECTION SUBQ/IM RADEX [address] SHOULDER 2 MELONIECHANTE WILHELM COMPLETE FT FT MINIMUM 2 LEXUS LEXUS VIEWS INJECTION J2360 ST ST 2 MELONIE MELONIE ORPHENADR FT FT INE LEXUS LEXUS CITRATE UP TO [address] METABOLIC 2 MELONIE MELONIE PANEL CALCIUM MEDICALCE MEDICALCE TOTAL NTER NTER RADIOLOGI [address] ST ST C EXAM 2 MELONIE MELONIE CHEST 2 VIEWS MEDICALCE MEDICALCE FRONTAL&L NTER NTER ATERAL ECG [address] ROUTINE 2 MELONIE MELONIE ECG W/LEAST MEDICALCE MEDICALCE 12 LDS NTER NTER TRCG ONLY W/O I&R NATRIURET [address] IC 2 MELONIE MELONIE PEPTIDE [place] [address] TROPONIN 2 MELONIEEVELINA WILHELM QUANTITAT [facility]ICAL[facility] MEDICALCE NTER NTER BLOOD [address] COUNT 2 MELONIECHANTE WINCHESTERTH COMPLETE AUTO&AUTO MEDICALCE MEDICALCE DIFRNTL NTER NTER WBC COLLECTIO [address] N VENOUS 2 MELONIE MELONIE BLOOD VENIPUNCT MEDICALCE MEDICALCE URE NTER NTER INJECTION J1170 ST ST 1 MELONIE WILHELM HYDROMORP FT FT KM UP LEXUS [place]EX[place] [address] [place] [address] ABDOMEN & 1 MELONIE WINCHESTERTH PELVIS FT FT W/CONTRAS LEXUS LEXUS T MATERIAL LOCM Q9967 ST ST 300-399 1 MELONIE WILHELM MG/ML FT FT IODINE LEXUS LEXUS CONCENTRA TION PER ML INJECTION J2405 ST ST 1 MELONIE WILHELM ONDANSETR FT FT ON HCL LEXUS LEXUS PER [address] 1 MELONIEEVELINA WILHELM ONDANSETR FT FT ON HCL LEXUS LEXUS PER [address] PROPH/DX 1 MELONIE WILHELM NJX EA FT FT SEQL IV LEXUS LEXUS PUSH SBST/DRUG FAC BASIC [address] METABOLIC 1 MELONIE STRATTONBETH PANEL FT FT CALCIUM L[place] TOTAL HEPATIC [address] FUNCTION 1 MELONIE MELONIE PANEL FT FT [place] THERAPEUT [address] IC 1 MELONIE WILHELM INJECTION FT FT IV PUSH [place] EACH NEW DRUG INJECTION J1170 ST ST 1 MELONIEEVELINA WILHELM HYDROMORP FT FT KM UP [place] TO [address] IN TIME 1 MELONIE MELONIE FT FT [facility] RADEX [address] HAND 1 MELONIE WILHELM MINIMUM 3 FT FT VIEWS [facility] THER [address] PROPH/DX 1 MELONIE WILHELM NJX IV FT FT PUSH [facility] SINGLE/1S T SBST/DRUG COLLECTIO [address] N VENOUS 1 MELONIE WILHELM BLOOD FT FT VENIPUNCT [facility] URE BLOOD [address] COUNT 1 MELONIE WILHELM COMPLETE FT FT AUTO&AUTO [facility] DIFRNTL WBC GONADOTRO [address] PIN 1 MELONIE WILHELM CHORIONIC FT FT [facility] QUALITATI VE Encounters Encounter Start End Date Code Location Performer Type Date OFFICE 88923 [facility] TALIA OUTPATIEN 6 6 N T VISIT NEUROLOGY 10 MINUTES [facility] T OFFICE 47787 [facility] OUT[facility] 6 6 Y OF T VISIT [place] 15 H[facility]PI [facility] - 6 6 N OUTPATIEN COMMUNTIY T HOSPITA OFFICE 71302 MANUEL FRANCIS OUTPATIEN 6 6 GAR T NEW 30 CHIROPRAC MINUTES TIC CENTE OFFICE 73548 [facility] CAR OUTPATIEN 6 6 Y OF T VISIT [facility] 15 HOSPI MINUTES EMERGENCY 79208 [facility] 6 6 N DEPARTMEN COMMUNTIY T VISIT HOSPITA HIGH/URGE NT SEVERITY HOSPITAL [facility] - 6 6 N OUTPATIEN COMMUNTIY T HOSPITA OFFICE 21210 [facility] OUTPATIEN 5 5 FOOT & N PETEY T VISIT ANKLE CE 15 MINUTES OFFICE 47861 [facility] OUTPATIEN 5 5 MEDICAL PEGGY T VISIT SERV 10 FOUNDATIO MINUTES [facility] - 5 5 N OUTPATIEN COMMUNTIY T [facility] 5 5 [facility] 5 5 N OUTPATIEN COMMUNTIY T HOSPITA EMERGENCY 29249 [facility] 5 5 NEMO DEPARTMEN EMERGENCY T VISIT PHYS HIGH/URGE NT SEVERITY OFFICE 99652 [facility]OWN OUTPATIEN 5 5 MEDICAL JEAN T VISIT SERV 15 FOUNDATIO MINUTES [facility] - 5 5 [facility] T OFFICE 37757 [facility] OUTPATIEN 5 5 N T VISIT NEUROLOGY 15 [facility] - 5 5 [facility] OUTPATIEN HOSP T OFFICE 11748 [facility] OUTPATIEN 5 5 NURSE T VISIT PRACTITIO [address] [facility] - 5 5 N OUTPATIEN COMMUNTIY T [facility] - 5 5 N OUTPATIEN COMMUNTIY T HOSPITA OFFICE 97604 [facility] JANE OUTPATIEN 5 5 MEDICAL PEGGY T VISIT SERV 15 FOUNDATIO MINUTES [facility] TA[facility] - 5 5 HEALTH OUTPATIEN ABDALLA T EMERGENCY 22309 [facility] DEPT 5 5 NEMO TOD VISIT EMERGENCY HIGH SERV SEVERITY& THREAT FUN HOSPITAL [facility] - 5 5 N OUTPATIEN COMMUNTIY T HOSPITA OFFICE 96803 [facility] JANE OUTPATIEN 5 5 MEDICAL PEGGY T VISIT SERV 15 FOUNDATIO MINUTES N OFFICE 19582 [facility] LAUREN TALIA OUTPATIEN 5 5 N T VISIT NEUROLOGY 15 MINUTES OFFICE 98842 [facility] OUTPATIEN 2 2 POINT T VISIT FAMILY 15 CARE, IN MINUTES EMERGENCY 63110 EMERGENCY HERFEL 2 2 CARE JARAD DEPARTMEN PHYS T VISIT [facility] SEVERITY EMERGENCY 27925 EMERGENCY RICHARDSO 2 2 CARE N CHAN[place] DEPARTMEN PHYS T VISIT [facility] HIGH/URGE NT SEVERITY EMERGENCY 94650 ST 2 2 MELONIE DEPARTMEN FT T VISIT [facility] MODERATE SEVERITY EMERGENCY 65734 EMERGENCY HERFEL 2 2 CARE JARAD DEPARTMEN PHYS T VISIT [facility] HIGH/URGE NT SEVERITY [facility]PITAL ST - 2 2 MELONIE OUTPATIEN FT T [facility] EMERGENCY 34955 ST 2 2 MELONIE DEPARTMEN FT T VISIT [facility] MODERATE SEVERITY [facility] ST - 2 2 MELONIE OUTPATIEN FT T [facility] EMERGENCY 60933 EMERGENCY HERFEL 2 2 CARE JARAD DEPARTMEN PHYS T VISIT [facility] HIGH/URGE NT SEVERITY EMERGENCY 21321 ST 2 2 MELONIE DEPARTMEN FT T VISIT [facility] HIGH/URGE NT SEVERITY [facility]PITAL ST - 2 2 MELONIE OUTPATIEN FT T [facility] EMERGENCY 23781 EMERGENCY GAUTRAUD DEPT 2 2 CARE LENNOX VISIT PHYS HIGH [facility] SEVERITY& THREAT FUNJ EMERGENCY 30182 EMERGENCY LOVE TACO 2 2 CARE DEPARTMEN PHYS T VISIT [facility] HIGH/URGE NT SEVERITY EMERGENCY [id number] EMERGENCY CARMEN 2 2 CARE MAURY DEPARTMEN PHYS T VISIT [facility] HIGH/URGE NT SEVERITY [facility] - 2 2 [place] OUTPATIEN FT T [place] EMERGENCY [id number] 2 2 MELONIE DEPARTMEN FT T VISIT [facility] - 2 2 MELONIE OUTPATIEN T MEDICALCE NTER EMERGENCY [address] ST 2 2 MELONIE DEPARTMEN T VISIT [facility] HIGH/URGE NTER NT SEVERITY EMERGENCY 70685 ST 1 1 MELONIE DEPARTMEN FT T VISIT [facility] HIGH/URGE NT SEVERITY [facility] ST - 1 1 MELONIE OUTPATIEN FT T [place] EMERGENCY 79520 EMERGENCY [facility] 1 1 CARE DEPARTMEN PHYS T VISIT [facility] HIGH/URGE NT SEVERITY EMERGENCY 09647 EMERGENCY [place]O 1 1 CARE N THO DEPARTMEN PHYS T VISIT [facility] HIGH/URGE NT SEVERITY
--- OUTSIDE RECORDS SUMMARY | 2017-07-16 06:23 | External Medical Summary Rpt | CCD ---
Author Author , LYNDA Organization [facility] Address Unknown Phone [email or web address] Immunization Name Date Rout CVX Reac Dose [...]
--- OUTSIDE RECORDS SUMMARY | 2017-07-16 06:23 | External Medical Summary Rpt | CCD ---
Author Author , LYNDA Organization [facility] Address Unknown Phone [email or web address] Immunization Name Date Rout CVX Reac Dose [...]
--- OUTSIDE RECORDS SUMMARY | 2017-07-16 06:23 | External Medical Summary Rpt | CCD ---
Author Author , LYNDA Organization LYNDA Address Unknown Phone [email or web address] Care Team Providers Care Blow Up Operator Name Role Phone [facility] Unavailable Unavailable [facility] BROWN JEAN, BROWN Unavailable Unavailable JEAN [facility], Unavailable Unavailable [facility], Unavailable Unavailable [facility] RAFIQ CAR, RAFIQ CAR Unavailable Unavailable [place] [facility] MAYORGA RIM, MAYORGA RIM Unavailable Unavailable [facility] [place], Unavailable Unavailable [facility] Unavailable Unavailable HOSPITA, [facility], Unavailable Unavailable [facility] STEFFANIE PECK Unavailable Unavailable LUCINDA FREDERICK Unavailable Unavailable [facility] Un[facility], [facility] HERFEL JARAD, HERFEL Unavailable Unavailable JARAD [facility] Unavailable Unavailable PRACTITIONER GR, [facility] & Unavailable Unavailable [facility], [facility] LOVE TACO, LOVE [...] Unavailable Unavailable [facility], [facility] Unavailable Unavailable [facility], [facility] CARMEN MAURY, Unavailable Unavailable [facility] Unavailable [facility]available [facility] Unavailable Unavailable [facility], [facility] Unavailable Unavailable PHYSICIANS, [facility] Unavailable Unavailable SELINA, [facility], [facility] Unavailable Unavailable MEDICAL [facility], [facility] Unavailable Unavailable [facility]ICAL [facility] Unavailable [facility] OVIDIO LUND, OVIDIO LUND Unavailable Unavailable Purpose Continuity of Care Document - 04-11-2011 through 2016 Problems Code Diagnosis DOS Provider Status [id number] OBSTRUCTIVE 03-01-2016 [facility] SLEEP MEDICAL APNEA ADULT PEDIATRIC [id number] MIGRAINE 02-24-2016 [facility] W/[facility]UR[facility] NOT NEUROLOGY INTRACT W/O STAT MIGRAINOSUS M797 FIBROMYALGI 02-24-2016 [facility] D34 BENIGN 12-08-2015 [facility] NEOPLASM OF [facility] THYROID HOSP GLAND E119 TYPE 2 12-08-2015 [facility] DIABETES [facility] MELLITUS HOSP WITHOUT COMPLICATIO NS I10 ESSENTIAL 12-08-2015 [facility] PRIMARY [facility] HYPERTENSIO HOSP N M542 CERVICALGIA 10-30-2015 [facility] HOSPI M546 PAIN IN 10-29-2015 [facility] [facility] SPINE [facility]ENT[facility] M6240 CONTRACTURE 10-29-2015 [place] OF MUSCLE [facility] UNSPECIFIED C CENTE SITE H6122 IMPACTED 10-13-2015 [facility] LEFT EAR HOSPI R42 DIZZINESS 10-13-2015 [facility] GIDDINESS HOSPI R0602 SHORTNESS 10-11-2015 [facility] OF BREATH COMMUNTIY HOSPITA R0789 OTHER CHEST 10-11-2015 [facility] PAIN [facility]TI[facility] HOSPITA R110 NAUSEA 10-11-2015 [facility] R51 HEADACHE 10-11-2015 [facility] Z8614 PERSONAL HX 10-11-2015 [facility] RSIST STAPH INFECTION Z9884 BARIATRIC 10-11-2015 [facility] SURGERY COMMUNTIY STATUS HOSPITA M109 GOUT 09-11-2015 [facility] UNSPECIFIED FOOT & ANKLE CE M1990 UNSPECIFIED 09-11-2015 [facility] FOOT & OSTEOARTHRI ANKLE CE TIS UNSPECIFIED SITE I85500 SPONTANEOUS 09-11-2015 [facility] RUPTURE FOOT & FLEXOR ANKLE CE TENDONS UNS LOWER LEG M7660 ACHILLES 09-11-2015 [facility] TENDINITIS FOOT & UNSPECIFIED ANKLE CE LEG A630 ANOGENITAL 09-02-2015 [facility] [id number] UNSPECIFIED 08-26-2015 [facility] INJURY COMMUNTIY LEFT ANKLE HOSPITA INITIAL ENCOUNTER Z23 ENCOUNTER 08-18-2015 . FOR MELONIE IMMUNIZATIO SELINA N N843 POLYP OF 08-14-2015 [facility] I29187 PAIN IN 08-07-2015 [facility]KLE [facility]OLOG[facility] K91704 PAIN IN 08-07-2015 [facility] LEFT LEG N EMERGENCY PHYS M91677 PAIN IN 08-07-2015 [facility] LEFT FOOT [facility] J46984 OTHER LONG 07-28-2015 [facility] CURRENT [facility] DRUG THERAPY E6601 MORBID 07-22-2015 SEVERE MELONIE OBESITY DUE PHYSICIANS TO EXCESS CALORIES Z6843 BODY MASS 07-22-2015 INDEX BMI MELONIE 50-59.9 PHYSICIANS ADULT E109 TYPE 1 07-15-2015 . DIABETES MELONIE MELLITUS SELINA WITHOUT COMPLICATIO NS L500 ALLERGIC 07-15-2015 . URTICARIA MELONIE SELINA I61544 ENCOUNTER 07-15-2015 . FOR OTHER MELONIE PREPROCEDUR SELINA AL EXAMINATION 18963 MIGRAINE 06-26-2015 [facility] W[facility] W/O NEUROLOGY INTRACT W/O STATUS MIGRNOSUS 7291 UNSPECIFIED 06-26-2015 [facility] MYALGIA NEUROLOGY AND MYOSITIS 27205 DIAB W/O 06-25-2015 [facility] COMP TYPE CONGREGATIONAL II/UNS NOT HOSP STATED UNCNTRL 6825 CELLULITIS 06-02-2015 [facility] NURSE AND ABSCESS PRACTITIONE OF BUTTOCK R GR 2189 LEIOMYOMA 05-25-2015 [facility] UTERUS, SERV UNSPECIFIED FOUNDATION 45503 MORBID 05-25-2015 [facility] OBESITY COMMUNTIY HOSPITA 4019 UNSPECIFIED 05-25-2015 [facility] ESSENTIAL COMMUNTIY HYPERTENSIO HOSPITA N 63413 ASTHMA, 05-25-2015 [facility] UNSPECIFIED COMMUNTIY , HOSPITA UNSPECIFIED STATUS 87993 ENDOMETRIAL 05-25-2015 [facility] HYPERPLASIA [facility] UNSPECIFIED 6253 DYSMENORRHE 05-25-2015 [facility] 6262 EXCESSIVE 05-25-2015 [facility]REQUENT SERV [facility] MENSTRUATIO N 6271 POSTMENOPAU 05-25-2015 [facility] CRISTIN COMMUNTIY BLEEDING HOSPITA V8544 BODY MASS 05-25-2015 [facility] INDEX COMMUNTIY 60.0-69.9 HOSPITA ADULT V7283 OTHER 05-19-2015 [facility] SPECIFIED COMMUNTIY PRE-OPERATI HOSPITA VE EXAMINATION 90095 FEVER 05-18-2015 [facility] UNSPECIFIED N EMERGENCY SERV 3393 DRUG 03-20-2015 [facility] INDUCED NEUROLOGY HEADACHE NOT ELSEWHERE CLASSIFIED 0794 HUMAN 03-17-2015 [facility] VIRUS IN CCE & UNS SITE 4660 ACUTE 09-04-2012 [facility]ALTH BRONCHITIS [facility] [place] 6828 CELLULITIS 07-15-2012 EMERGENCY AND ABSCESS CARE PHYS OF OTHER [facility]THER[facility] SPECIFIED SITE 6823 CELLULITIS 05-22-2012 EMERGENCY AND ABSCESS CARE PHYS OF UPPER NORTHERN ARM AND FOREARM 6826 CELLULITIS 05-02-2012 ST AND ABSCESS MELONIE OF LEG FT LEXUS EXCEPT FOOT 04260 UNSPECIFIED 05-02-2012 ST SLEEP MELONIE APNEA FT LEXUS V061 NEED PROPH 05-02-2012 ST VAC W/COMB MELOINE DIPHTH-TETA FT LEXUS NUS-PERTUSS VAC V4589 OTHER 05-02-2012 ST POSTSURGICA MELONIE L STATUS FT LEXUS OTHER V5869 LONG-TERM 05-02-2012 ST (CURRENT) MELONIE USE OF FT LEXUS OTHER MEDICATIONS 0419 BACTERIAL 04-16-2012 ST INFECTION MELONIE UNSPECIFIED FT LEXUS CCE & UNS SITE 1121 CANDIDIASIS 04-16-2012 ST OF VULVA MELONIE AND VAGINA FT LEXUS 54399 UNSPECIFIED 04-16-2012 ST VAGINITIS MELONIE AND FT LEXUS VULVOVAGINI TIS 23267 UNSPECIFIED 03-23-2012 ST MELONIE PYELONEPHRI FT LEXUS TIS 65787 ABDOMINAL 03-23-2012 ST PAIN RIGHT MELONIE UPPER [...] OF [place] [address] ABDOMINAL 09-16-2011 ST TENDERNESS MELONIE RIGHT UPPER FT LEXUS QUADRANT 64242 ABDOMINAL 09-16-2011 ST TENDERNESS MELONIE RIGHT LOWER FT LEXUS QUADRANT 9150 ABRASION/FR 09-16-2011 ST ICTION BURN MELONIE FINGER W/O FT LEXUS MENTION INF 9222 CONTUSION 09-16-2011 ST OF MELONIE ABDOMINAL FT LEXUS WALL 85558 CONTUSION 09-16-2011 ST OF HAND MELONIE FT LEXUS 40043 UNSPECIFIED 04-27-2011 EMERGENCY SITE OF CARE PHYS ANKLE [facility] SPRAIN AND STRAIN 80734 CONTUSION 04-27-2011 EMERGENCY OF ANKLE CARE PHYS [facility] V1588 PERSONAL 04-27-2011 EMERGENCY HISTORY OF CARE PHYS FALL [facility] 89696 ABDOMINAL 04-11-2011 EMERGENCY PAIN, CARE PHYS UNSPECIFIED [...] MEDICAL MEDICAL POSITIVE AIRWAY PRESSURE DEVICE LIPID 10704 [facility] PANEL 6 [facility] COMPREHEN 85882 [facility] SIVE 6 [facility] METABOLIC HOSP HOSP PANEL URNLS DIP 46352 [facility] 6 [facility] STICK/TAB HOSP HOSP LET REAGENT AUTO MICROSCOP Y HEMOGLOBI 12879 [facility] N 6 [facility] GLYCOSYLA HOSP HOSP DONOVAN A1C COLLECTIO 72836 [facility] N VENOUS 6 [facility]ATIONAL BLOOD HOSP HOSP VENIPUNCT URE TUBING A7037 [facility] USED WITH 6 MEDICAL MEDICAL POSITIVE AIRWAY PRESSURE DEVICE RADEX 14129 [facility] SPINE 6 N N CERVICAL COMMUNTIY COMMUNTIY 4 OR 5 HOSPITA HOSPITA VIEWS CHIROPRAC 75641 MANUEL FRANCIS TIC 6 GAR MANIPULAT CHIROPRAC [place] TIC CENTE SPINAL 1-2 REGIONS MANUAL 10683 [facility] [facility] 6 TQS 1/> CHIROPRAC [facility] REGIONS TIC CENTE TIC CENTE EACH 15 MINUTES RADEX 86211 [place] IRWINANA SPINE 6 CERVICAL CHIROPRAC CHIROPRAC 2 OR 3 TIC CENTE TIC CENTE VIEWS RADEX 01313 MANUEL FRANCIS SPINE 6 GAR LUMBOSACR CHIROPRAC AL 2/3 TIC CENTE VIEWS ECG 98487 [facility] ROUTINE 6 N N ECG COMMUNTIY COMMUNTIY W/LEAST HOSPITA HOSPITA 12 [facility] TRCG ONLY W/O I&R THER 08989 [facility] PROPH/DX 6 N N NJX IV COMMUNTIY COMMUNTIY PUSH HOSPITA HOSPITA SINGLE/1S T SBST/DRUG COLLECTIO 83551 [facility] N VENOUS 6 N N BLOOD COMMUNTIY COMMUNTIY VENIPUN[place] [address] [facility] TROPONIN 6 N N QUANTITAT COMMUNTIY [place] [address] [facility] HEAD/BRAI 6 N N N W/O COMMUNTIY COMMUNTIY CONTRAST HOSPITA HOSPITA MATERIAL RADIOLOGI 64182 [facility] C 6 N N EXAMINATI COMMUNTIY COMMUNTIY ON CHEST HOSPITA HOSPITA SINGLE VIEW FRONTAL INJECTION J2405 [facility] 6 N N ONDANSETR COMMUNTIY COMMUNTIY ON HCL HOSPITA HOSPITA PER 1 MG COMPREHEN 60692 [facility] SIVE 6 N N METABOLIC COMMUNTIY COMMUNTIY PANEL HOSPITA HOSPITA NONCOVERE A9270 [facility] D ITEM OR 6 N N SERVICE COMMUNTIY COMMUNTIY HOSPITA HOSPITA BLOOD 07722 [facility] COUNT 6 N N COMPLETE COMMUNTIY COMMUNTIY [...] MEDICAL W/POSITIV E AIRWAY PRESSURE DEVICE RADEX 21723 [facility] ANKLE 5 N N COMPLETE COMMUNTIY COMMUNTIY MINIMUM 3 HOSPITA HOSPITA VIEWS ADMINISTR G0008 [facility] 5 MELONIE MELONIE INFLUENZA SELINA SELINA VIRUS VACCINE IIV4 VACC 93687 [facility] 5 MELONIE MELONIE FREE 0.5 SELINA SELINA ML FOR IM USE HOSPITAL 80082 NIRUJOGI DISCHARGE 5 MELONIELALLIE [facility] DAY MANAGEMEN PHYSICIAN T 30 S MIN/< BIOPSY 38755 GILMER JANE VULVA/PER 5 MEDICAL PEGGY INEUM 1 SERV LESION FOUNDATIO SPX N LEVEL III 14388 [facility] SURG 5 [facility] PATHOLOGY GROSS&SHERRY ROSCOPIC EXAM DESTRUCTI 90153 GILMER JANE ON BENIGN 5 MEDICAL PEGGY LESIONS SERV UP TO 14 FOUNDATIO N INJ J2930 [facility] METHYLPRD 5 N N NISOLONE COMMUNTIY COMMUNTIY SODIUM HOSPITA HOSPITA SUCCNAT TO 125 MG THERAPEUT 68549 [facility] IC 5 N N PROPHYLAC COMMUNTIY COMMUNTIY TIC/DX HOSPITA HOSPITA INJECTION SUBQ/IM LAPS 82301 [facility] MAR GSTRC 5 MELONIE RSTRICTIV PX PHYSICIAN LONGITUDI S NAL GASTRECTO MY ANTIBODY 56425 [facility] ST. SCREEN 5 MELONIE WILHELM RBC EACH SELINA MARKS SERUM TECHNIQUE BLOOD 39032 [facility] TYPING 5 MELONIEEVELINA WILHELM SEROLOGIC SELINA SELINA ABO BLOOD 85703 [facility] ST. COUNT 5 MELONIEEVELINA WILHELM COMPLETE SELINA MARKS AUTO&AUTO DIFRNTL WBC BLOOD 25690 [facility] TYPING 5 MELONIEEVELINA WILHELM SEROLOGIC SELINA MARKS RH (D) ECG 25121 [facility] ROUTINE 5 MELONIE WILHELM ECG SELINA SELINA W/LEAST 12 LDS TRCG ONLY W/O I&R COMPREHEN 74709 [facility] SIVE 5 MELONIE WILHELM METABOLIC SELINA SELINA PANEL INJECTION J1885 [facility] 5 N N KETOROLAC COMMUNTIY COMMUNTIY HOSPITA HOSPITA TROMETHAM INE PER 15 MG INJECTION J2704 [facility] PROPOFOL 5 N N 10 MG COMMUNTIY COMMUNTIY HOSPITA HOSPITA INJECTION J3010 [facility] FENTANYL 5 N N CITRATE COMMUNTIY COMMUNTIY 0.1 MG HOSPITA HOSPITA INJECTION J2250 [facility] 5 N N MIDAZOLAM COMMUNTIY COMMUNTIY HCL PER HOSPITA HOSPITA 1 MG INJECTION J1100 [facility] 5 N N DEXAMETHO COMMUNTIY COMMUNTIY SONE HOSPITA HOSPITA SODIUM PHOSPHATE 1 MG HYSTEROSC 84898 [facility] OPY 5 N N ENDOMETRI COMMUNTIY COMMUNTIY AL HOSPITA HOSPITA ABLATION INJECTION J2001 [facility] 5 N N LIDOCAINE COMMUNTIY COMMUNTIY HCL HOSPITA HOSPITA INTRAVENO US INFUS 10 MG RINGERS J7120 [facility] LACTATE 5 N N INFUSION COMMUNTIY COMMUNTIY UP TO HOSPITA H[place]PITA [address] [place] [address] [facility] SURG 5 N N PATHOLOGY COMMUNTIY COMMUNTIY HOSPITA HOSPITA GROSS&SHERRY ROSCOPIC EXAM GLUC BLD 76569 [facility] GLUC MNTR 5 N N DEV COMMUNTIY COMMUNTIY CLEARED HOSPITA HOSPITA FDA SPEC HOME USE CULTURE 89788 [facility] BACTERIAL 5 [facility] BLOOD [facility] AEROBIC W/ID ISOLATES BLOOD 99543 [facility] COUNT 5 [facility] COMPLETE [facility] AUTO&[place] [address] [facility] LACTATE 5 [facility] THERAPEUT 80983 [facility] IC 5 [facility] INJECTION [facility] [place] [address] [facility] INFUSION [address] [place] [address] THERAPY/P [facility] ROPHYLAXI S /DX 1ST TO 1 HR THER 77244 [facility] PROPH/DX [address] [place] [address] NJX EA [facility] SEQL IV PUSH SBST/[place] [address] [facility] INFUSION 5 [facility] PROPHYLAX IS/DX EA HOUR COMPREHEN 52126 [facility] SIVE 5 [facility] METABOLIC [facility] [place] [address] [facility] TRANSVAGI 5 N N NAL COMMUNTIY COMMUNTIY HOSPITA HOSPITA NEBULIZER E0570 MED-CARE MED-CARE WITH 5 DIABETIC DIABETIC COMPRESSO & MEDICAL & MEDICAL R IADNA 70284 [facility] HUMAN [facility] VIRUS HIGH-RISK TYPES CYTP C/V 27724 [facility], AUTO THIN [facility] LYR [place] [address] [facility] SURG [facility] PATHOLOGY GROSS&SHERRY ROSCOPIC EXAM INCISION 21220 EMERGENCY HERF[facility] & 2 CARE JARAD DRAINAGE PHYS ABSCESS [facility]THER[facility] COMPLICAT ED/MULTIP LE INCISION 63212 [facility] & 2 MELONIE MELONIE DRAINAGE FT FT ABSCESS LEXUS LEXUS COMPLICAT ED/MULTIP LE SUSCEPTIB 54648 [facility] LTY STDY 2 MELONIE MELONIE ANTIMICRB FT FT IAL [place] MICRO/AGA R DILUTJ SMR PRIM 21958 [facility] SRC 2 MELONIE MELONIE GRAM/GIEM FT FT SA STAIN [place] BCT FUNGI/NOAH L IM ADM 88444 [facility] PRQ ID 2 MELONIEEVELINA STRATTONBETH SUBQ/IM FT FT NJXS 1 [place] VACCINE TDAP 80926 [facility] VACCINE 7 2 MELONIE SALASZABETH YRS/> IM FT FT [place] CUL BACT 94432 [facility] XCPT 2 MELONIE SALASZABETH URINE FT FT BLOOD/STO [place] OL AEROBIC ISOL CUL BACT 57796 [facility] AEROBIC 2 MELONIE MELONIE ADDL FT FT METHS [place] DEFINITIV E EA ISOL URNLS DIP 33482 [facility] 2 MELONIE SALASZABETH STICK/TAB FT FT LET [place] REAGENT AUTO MICROSCOP Y GONADOTRO 12401 [facility] PIN 2 MELONIE MELONIE CHORIONIC FT FT [place] QUALITATI VE GLUCOSE 80328 [facility] BLOOD 2 MELONIE MELONIE REAGENT FT FT STRIP [place] IADNA 37311 [facility] NEISSERIA 2 MELONIE MELONIE FT FT GONORRHOE [place] AE AMPLIFIED PROBE TQ SMR PRIM 29687 [facility] SRC WET 2 MELONIE MELONIE MOUNT FT FT NFCT AGT L[place] IADNA 42381 [facility] CHLAMYDIA 2 MELONIE MELONIE FT FT TRACHOMAT [place] IS AMPLIFIED PROBE TQ THERAPEUT [address] IC 2 MELONIE MELONIE PROPHYLAC FT FT TIC/DX [place] INJECTION SUBQ/IM INJECTION J1885 ST 2 MELONIE MELONIE KETOROLAC FT FT [place] TROMETHAM INE PER 15 MG BASIC 28817 [facility] METABOLIC 2 MELONIE MELONIE PANEL FT FT CALCIUM [place] TOTAL INJECTION J0696 ST 2 MELONIE MELONIE CEFTRIAXO FT FT NE SODIUM LEXUS LEXUS PER 250 MG HEPATIC 58932 [facility] FUNCTION 2 MELONIE MELONIE PANEL FT FT [place] COLLECTIO 86242 [facility] N VENOUS 2 MELONIE MELONIE BLOOD FT FT VENIPUN[place] [address] [facility] AMYLASE 2 MELONIE MELONIE FT FT [place] GONADOTRO 81760 [facility] PIN 2 MELONIE SALASZABETH CHORIONIC FT FT [place] QUALITATI VE BLOOD 06936 [facility] COUNT 2 MELONIE MELONIE COMPLETE FT FT AUTO&AUTO [place] DIFRNTL WBC URNLS DIP [address]89 ST 2 MELONIE MELONIE STICK/TAB FT FT LET [place] REAGENT AUTO MICROSCOP Y CULTURE 27435 [facility] BACTERIAL 2 MELONIE MELONIE FT FT QUANTTATI LEXUS LABERTS VE COLONY COUNT URINE CULTURE 17110 [facility] BCT 2 MELONIE MELONIE ISOL&PRSM FT FT PTV ID [place] ISOLATE EA URINE CULTURE 55511 [facility] TYPING 2 MELONIE MELONIE IMMUNOLOG FT FT IC L[place] OTH/[place] [address] [facility] LIPASE 2 MELON[place] [address] [facility] ABDOMEN & 2 MELONIE MELONIE PELVIS FT FT W/O L[place] CONTRAST MATERIAL THERAPEUT 51659 [facility] IC 2 MELONIE MELONIE PROPHYLAC FT FT TIC/DX [place] INJECTION SUBQ/IM RADEX [address] SHOULDER 2 MELONIECHANTE WILHELM COMPLETE FT FT MINIMUM 2 LEXUS [place]EXUS VIEWS INJECTION J2360 ST ST 2 MELONIE MELONIE ORPHENADR FT FT INE LEXUS [place]EXUS CITRATE UP TO [address] METABOLIC 2 MELONIE MELONIE PANEL CALCIUM MEDICALCE MEDICALCE TOTAL NTER NTER RADIOLOGI [address] C EXAM 2 MELONIE MELONIE CHEST 2 VIEWS MEDICALCE MEDICALCE FRONTAL&L NTER NTER ATERAL ECG [address] ROUTINE 2 MELONIE MELONIE ECG W/LEAST MEDICALCE MEDICALCE 12 LDS NTER NTER TRCG ONLY W/O I&R NATRIURET 8[address]4 ST ST IC 2 MELONIE MELONIE PEPTIDE [place] [address] TROPONIN 2 MELONIEEVELINA WILHELM QUANTITAT [facility] MEDICALCE NTER NTER BLOOD [address] COUNT 2 MELONIECHANTE WINCHESTERTH COMPLETE AUTO&AUTO MEDICALCE MEDICALCE DIFRNTL NTER NTER WBC COLLECTIO 58988 ST ST N VENOUS 2 MELONIE MELONIE BLOOD VENIPUNCT MEDICALCE MEDICALCE URE NTER NTER INJECTION J1170 ST ST 1 MELONIE WILHELM HYDROMORP FT FT KM UP LEXUS [place]EX[place] [address] [place] [address] ABDOMEN & 1 MELONIE WINCHESTERTH PELVIS FT FT W/CONTRAS LEXUS LEXUS T MATERIAL LOCM Q9967 ST ST 300-399 1 MELONIE WILHELM MG/ML FT FT IODINE LEXUS LEXUS CONCENTRA TION PER ML INJECTION J2405 ST ST 1 MELONIE WILHELM ONDANSETR FT FT ON HCL LEXUS LEXSU PER [address] 1 MELONIEEVELINA WILHELM ONDANSETR FT FT ON HCL LEXUS LEXUS PER [address] PROPH/DX 1 MELONIE WILHELM NJX EA FT FT SEQL IV LEXUS LEXUS PUSH SBST/DRUG FAC BASIC [address] METABOLIC 1 MELONIE STRATTONBETH PANEL FT FT CALCIUM L[place] TOTAL HEPATIC [address] FUNCTION 1 MELONIE MELONIE PANEL FT FT [place] THERAPEUT [address] IC 1 MELONIE WILHELM INJECTION FT FT IV PUSH [place] EACH NEW DRUG INJECTION J1170 ST ST 1 MELONIEEVELINA WILHELM HYDROMORP FT FT KM UP [place] TO [address] IN TIME 1 MELONIE MELONIE FT FT [place] RADEX [address] HAND 1 MELONIE WILHELM MINIMUM 3 FT FT VIEWS LEXUS LEXUS THER [address] PROPH/DX 1 MELONIE WILHELM NJX IV FT FT PUSH L[place] SINGLE/1S T SBST/DRUG COLLECTIO [address] N VENOUS 1 MELONIE WILHELM BLOOD FT FT VENIPUNCT LEXUS LEXUS URE BLOOD [address] COUNT 1 MELONIE WILHELM COMPLETE FT FT AUTO&AUTO [place] DIFRNTL WBC GONADOTRO [address] PIN 1 MELONIE WILHELM CHORIONIC FT FT [place] QUALITATI VE Encounters Encounter Start End Date Code Location Performer Type Date OFFICE 30630 [facility] TALIA OUTPATIEN 6 6 N T VISIT NEUROLOGY 10 MINUTES [facility] 6 [facility] OUTPATIEN HOSP T OFFICE 06843 [facility] OUTPATI[facility] 6 6 Y OF T VISIT [place] 15 HOSPI [facility] - 6 6 N OUTPATIEN COMMUNTIY T HOSPITA OFFICE 94024 MANUEL FRANCIS OUTPATIEN 6 6 GAR T NEW 30 CHIROPRAC MINUTES [facility]IC CENTE OFFICE 93348 [facility]IVERSIT RAFIQ CAR OUTPATIEN 6 6 Y OF T VISIT [facility] 15 HOSPI MINUTES EMERGENCY 38446 [facility] 6 6 N DEPARTMEN COMMUNTIY T VISIT HOSPITA HIGH/URGE NT SEVERITY HOSPITAL [facility] - 6 6 N OUTPATIEN COMMUNTIY T HOSPITA OFFICE 31495 [facility] OUTPATIEN 5 5 FOOT & N PETEY T VISIT ANKLE CE 15 MINUTES OFFICE 46049 [facility] JANE OUTPATIEN 5 5 MEDICAL PEGGY T VISIT SERV 10 FOUNDATIO MINUTES [facility] - 5 5 N OUTPATIEN COMMUNTIY T [facility] 5 5 [facility] 5 5 N OUTPATIEN COMMUNTIY T HOSPITA EMERGENCY 46958 [facility] 5 5 NEMO DEPARTMEN EMERGENCY T VISIT PHYS HIGH/URGE NT SEVERITY OFFICE 78987 [facility] BROWN OUTPATIEN 5 5 MEDICAL JEAN T VISIT SERV 15 FOUNDATIO MINUTES [facility] - 5 5 [facility] T OFFICE 92859 [facility] OUTPATIEN 5 5 N T VISIT NEUROLOGY 15 [facility] 5 5 [facility]ATIONAL OUTPATIEN HOSP T OFFICE 39199 [facility] CAR OUTPATIEN 5 5 NURSE T VISIT PRACTITIO 15 NER GR [facility] - 5 5 N OUTPATIEN COMMUNTIY T [facility] - 5 5 N OUTPATIEN COMMUNTIY T HOSPITA OFFICE 13387 [facility] JANE OUTPATIEN 5 5 MEDICAL PEGGY T VISIT SERV 15 FOUNDATIO MINUTES [facility] - 5 5 HEALTH OUTPATIEN ABDALLA T EMERGENCY 61859 [facility] DEPT 5 5 NEMO TOD VISIT EMERGENCY HIGH SERV SEVERITY& THREAT FUN H[facility] - 5 5 N OUTPATIEN COMMUNTIY T HOSPITA OFFICE 65855 GIL[facility] JANE OUTPATIEN 5 5 MEDICAL PEGGY T VISIT SERV 15 FOUNDATIO MINUTES N OFFICE 67500 [facility] [place] OUTPATIEN 5 5 N T VISIT NEUROLOGY 15 MINUTES OFFICE 20677 [facility] OUTPATIEN 2 2 POINT T VISIT FAMILY 15 CARE, IN MINUTES EMERGENCY 81634 EMERGENCY HERFEL 2 2 CARE JARAD DEPARTMEN PHYS T VISIT [facility] MODERATE SEVERITY EMERGENCY 43173 EMERGENCY RICHARDSO 2 2 CARE N [place] DEPARTMEN PHYS T VISIT [facility] HIGH/URGE NT SEVERITY EMERGENCY 57145 ST 2 2 MELONIE DEPARTMEN FT T VISIT [facility] MODERATE SEVERITY EMERGENCY 34501 EMERGENCY HERFEL 2 2 CARE JARAD DEPARTMEN PHYS T VISIT [facility] HIGH/URGE NT SEVERITY HOSPITAL ST - 2 2 MELONIE OUTPATIEN FT T [facility] EMERGENCY 22612 ST 2 2 MELONIE DEPARTMEN FT T VISIT [facility] SEVERITY [facility] ST - 2 2 MELONIE OUTPATIEN FT T [facility] EMERGENCY 93637 EMERGENCY HERFEL 2 2 CARE JARAD DEPARTMEN PHYS T VISIT [facility] HIGH/URGE NT SEVERITY EMERGENCY 28238 ST 2 2 MELONIE DEPARTMEN FT T VISIT [facility] HIGH/URGE NT SEVERITY [facility]PITAL ST - 2 2 MELONIE OUTPATIEN FT T LEXUS EMERGENCY 64702 EMERGENCY GAUTRAUD DEPT 2 2 CARE LENNOX VISIT PHYS HIGH [facility] SEVERITY& THREAT FUNJ EMERGENCY 15115 EMERGENCY LOVE TACO 2 2 CARE DEPARTMEN PHYS T VISIT [facility] HIGH/URGE NT SEVERITY EMERGENCY 16076 EMERGENCY CARMEN 2 2 CARE MAURY DEPARTMEN PHYS T VISIT [facility] HIGH/URGE NT SEVERITY HOSPITAL ST - 2 2 MELONIE OUTPATIEN FT T [facility] EM[facility] 30671 ST 2 2 MELONIE DEPARTMEN FT T VISIT [facility] [facility] - 2 2 [facility] OUT[facility] T [facility] EMERGENCY [id number] 2 2 [facility] DEPARTMEN T VISIT [facility] H[facility]/URGE NTER NT SEVERITY EMERGENCY [id number] [address] 1 1 [place] DEPARTMEN FT T VISIT [place] [facility] NT SEVERITY [facility] ST - 1 1 [facility] OUTPATIEN FT T [place] [facility] [id number] EMERGENCY [facility] 1 1 CARE DEPARTMEN PHYS T VISIT [facility] NT SEVERITY EMERGENCY [id number] EMERGENCY [place] 1 1 CARE N [facility] DEPARTMEN PHYS T VISIT [facility] H[facility] NT SEVERITY
[2017-07-16 06:35] LABS: BUN 20 mg/dL (7-18); GFR (ESTIMATED) 58 ML/MIN (59-)
[2017-07-16 06:50] LABS: NEUTROPHILS 46 % (42-76)
--- NOTE | 2017-07-16 06:53 | RADIOLOGY REPORT PS360 ---
CHEST(2 VIEWS-NOT PORTABLE) HISTORY: C/O LEFT CHEST PAIN ORDERING PHYSICIAN: PATIENT AGE: 57 years COMPARISON: None available FINDINGS: The cardiomediastinal silhouette and pulmonary vascularity are within normal limits. No lobar consolidation or collapse is evident. A calcified granuloma is present in the left lower lobe. There is a faint nodular opacity in left midlung at 7 mm. The remaining lungs are clear. No acute bony anomalies. IMPRESSION: 1. No acute findings. 2. 7 mm left midlung nodular opacity nonspecific. Consider follow-up to confirm stability..
--- NOTE | 2017-07-16 08:01 | HISTORY AND PHYSICAL REPORT ---
Demographics: Admit date: 07/16/17 Chief complaint: Chest pain PRIMARY DIAGNOSIS: CHEST PAIN Allergies: Coded Allergies: Lwohfsj-Npl-Kwg Reductase Inhibitor (Intermediate, 11/16/16) Sulfa (Sulfonamide Antibiotics) (Intermediate, I-RASH 11/16/16) metoclopramide (From REGLAN) (Intermediate, ANXIETY 11/16/16) Penicillins (Mild, I-RASH 11/16/16) latex (Mild, I-RASH 11/16/16) tramadol (11/16/16) History of present illness: History of present illness: 57-year-old white female with history of coronary atherosclerosis, status post 2 stent placements in March [address] Mendoza, who has been fine since that time, but came to the emergency department late yesterday evening with a chief complaint of LEFT subcostal pain that felt "just like my chest pain before." In view of her diabetes, character of her pain, etc. she was admitted to hospital for serial cardiac enzymes and further diagnostic testing. Currently she feels fine with no pain since admission. Past medical history: Family HX Diabetes Yes CAD Yes Hypertension Yes Hyperlipidemia Yes Cancer Yes TB Yes Immunization HX DT/Tetanus 1-4 Years Ago Flu 2015-FSN Pneumonia Received In Past TB Test in last year Yes Result Negative General CAD? Yes Angina: No MD: No Hypertension? Yes Hyperlipidemia? Yes CHF? No DVT? No PE? No COPD? No Asthma? Yes Anemia? No GERD? Yes Gastric ulcers? Yes GI Bleed? Yes Hernia? Yes Thyroid Problems? No Hypothyroidism? No CVA? No Seizures? No Diabetes? Yes Insulin Dependent: No Insulin Pump: No Home FSBS? Yes Renal Insuffiency? No UTI? No Stones? No BPH? No GB Disease: Yes Nephritic Syndrome? No Asplenia? No Hepatitis? Yes Sickle Cell Disease? No Arthritis? Yes Migraines? No Cataracts? No Glaucoma? No MRSA? Yes HIV? No TB? No Anxiety? Yes Depression? Yes Cancer? No More? 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 No Patien't marital status is single Patient's support system is fair Review of systems: Constitutional malaise. No: fever, weakness. Respiratory No: no symptoms reported. Cardiovascular see HPI, chest pain, No edema, No palpitations, No syncope Gastrointestinal/Abdominal No no symptoms reported Genitourinary No: no symptoms reported. Musculoskeletal No: no symptoms reported. Neurological No: see HPI. Exam: Lab data for last 24 hours: Laboratory Tests 07/16/17 0530: Sodium 140, Potassium 4.8, Chloride 103, Carbon Dioxide 31, BUN 20 H, Creatinine 1.0, Estimated Creat Clear 134, Estimated GFR (MDRD) 58 L, Glucose 161 H, Calcium 9.1, Creatine Kinase 25 L, CK-MB (CK-2) Rel Index 2.0, CK and CKMB Interp < 0.5, Troponin I < 0.02, WBC 8.8, RBC 4.13 L, Hgb 12.0 L, Hct 37.4, MCV 90.5, RDW 12.9, Plt Count 226, MPV 7.9, Gran % 35.4 L, Gran # 3.1, Total Counted 100, Lymphocytes % 57.7 H, Monocytes % 5.0, Eosinophils % 1.4, Basophils % 0.5, Neutrophils 46, Band Neutrophils 3, Lymphocytes (Manual) 48, Lymphocytes # 5.1 H, Monocytes (Manual) 2, Monocytes # 0.4, Eosinophils # 0.1, Eosinophils # (Manual) 1, Basophils # 0.1, Platelet Estimate NORMAL, Hypochromasia 1+, Poikilocytosis SL., PUBS MCHC 32.1, MCH 29.1 07/16/17 0205: Creatine Kinase 28, CK-MB (CK-2) Rel Index 1.8, CK and CKMB Interp < 0.5, Troponin I < 0.02 07/15/171932: Sodium 138, Potassium 4.4, Chloride 102, Carbon Dioxide 29, BUN 22 H, Creatinine 1.2 H, Estimated Creat Clear 114, Estimated GFR (MDRD) 47 L, Glucose 162 H, Calcium 9.7, Total Bilirubin 0.3, AST 16, ALT 25, Alkaline Phosphatase 111, Creatine Kinase 35, CK-MB (CK-2) Rel Index 1.4, CK and CKMB Interp < 0.5, Troponin I < 0.02, Total Protein 7.9, Albumin 3.9, Globulin 4.0 H , Albumin/Globulin Ratio 1.0 L, WBC 10.6, RBC 4.70, Hgb 13.5, Hct 42.4, MCV 90.2, RDW 12.9, Plt Count 292, MPV 7.9, Gran % 51.8, Gran # 5.5, Lymphocytes % 42.1, Monocytes % 4.4, Eosinophils % 1.1, Basophils % 0.5, Lymphocytes # 4.5, Monocytes # 0.5, Eosinophils # 0.1, Basophils # 0.1, PUBS MCHC 32.0, MCH 28.8 Admission vital signs: 1ST Vital Signs Result Date Time Pulse Ox 98 07/15 1922 B/P 120/83 07/15 1922 Temp 99.1 07/15 1922 Pulse 54 07/15 1922 Resp 24 07/15 1922 O2 Delivery ROOM AIR 07/15 2239 Additional information: Patient is morbidly obese which limits her exam, but she is pleasant and talkative. She has several scripts tattoos on her forearms of family members names, but otherwise no identifying scars. Oropharynx clear, lungs and anterior nina are clear. Heart rate regular. Abdomen soft, no capillary refill problems or perfusion deficits. Moves all extremities equally, cranial nerves are intact. Plan: Problem List 1. Chest pain 2. Coronary atherosclerosis 3. Morbid obesity with BMI of 45.0-49.9, adult 4. Diabetes mellitus type 2 in obese Plan: Plan will be to admit to hospital. Rule out myocardial infarction by enzyme and electrocardiogram criteria. Cardiology consult given her multiple risk factors and character of her pain. at 0801
--- NOTE | 2017-07-16 13:36 | PHARMACY CLINIC NOTE ---
Patient Demographics Patient Demographics Admission date: 07/15/17 Date: 07/16/17 Time: 1336 Allergies Coded Allergies: Tfrkjnc-Boq-Kmb Reductase Inhibitor (Intermediate, 11/16/16) Sulfa (Sulfonamide Antibiotics) (Intermediate, I-RASH 11/16/16) metoclopramide (From REGLAN) (Intermediate, ANXIETY 11/16/16) Penicillins (Mild, I-RASH 11/16/16) latex (Mild, I-RASH 11/16/16) tramadol (11/16/16) HEIGHT- FT: 5 IN: 6.00 K.897 VTE General Information Labs: Laboratory Tests 07/16 07/15 0530 1933 Hematology Hgb (12.2 - 16.2 g/dL) 12.0 L 13.5 Hct (37.0 - 47.0 %) 37.4 42.4 Plt Count (142 - 424 K/mm3) 226 292 Disclaimer The following section includes nursing documentation that has been pulled in for pharmacy review. Patient's VTE score: 3 Patient's VTE Risk: LOW RISK Clinical trial participant? No VTE prophylaxis NQF [id number] VTE prophylaxis ordered? Yes Type of prophylaxis/treatment: DONOVAN at [id number]
--- NOTE | 2017-07-16 13:36 | PHARMACY CLINIC NOTE ---
Patient Demographics Patient Demographics Admission date: 07/15/17 Date: 07/16/17 Time: 1336 Allergies Coded Allergies: Hhtfgop-Fdw-Gjr Reductase Inhibitor (Intermediate, 11/16/16) Sulfa (Sulfonamide Antibiotics) (Intermediate, I-RASH 11/16/16) metoclopramide (From REGLAN) (Intermediate, ANXIETY 11/16/16) Penicillins (Mild, I-RASH 11/16/16) latex (Mild, I-RASH 11/16/16) tramadol (11/16/16) HEIGHT- FT: 5 IN: 6.00 K.897 VTE General Information Labs: Laboratory Tests 07/16 07/15 0530 1933 Hematology Hgb (12.2 - 16.2 g/dL) 12.0 L 13.5 Hct (37.0 - 47.0 %) 37.4 42.4 Plt Count (142 - 424 K/mm3) 226 292 Disclaimer The following section includes nursing documentation that has been pulled in for pharmacy review. Patient's VTE score: 3 Patient's VTE Risk: LOW RISK Clinical trial participant? No VTE prophylaxis NQF [id number] VTE prophylaxis ordered? Yes Type of prophylaxis/treatment: DONOVAN at 1913
[2017-07-17 00:21] VITALS: BP 111/62
[2017-07-17 04:04] VITALS: BP 108/59
--- NOTE | 2017-07-17 07:26 | ACUTE CARE PROGRESS NOTE (QUA) ---
Progress Notes Subjective Date 07/17/17 Time 0726 Note Patient with no chest pain through the night. Feels good. Heart rate regular, lungs clear. Patient alert, oriented. Objective Findings Last VS-Temp:98.3 B/P:108/59 Pulse:53 Resp:16 SaO2:96 ROOM AIR Last weight lbs:295 oz:3 K.897 Method:Bed Scales Assessment/Plan Problem List 1. Chest pain Qualifiers: Chest pain type: precordial pain Qualified Code: R07.2 - Precordial pain 2. Coronary atherosclerosis 3. Morbid obesity with BMI of 45.0-49.9, adult 4. Diabetes mellitus type 2 in obese Patient condition Stable Plan: consult material inspector This inpt stay is expected to cross 2 MNs from start of care No at 07
--- NOTE | 2017-07-17 07:26 | ACUTE CARE PROGRESS NOTE (QUA) ---
Progress Notes Subjective Date 07/17/17 Time 0726 Note Patient with no chest pain through the night. Feels good. Heart rate regular, lungs clear. Patient alert, oriented. Objective Findings Last VS-Temp:98.3 B/P:108/59 Pulse:53 Resp:16 SaO2:96 ROOM AIR Last weight lbs:295 oz:3 K.897 Method:Bed Scales Assessment/Plan Problem List 1. Chest pain Qualifiers: Chest pain type: precordial pain Qualified Code: R07.2 - Precordial pain 2. Coronary atherosclerosis 3. Morbid obesity with BMI of 45.0-49.9, adult 4. Diabetes mellitus type 2 in obese Patient condition Stable Plan: consult soil expert This inpt stay is expected to cross 2 MNs from start of care No at 0788
[2017-07-17 08:00] VITALS: BP 119/69
--- NOTE | 2017-07-17 08:53 | CONSULT NOTE ---
Standard Demographics Patient Demo Date of Consultation: 07/17/17 Referring Provider: Nikko Miguel MD Reason for Consultation: Chest pain PRIMARY DIAGNOSIS: CHEST PAIN Problem list Problem list: 1. Hypertension 2. History of morbid obesity A. Status post gastric sleeve, 2014, greater than 100 pound weight loss since then. 3. Coronary artery disease A. Cardiac catheterization with resultant drug-eluting stent placement to the left anterior descending and ramus in October 2016. Patient stopped her Effient after 5 months. She has continued on aspirin. 4. Diabetes mellitus, previously insulin requiring, with initial treatment for diabetes starting at age 28. 5. Hyperlipidemia, intolerant to statin therapy. Only uses Fish oil. 6. Strong family history of coronary artery disease in both mother and father in their early 50s. History of present illness: History of present illness: 57-year-old white female with history of coronary atherosclerosis, status post 2 stent placements in March [address] Mendoza, who has been fine since that time, but came to the emergency department late yesterday evening with a chief complaint of LEFT subcostal pain that felt "just like my chest pain before." In view of her diabetes, character of her pain, etc. she was admitted to hospital for serial cardiac enzymes and further diagnostic testing. Currently she feels fine with no pain since admission. The above per Dr. Miguel. Patient relates about a 15-20 minute episode of substernal chest pressure that was similar in character but less intense than her discomfort in October this year which time she received 2 drug-eluting stents her left anterior descending and ramus intermedius. Patient does relate some gastrointestinal upset over the last 3-4 days with tender 15 loose bowel movements daily. She did associate some nausea with her episode of chest discomfort. She does have exertional shortness of breath which she feels is related to her history of asthma. Patient has been able to exercise recently without any chest discomfort. Again her exercise activity is limited by her shortness of breath from asthma. She continues to lose weight since her gastric sleeve in 2014. She feels that her blood pressure may be running too low and would like to have her blood pressure medications adjusted while here. Cardiology consult for evaluation chest pain. Troponins are returned normal 3. Electrocardiogram is sinus bradycardia and unremarkable. Past Medical History: General: Hypertension Yes CVA No Seizures No TB No COPD No Asthma Yes Diabetes Yes Insulin Dependent No Insulin Pump No Angina No PR No Hyperlipidemia Yes Urinary No Cancer No Ulcers No MRSA Yes GB Disease Yes Additional hx RECENT HEART STENTS X2 PLACED TWO WEEKS AGO Past Surgical HX: Previous Surgery?Y Back FLORENCIA KNEE Appendix GallbladdER GASTRIC SLEEVE HEART STENTS X 2 Oral Surgery Allergies Coded Allergies: Zuulgpn-Wmr-Pcs Reductase Inhibitor (Intermediate, 11/16/16) Sulfa (Sulfonamide Antibiotics) (Intermediate, I-RASH 11/16/16) metoclopramide (From REGLAN) (Intermediate, ANXIETY 11/16/16) Penicillins (Mild, I-RASH 11/16/16) latex (Mild, I-RASH 11/16/16) tramadol (11/16/16) Home medications: Reported Medications Lisinopril (Lisinopril 40MG) 40 MG PO BID Amlodipine Besylate (Amlodipine) 10 MG PO BID Famotidine 40 MG PO BID #60 Metoprolol Succinate 25 MG PO DAILY #90 Allopurinol 100 MG PO BID #60 Metformin HCl (Metformin) 500 MG PO BID #180 Sertraline Hcl (Sertraline 50MG) 25 MG PO DAILY #90 OXYBUTYNIN CHLORIDE (Oxybutynin 5MG Tab) 5 MG PO BID Acetaminophen (Tylenol XS 500MG) 500 MG PO Q6HP PRN FEVER Prasugrel HCl (Effient) 10 MG PO DAILY Current Medications: Current Medications Morphine Sulfate 0 .STK-MED ONE .ROUTE (DCr) Morphine Sulfate 0 .STK-MED ONE .ROUTE (DCr) Morphine Sulfate 0 .STK-MED ONE .ROUTE (DCr) Metoprolol Succinate 12.5 MG DAILY PO Lisinopril 20 MG DAILY PO Sodium Chloride 10 ML PRN PRN IV Allopurinol 100 MG BID PO Amlodipine Besylate 10 MG BID PO Famotidine 20 MG BID PO Lisinopril 40 MG DAILY PO (DC) Metformin HCl 500 MG BIDD PO Metoprolol Succinate 25 MG DAILY PO (DC) Oxybutynin Chloride 5 MG BID PO Polyethylene Glycol 17 GM DAILY PO Prasugrel 10 MG DAILY PO Sertraline HCl 25 MG DAILY PO Diagnostic Test (Pha) 1 EACH W/MEALS&HS FS Insulin Human [rDNA origin] SEE ADMIN CRITERIA FOR LOW INTENSITY SS W/MEALS&HS SC Morphine Sulfate 2 MG Q4HP PRN IV Acetaminophen 650 MG Q4HP PRN PO Influenza Virus Vaccine Quadrival 0.5 ML PRN PRN IM Ondansetron HCl 4 MG Q6HP PRN IV Sodium Chloride 1,000 ML .Q20H IV Sodium Chloride 10 ML PRN PRN IV (DC) Immunization HX DT/Tetanus 1-4 Years Flu 2015-FSN Pneumonia RECEIVED IN PAST TB Test in last year Yes Result Negative Family history Family HX Family Hx Insignificant No Diabetes Yes CAD Yes Hypertension Yes Hyperlipidemia Yes Cancer Yes TB Yes Social Hx: Smoking HX Tobacco No Alcohol Alcohol: No Hx of Drug Use Drug Use? No Review of systems: Constitutional weakness. Respiratory SOB with excertion. Cardiovascular chest pain Gastrointestinal/Abdominal abdominal pain, diarrhea Genitourinary No: no symptoms reported. Musculoskeletal No: no symptoms reported. Neurological No: no symptoms reported. Exam: Admission Vital Signs: 1ST Vital Signs Result Date Time Pulse Ox 98 07/15 1922 B/P 120/83 07/15 1922 Temp 99.1 07/15 1922 Pulse 54 07/15 1922 Resp 24 07/15 1922 O2 Delivery ROOM AIR 07/15 2239 Last Vital Signs: Vital Signs Result Date Time Pulse Ox 98 07/17 800 B/P 119/69 07/17 800 O2 Delivery ROOM AIR 07/17 800 Temp 97.6 07/17 800 Pulse 56 07/17 800 Resp 18 07/17 800 Exam General appearance: alert, awake, no acute distress Neck: no carotid bruit, no JVD Cardiovascular: regular rate & rhythm, no murmur Respiratory: clear to auscultation ABD: soft, no tenderness Extremities: moves all, no peripheral edema Neuro: alert, dinkey engine firer II-XII nml as tested, oriented Laboratory data: Laboratory Tests 07/16/179: POC Glucose 171 H 07/16/17 1644: POC Glucose 172 H 07/16/17 1124: POC Glucose 174 H 07/16/17 0622: POC Glucose 154 H 07/16/17 0530: Sodium 140, Potassium 4.8, Chloride 103, Carbon Dioxide 31, BUN 20 H, Creatinine 1.0, Estimated Creat Clear 134, Estimated GFR (MDRD) 58 L, Glucose 161 H, Calcium 9.1, Creatine Kinase 25 L, CK-MB (CK-2) Rel Index 2.0, CK and CKMB Interp < 0.5, Troponin I < 0.02, WBC 8.8, RBC 4.13 L, Hgb 12.0 L, Hct 37.4, MCV 90.5, RDW 12.9, Plt Count 226, MPV 7.9, Gran % 35.4 L, Gran # 3.1, Total Counted 100, Lymphocytes % 57.7 H, Monocytes % 5.0, Eosinophils % 1.4, Basophils % 0.5, Neutrophils 46, Band Neutrophils 3, Lymphocytes (Manual) 48, Lymphocytes # 5.1 H, Monocytes (Manual) 2, Monocytes # 0.4, Eosinophils # 0.1, Eosinophils # (Manual) 1, Basophils # 0.1, Platelet Estimate NORMAL, Hypochromasia 1+, Poikilocytosis SL., PUBS MCHC 32.1, MCH 29.1 07/16/17 0205: Creatine Kinase 28, CK-MB (CK-2) Rel Index 1.8, CK and CKMB Interp < 0.5, Troponin I < 0.02 07/15/17 1933: Sodium 138, Potassium 4.4, Chloride 102, Carbon Dioxide 29, BUN 22 H, Creatinine 1.2 H, Estimated Creat Clear 114, Estimated GFR (MDRD) 47 L, Glucose 162 H, Calcium 9.7, Total Bilirubin 0.3, AST 16, ALT 25, Alkaline Phosphatase 111, Creatine Kinase 35, CK-MB (CK-2) Rel Index 1.4, CK and CKMB Interp < 0.5, Troponin I < 0.02, Total Protein 7.9, Albumin 3.9, Globulin 4.0 H , Albumin/Globulin Ratio 1.0 L, WBC 10.6, RBC 4.70, Hgb 13.5, Hct 42.4, MCV 90.2, RDW 12.9, Plt Count 292, MPV 7.9, Gran % 51.8, Gran # 5.5, Lymphocytes % 42.1, Monocytes % 4.4, Eosinophils % 1.1, Basophils % 0.5, Lymphocytes # 4.5, Monocytes # 0.5, Eosinophils # 0.1, Basophils # 0.1, PUBS MCHC 32.0, MCH 28.8 Plan: Assessment: 1. Chest pain with no evidence of acute coronary syndrome. 2. History of hypertension with recent low blood pressure per patient. 3. Coronary disease with previous coronary artery stenting in October 2016. Patient on dual antiplatelet therapy only for 6 months and then has been on aspirin since then. 4. Diabetes mellitus 5. Obesity 6. Hyperlipidemia, intolerant to statin therapy Recommendations: 1. Blood pressure medications have been adjusted per Dr. Miguel. 2. Patient will not be able to afford Effient. Would recommend aspirin 81 mg daily and starting clopidogrel 75 mg daily. Would add isosorbide mononitrate 30 mg one half tablet twice a day. 3. Will obtain echocardiogram today to evaluate LEFT ventricular size and function along with valve status. If essentially normal then would recommend discharge home for follow-up next week. I did discuss proceeding with stress testing and/or cardiac catheterization with the patient, but she would like to hold off on this at this time. at [id number]
[2017-07-17] MEDS ORDERED: PLAVIX75 M1 PO (10:55)
[2017-07-17] MEDS ORDERED: ISOSORBIDE MONO30 MG PO (10:56)
--- NOTE | 2017-07-17 10:58 | DISCHARGE SUMMARY STANDARD ---
Demographics Admit date: 07/16/17 Discharge date: 07/17/17 History of present illness History of present illness 57-year-old white female with history of coronary atherosclerosis, status post 2 stent placements in March [address] Mendoza, who has been fine since that time, but came to the emergency department late yesterday evening with a chief complaint of LEFT subcostal pain that felt "just like my chest pain before." In view of her diabetes, character of her pain, etc. she was admitted to hospital for serial cardiac enzymes and further diagnostic testing. Currently she feels fine with no pain since admission. Cardiology consult noted below: Patient relates about a 15-20 minute episode of substernal chest pressure that was similar in character but less intense than her discomfort in October this year which time she received 2 drug-eluting stents her left anterior descending and ramus intermedius. Patient does relate some gastrointestinal upset over the last 3-4 days with tender 15 loose bowel movements daily. She did associate some nausea with her episode of chest discomfort. She does have exertional shortness of breath which she feels is related to her history of asthma. Patient has been able to exercise recently without any chest discomfort. Again her exercise activity is limited by her shortness of breath from asthma. She continues to lose weight since her gastric sleeve in 2014. She feels that her blood pressure may be running too low and would like to have her blood pressure medications adjusted while here. Cardiology consult for evaluation chest pain. Troponins are returned normal 3. Electrocardiogram is sinus bradycardia and unremarkable. Hospital Course Hospital Course: Patient was admitted. Rule out for RI as noted. Cardiology consult noted. Recommend a change in anticoagulation therapy and adding a long-acting nitrate for short-term followup. This will be arranged. Discharge diagnoses Problem List 1. Chest pain 2. Coronary atherosclerosis 3. Morbid obesity with BMI of 45.0-49.9, adult 4. Diabetes mellitus type 2 in obese Medications Medications: Discharge meds are as noted. Follow up Follow up in office in: 7 DAYS with: Attila Mendoza MD at [phone]
[2017-07-17 11:58] VITALS: BP 119/69
--- NOTE | 2017-07-17 20:44 | RADIOLOGY REPORT PS360 ---
PROCEDURE: 2-D M-mode and color Doppler study INDICATIONS FOR THE TEST: Chest pain X COPD Heart Murmur Tobacco Smoking Palpitations Fatigue Syncope Edema HypertensionXXDiabetes MellitusX Rheumatic Fever SOB RICHARDSON ObesityXHyperlipidemiaX Family History HD Additional History CAD STENRS PATIENT INFORMATION HEIGHT: 66 WEIGHT:295 GENDER: Female B/P:108/59 2-D/M-MODE INTERPRETATION: 2-D MEASUREMENTS OBSERVED VALUES IN CMS Right Ventricular Dimension (RVDd) 1.2 Interventricular Septum (Thickness)(IVsd) 1.1 Left Ventricular Internal Dimensions(LVIDd) 5.8 Left Ventricular Posterior Wall (Thickness)(LVPWd) 1.1 Aortic Root 3.5 Aortic Cusp Separation 2.1 Left Atrial Dimensions (LAD) 3.5 2D 1. The left atrium is mildly enlarged, left ventricle is normal size, there is mild concentric left ventricular hypertrophy present, visually estimated ejection fraction 55% with no obvious regional wall motion abnormality. 2. The right atrium and right ventricle are normal size and contractility. 3. The aortic valve is minimally thickened and fibrosed. 4. The mitral and tricuspid valve leaflets are minimally thickened. 5. The pulmonic valve is poorly visualized. 6. No significant pericardial effusion noted. DOPPLER INTERROGATION: Doppler interrogation of the aortic, mitral and tricuspid valvular presence of mild mitral and tricuspid regurgitation, tricuspid and jet velocity is insufficient for calculation of the right ventricular systolic pressure, grade 1 diastolic dysfunction seen without tissue Doppler evidence of raised left atrial pressure. CONCLUSION: 1. Mildly enlarged left atrium, normal left ventricular size, mild concentric left ventricular hypertrophy, visually estimated ejection fraction 55% with no obvious regional wall motion abnormality, grade 1 diastolic dysfunction seen without tissue Doppler evidence of raised left atrial pressure. 2. Mild mitral and tricuspid regurgitation. 3. No significant pericardial effusion noted.
== END 2017-07-17 12:00 | disposition home or self-care (01) ==
LOC: ER 19:22 → 2ND 21:20
PROVIDERS: Emergency Medicine; General Practice
DX: R07.9 Chest pain, unspecified (principal); E11.9 Type 2 diabetes mellitus without complications; Z95.5 Presence of coronary angioplasty implant and graft; I10 Essential (primary) hypertension; I25.10 Atherosclerotic heart disease of native coronary artery without angina pectoris
CPT/HCPCS: G0378

== ENCOUNTER 2017-08-29 23:24 | Emergency (ER) | payer MEDICARE ==
[~2017-08-29] VITALS: Ht 167.6 cm; Wt 163.3 kg
[~2017-08-29 23:24] MED LIST changes: +ALLOPURINOL100 MG PO; +ISOSORBIDE MONO30 MG PO; +METFORMIN 500M500 M1 PO; +METOPROLOL SUCC25 M2 PO; +PLAVIX75 M1 PO; +SERTRALINE 50MG50 MG PO
--- OUTSIDE RECORDS SUMMARY | 2017-08-29 23:43 | External Medical Summary Rpt | CCD ---
Author Author , LYNDA Organization LYNDA Address Unknown Phone [email or web address] Care Team Providers Care Right Of Way Man Name Role Phone [facility], Unavailable Unavailable [facility], [facility]available Unavailable [facility] [place] Unavailable [facility] Unavailable Unavailable [facility], [facility] PH[facility] Unavailable Unavailable [facility]ITA, [facility], Unavailable Unavailable [facility] Unavailable Unavailable CARE, [place], [facility], IN [facility] N[facility]SE Unavailable Unavailable PRACTITIONER GR, [facility] Unavailable [facility], [facility], [facility] Un[facility] Unavailable Unavailable EMERGENCY PHYS, [facility] Unavailable Unavailable EMERGENCY SERV, [facility] EM[facility] SERV [facility] Unavailable [facility]available [facility] Unavailable Unavailable [facility], [facility] Unavailable Unavailable PHYSICIANS, [facility] Unavailable Unavailable [place], [facility], [facility] Unavailable Unavailable [facility] Unavailable [facility], [facility] Purpose Continuity of Care Document - 04-11-2011 through 2016 Problems Code Diagnosis DOS Provider Status E11.9 TYPE 2 08-21-2017 DIABETES MELLITUS WITHOUT COMPLICATIO NS F32.9 MAJOR 08-21-2017 DEPRESSIVE DISORDER, SINGLE EPISODE, UNSPECIFIED I10 ESSENTIAL 08-21-2017 (PRIMARY) HYPERTENSIO N 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 K21.9 GASTRO-ESOP 08-21-2017 HAGEAL REFLUX DISEASE WITHOUT ESOPHAGITIS L02.01 CUTANEOUS 08-21-2017 ABSCESS OF FACE M19.90 UNSPECIFIED 08-21-2017 OSTEOARTHRI TIS, UNSPECIFIED SITE M79.7 FIBROMYALGI 08-21-2017 A Z79.84 PUBLIC HEALTH NUTRITIONIST 08-21-2017 (CURRENT) USE OF ORAL HYPOGLYCEMI C DRUGS Z88.0 ALLERGY 08-21-2017 STATUS TO PENICILLIN Z88.2 ALLERGY 08-21-2017 STATUS TO SULFONAMIDE S STATUS Z88.5 ALLERGY 08-21-2017 STATUS TO NARCOTIC AGENT STATUS Z88.8 ALLERGY 08-21-2017 STATUS TO OTHER DRUGS, MEDICAMENTS AND BIOLOGICAL SUBSTANCES STATUS Z90.49 ACQUIRED 08-21-2017 ABSENCE OF OTHER SPECIFIED PARTS OF DIGESTIVE TRACT Z91.040 LATEX 08-21-2017 ALLERGY STATUS Z91.048 OTHER 08-21-2017 NONMEDICINA L SUBSTANCE ALLERGY STATUS Z95.5 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 Z98.84 BARIATRIC 08-21-2017 SURGERY STATUS R10.12 LEFT UPPER 06-22-2017 [facility] PAIN R10.13 EPIGASTRIC 06-22-2017 PAIN R10.811 RIGHT UPPER 06-22-2017 [facility] ABDOMINAL TENDERNESS R10.812 LEFT UPPER 06-22-2017 [facility] ABDOMINAL TENDERNESS R10.816 EPIGASTRIC 06-22-2017 ABDOMINAL TENDERNESS R11.2 NAUSEA WITH 06-22-2017 VOMITING, UNSPECIFIED R19.7 DIARRHEA, 06-22-2017 UNSPECIFIED G4733 OBSTRUCTIVE 03-01-2016 [facility] SLEEP MEDICAL APNEA ADULT PEDIATRIC D68224 MIGRAINE 02-24-2016 [facility] W/AURA NOT NEUROLOGY INTRACT W/O STAT MIGRAINOSUS M797 FIBROMYALGI 02-24-2016 [facility] [place] D34 BENIGN 12-08-2015 [facility] GLAND E119 TYPE 2 12-08-2015 [facility] DIABETES [facility] MELLITUS [facility] WITHOUT COMPLICATIO NS I10 ESSENTIAL 12-08-2015 [facility] PRIMARY [facility] HYPERTENSIO HOSP N M542 CERVICALGIA 10-30-2015 [facility] HOSPI M546 PAIN IN 10-29-2015 [place] [facility] SPINE C [facility]ENTE M6240 CONTRACTURE 10-29-2015 [place] OF MUSCLE [facility]IROPRA[facility] UNSPECIFIED C CENTE SITE H6122 IMPACTED 10-13-2015 [facility] LEFT EAR HOSPI R42 DIZZINESS 10-13-2015 [facility] GIDDINESS HOSPI R0602 SHORTNESS 10-11-2015 [facility] OF BREATH COMMUNTIY HOSPITA R0789 OTHER CHEST 10-11-2015 [facility] PAIN COMMUNTIY HOSPITA R110 NAUSEA 10-11-2015 [facility] COMMUNTIY HOSPITA R51 HEADACHE 10-11-2015 [facility] COMMUNTIY HOSPITA Z8614 PERSONAL HX 10-11-2015 [facility] COMMUNTIY [facility] HOSPITA RSIST STAPH INFECTION Z9884 BARIATRIC 10-11-2015 [facility] SURGERY COMMUNTIY STATUS HOSPITA M109 GOUT 09-11-2015 [place] UNSPECIFIED FOOT & ANKLE CE M1990 UNSPECIFIED 09-11-2015 [place] FOOT & OSTEOARTHRI ANKLE CE TIS UNSPECIFIED SITE C37362 SPONTANEOUS 09-11-2015 [place] RUPTURE FOOT & FLEXOR ANKLE CE TENDONS UNS LOWER LEG M7660 ACHILLES 09-11-2015 [place] TENDINITIS FOOT & UNSPECIFIED ANKLE CE LEG A630 ANOGENITAL 09-02-2015 [facility] [email or web address] [facility] [id number] UNSPECIFIED 08-26-2015 [facility] INJURY COMMUNTIY LEFT ANKLE HOSPITA INITIAL ENCOUNTER Z23 ENCOUNTER 08-18-2015 . FOR MEL[facility]IE IMMUNIZATIO SELINA N N843 POLYP OF 08-14-2015 [facility] Z63971 PAIN IN 08-07-2015 [facility] [place] LEFT [facility]KLE [facility]IOLOG[facility] L16728 PAIN IN 08-07-2015 [facility] LEFT LEG N EMERGENCY PHYS X90475 PAIN IN 08-07-2015 [facility] [place] LEFT FOOT [facility] V15551 OTHER LONG 07-28-2015 [facility] CURRENT [facility] DRUG THERAPY E6601 MORBID 07-22-2015 SE[facility]ERE [facility] OBESITY DUE PHYSICIANS TO EXCESS CALORIES Z6843 BODY MASS 07-22-2015 INDEX BMI MELONIE 50-59.9 PHYSICIANS ADULT E109 TYPE 1 07-15-2015 ST. DIABETES MELONIE MELLITUS SELINA WITHOUT COMPLICATIO NS L500 ALLERGIC 07-15-2015 ST. URTICARIA MEL[facility]IE MARKS A95943 ENCOUNTER 07-15-2015 ST. FOR OTHER MEL[facility]IE PREPROCEDUR SELINA AL EXAMINATION 83099 MIGRAINE 06-26-2015 [facility]OS[facility] W/AURA W/O NEUROLOGY INTRACT W/O STATUS MIGRNOSUS 7291 UNSPECIFIED 06-26-2015 [facility] MYALGIA NEUROLOGY AND MYOSITIS 82576 DIAB W/O 06-25-2015 [facility] COMP TYPE [facility] II/UNS NOT HOSP STATED UNCNTRL 6825 CELLULITIS 06-02-2015 [facility] NURSE AND ABSCESS PRACTITIONE OF BUTTOCK R GR 2189 LEIOMYOMA 05-25-2015 [facility] UTERUS, SERV UNSPECIFIED FOUNDATION 56133 MORBID 05-25-2015 [facility] OBESITY COMMUNTIY HOSPITA 4019 UNSPECIFIED 05-25-2015 [facility] ESSENTIAL COMMUNTIY HYPERTENSIO HOSPITA N 05259 ASTHMA, 05-25-2015 [facility] UNSPECIFIED COMMUNTIY , HOSPITA UNSPECIFIED STATUS 11102 ENDOMETRIAL 05-25-2015 [facility] HYPERPLASIA FOUNDATION UNSPECIFIED 6253 DYSMENORRHE 05-25-2015 [facility] 6262 EXCESSIVE 05-25-2015 [facility] FREQUENT SERV [facility]OUNDATION MENSTRUATIO N 6271 POSTMENOPAU 05-25-2015 [facility] CRISTIN COMMUNTIY BLEEDING HOSPITA V8544 BODY MASS 05-25-2015 [facility] INDEX COMMUNTIY 60.0-69.9 HOSPITA ADULT V7283 OTHER 05-19-2015 [facility] SPECIFIED COMMUNTIY PRE-OPERATI HOSPITA VE EXAMINATION 35208 FEVER 05-18-2015 [facility] UNSPECIFIED N EMERGENCY SERV 3393 DRUG 03-20-2015 [facility]OS[facility] INDUCED NEUROLOGY HEADACHE NOT ELSEWHERE CLASSIFIED 0794 HUMAN 03-17-2015 [facility] VIRUS IN CCE & UNS SITE 4660 ACUTE 09-04-2012 [facility] [place] 6828 CELLULITIS 07-15-2012 EMERGENCY AND ABSCESS CARE PHYS OF OTHER NORTHERN SPECIFIED SITE 6823 CELLULITIS 05-22-2012 EMERGENCY AND ABSCESS CARE PHYS OF UPPER NORTHERN ARM AND FOREARM 6826 CELLULITIS 05-02-2012 ST AND ABSCESS MELONIE OF LEG FT [place]US EXCEPT FOOT 99783 UNSPECIFIED 05-02-2012 ST SLEEP MELONIE APNEA FT [...] ST OF V[facility]VA MELONIE AND VAGINA FT LEUXS 23109 UNSPECIFIED 04-16-2012 ST VAGINITIS MELONIE AND FT LEXUS VULVOVAGINI TIS 39294 UNSPECIFIED 03-23-2012 ST MELONIE PYELONEPHRI FT LEXUS TIS 10937 ABDOMINAL 03-23-2012 ST PAIN RIGHT MELONIE UPPER [...] OF [place] [address] ABDOMINAL 09-16-2011 ST TENDERNESS MELONIE RIGHT UPPER FT LEXUS QUADRANT 74881 ABDOMINAL 09-16-2011 ST TENDERNESS MELONIE RIGHT LOWER FT LEXUS QUADRANT 9150 ABRASION/FR 09-16-2011 ST ICTION BURN MELONIE FINGER W/O FT LEXUS MENTION INF 9222 CONTUSION 09-16-2011 ST OF MELONIE ABDOMINAL FT [place]EXUS WALL 28966 CONTUSION 09-16-2011 ST OF HAND MELONIE FT LEXUS 34108 UNSPECIFIED 04-27-2011 EMERGENCY SITE OF CARE PHYS ANKLE NORTHERN SPRAIN AND STRAIN 20069 CONTUSION 04-27-2011 EMERGENCY OF ANKLE CARE PHYS NORTHERN V1588 PERSONAL 04-27-2011 EMERGENCY HISTORY OF CARE PHYS FALL [place]THER[place] 31233 ABDOMINAL 04-11-2011 EMERGENCY PAIN, CARE PHYS UNSPECIFIED NORTHERN SITE E86.0 Dehydration H92.01 Otalgia, right ear K29.00 Acute gastritis without bleeding L03.211 Cellulitis of face L81.8 Other specified disorders of pigmentatio n M79.671 Pain in right foot N28.9 DISORDER OF KIDNEY AND URETER, UNSPECIFIED R07.9 CHEST PAIN, UNSPECIFIED R11.0 Nausea R63.5 Abnormal weight gain S00.03XA CONTUSION OF SCALP, INITIAL ENCOUNTER S01.01XA LACERATION WITHOUT FOREIGN BODY OF SCALP, INITIAL ENCOUNTER S16.1XXA STRAIN OF MUSCLE, FASCIA AND TENDON AT NECK LEVEL, INIT Allergies, Adverse Reactions, Alerts Clinical Alert Notifications Alert Diabetes: no eye exam in the last 365 days Diabetes: no lipid panel in the last 365 days Diabetes: no urine protein screening in the last 365 days Results Labs Lab Lab Date Result Refere Interp Status Commen Order Detail nces retati t Range on Glucose capillary blood glucometer (07-17-2017 05:55) Glucose 07-17-2 = 118 70-110 complet 017 mg/dl ed capilla 05:[address] Glucose capillary blood glucometer (07-16-2017 20:59) Glucose 10--2 = 171 70-110 complet 017 mg/dl ed capilla 20:[address] Glucose capillary blood glucometer (07-16-2017 16:44) Glucose 10--2 = 172 70-110 complet 017 mg/dl ed capilla 16:[address] Glucose capillary blood glucometer (07-16-2017 11:24) Glucose 10--2 = 174 70-110 complet 017 mg/dl ed capilla 11:[address] Glucose capillary blood glucometer (07-16-2017 06:22) Glucose 10--2 = 154 70-110 complet 017 mg/dl ed capilla 06:[address] Basic metabolic panel (07-16-2017 05:30) Serum 10-15-2 = 20 7-18 complet or 017 mg/dL ed plasma 05:30 urea nitroge n measure men Serum 07-16-2 = 9.1 8.5-10. complet or 017 mg/dL 1 ed plasma 05:30 calcium measure ment (mas Serum 10-2 = 103 98-107 complet or 017 mmoL/L ed plasma 05:30 chlorid e measure ment (mo Carbon 07-16-2 = 31 21.0-32 complet dioxide 017 mmoL/L .0 ed 05:30 measure ment Serum 07-16-2 = 1.0 0.55-1. complet or 017 mg/dL 02 ed plasma 05:30 creatin ine measure ment ( Estimat = 134 50-200 complet ion of 017 ML/MIN ed creatin 05:30 ine renal clearan ce Estimat = 58 59- complet ed 017 ML/MIN ed glomeru 05:30 lar filtrat ion rate (GF Serum = 161 74-106 complet or 017 mg/dL ed plasma 05:30 glucose measure ment (mas Serum = 4.8 3.5-5.1 complet potassi 017 mmoL/L ed um 05:30 measure ment Serum = 140 136-145 complet sodium 017 mmoL/L ed measure 05:30 ment Cardiac enzymes (07-16-2017 05:30) Serum = 2.0 0-4.0 complet or 017 U/L ed plasma 05:30 creatin e kinase MB (CK-M Serum < 0.5 0.0-3.6 complet or 017 ng/mL ed plasma 05:30 creatin e kinase MB measu Serum = 25 26-192 complet or 017 U/L ed plasma 05:30 creatin e kinase measure m Serum < 0.02 0.00-0. complet or 017 ng/mL 06 ed plasma 05:30 troponi n i.cardi ac measu CBC w auto diff (07-16-2017 05:30) Baso % = 0.5 % 0.1-2.0 complet 017 ed 05:30 Automat = 0.1 0.0-0.4 complet ed 017 K/mm3 ed blood 05:30 eosinop hil count Automat = 1.4 % 0.1-12. complet ed 017 0 ed blood 05:30 eosinop hils/10 0 leukocy t Blood = 3.1 1.8-7.8 complet granulo 017 K/mm3 ed cytes 05:30 automat ed count (numb Granulo = 35.4 37.0-80 complet cyte 017 % .0 ed percent 05:30 age Blood = 37.4 37.0-47 complet hematoc 017 % .0 ed rit 05:30 (volume fractio n) Blood = 12.0 12.2-16 complet hemoglo 017 g/dL .2 ed bin 05:30 measure ment (mass/v olum Blood = 8.8 4.8-10. complet leukocy 017 K/MM3 8 ed pily 05:30 count (number /volume ) Automat = 12.9 11.5-17 complet ed 017 % .5 ed erythro 05:30 cyte distrib ution width Red = 4.13 4.2-5.4 complet blood 017 M/mm3 ed cell 05:30 count Blood = 226 142-424 complet platele 017 K/mm3 ed t count 05:30 Automat = 7.9 7.4-10. complet ed 017 fl 4 ed blood 05:30 platele t mean volume christine [place] % = 5.0 % 1.7-9.3 complet 017 ed 05:30 Absolut = 0.4 0.1-1.0 complet e 017 K/mm3 ed monocyt 05:30 e count Automat = 90.5 82.2-97 complet ed 017 fl .8 ed erythro 05:30 cyte mean corpusc ular v Automat = 32.1 31.8-35 complet ed 017 g/dl .4 ed erythro 05:30 cyte mean corpusc ular h Mean = 29.1 27-31.2 complet corpusc 017 pg ed ular 05:30 hemoglo bin (MCH) determ Lymphoc = 57.7 10-50.0 complet yte 017 % ed count, 05:30 blood, automat ed Absolut = 5.1 0.7-4.5 complet e 017 K/mm3 ed lymphoc 05:30 yte count Automat = 0.1 0-0.2 complet ed 017 K/MM3 ed blood 05:30 basophi l count (count/ vo Differential panel, method unspecified - (07-16-2017 05:30) Blood = 100 complet total 017 #CELLS ed cell 05:30 count Neutrop = 46 % 42-76 complet hil 017 ed count 05:30 Blood 07-16- SL. SL. complet poikilo 017 L ed cytosis 05:30 detecti on by light Platele NORMAL complet t 017 NORMAL ed estimat 05:30 L e Monocyt = 2 % 2-9 complet e % 017 ed 05:30 LYMPH 48 % 10-50 complet 017 ed 05:30 Hypochr 1+ 1+ L complet omatic 017 ed red 05:30 blood cell detecti on Manual = 1 % 0-3 complet blood 017 ed eosinop 05:30 hils/10 0 leukocy pily Automat = 3 % 0-8 complet ed 017 ed blood 05:30 band neutrop hil percent a Cardiac enzymes (07-16-2017 02:05) Serum = 1.8 0-4.0 complet or 017 U/L ed plasma 02:05 creatin e kinase MB (CK-M Serum < 0.5 0.0-3.6 complet or 017 ng/mL ed plasma 02:05 creatin e kinase MB measu Serum = 28 26-192 complet or 017 U/L ed plasma 02:05 creatin e kinase measure m Serum < 0.02 0.00-0. complet or 017 ng/mL 06 ed plasma 02:05 troponi n i.cardi ac measu CBC w auto diff (07-15-2017 19:33) Red [...] bin 19:33 measure ment (mass/v olum Absolut = 4.5 0.7-4.5 complet e 017 K/mm3 [...] 017 K/mm3 ed monocyt 19:33 e count Victoria % = 4.4 % 1.7-9.3 complet 017 [...] 017 gm/dL ed ser/rissa 19:33 s Urate SerPl-mCnc (06-30-2017 14:55) Urate 7.1 3.1-7.1 complet SerPl-m 017 mg/dL ed Cnc 14:55 Hgb A1c MFr Bld (06-30-2017 14:55) Hgb A1c 8.0 % 4.7-6.0 complet MFr 017 ed Bld 14:55 Encounters Encounter Start End Date Code Location Performer Type Date [facility] [address] [place] [address] [address] [facility] [place] [address] [address] [facility] [place] [address] [address] [facility] [place] [address] [address] [facility] [place] [address] [address] [facility] [place] [address] [address] [facility] [place] [address] [address] [facility] [place] [address] [address] [facility] [place] [address] [address] [facility] [place] [address] [address] [facility] [place] [address] [address] [facility] [address] - [address] [facility] - [address] [facility] [address] - [address] [facility] [address] - [address] [facility] [address] - [address] [facility] [address] - 1 1 [facility]
--- OUTSIDE RECORDS SUMMARY | 2017-08-29 23:43 | External Medical Summary Rpt | CCD ---
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, [place] [facility] NURSE Unavailable Unavailable PRACTITIONER GR, K[facility] NURSE PRACTITIONER [facility] Un[facility] Unavailable [facility], [facility] Unavailable [facility]available [facility] Unavailable Unavailable [facility], [facility] Unavailable Unavailable [facility], [facility] Unavailable Unavailable [facility] Unavailable Unavailable [place], [facility] Unavailable Unavailable PHYSICIANS, [facility] Unavailable Unavailable [place], [facility], [facility] Unavailable Unavailable [facility] Unavailable [facility], [facility] Purpose Continuity of Care Document - 04-11-2011 through 2016 Problems Code Diagnosis DOS Provider Status E11.9 TYPE 2 08-21-2017 DIABETES MELLITUS WITHOUT COMPLICATIO NS F32.9 MAJOR 08-21-2017 DEPRESSIVE DISORDER, SINGLE EPISODE, UNSPECIFIED I10 ESSENTIAL 08-21-2017 (PRIMARY) HYPERTENSIO N 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 K21.9 GASTRO-ESOP 08-21-2017 HAGEAL REFLUX DISEASE WITHOUT ESOPHAGITIS L02.01 CUTANEOUS 08-21-2017 ABSCESS OF FACE M19.90 UNSPECIFIED 08-21-2017 OSTEOARTHRI TIS, UNSPECIFIED SITE M79.7 FIBROMYALGI 08-21-2017 A Z79.84 TRAVEL PT 08-21-2017 (CURRENT) USE OF ORAL HYPOGLYCEMI C [...] R19.7 DIARRHEA, 06-22-2017 UNSPECIFIED G4733 OBSTRUCTIVE 03-01-2016 [facility] SLEEP MEDICAL APNEA ADULT PEDIATRIC [id number] MIGRAINE 02-24-2016 [facility] W/AURA NOT NEUROLOGY INTRACT W/O STAT MIGRAINOSUS M797 FIBROMYALGI 02-24-2016 [facility] [place] [facility] D34 BENIGN 12-08-2015 [facility] NEOPLASM [facility] THYROID HOS[facility] GLAND E119 TYPE 2 12-08-2015 [facility] DIABETES [facility] MELLITUS HOSP WITHOUT COMPLICATIO NS I10 ESSENTIAL 12-08-2015 [facility] HYPERTENSIO HOSP N M542 CERVICALGIA 10-30-2015 [facility] HOSPI M546 PAIN IN 10-29-2015 [place] [facility] SPINE C CENTE M6240 CONTRACTURE 10-29-2015 [place] OF MUSCLE CHIROPRACTI UNSPECIFIED C CENTE SITE H6122 IMPACTED 10-13-2015 [facility] LEFT EAR HOSPI R42 DIZZINESS 10-13-2015 [facility] GIDDINESS HOSPI R0602 SHORTNESS 10-11-2015 [facility] OF [facility] HOSPITA R0789 OTHER CHEST 10-11-2015 [facility] PAIN [facility]TI[facility]PITA R110 NAUSEA 10-11-2015 [facility] R51 HEADACHE 10-11-2015 [facility] Z8614 PERSONAL HX 10-11-2015 [facility] RSIST STAPH INFECTION Z9884 BARIATRIC 10-11-2015 [facility] SURGERY COMM[facility]TI[facility] STATUS HOSPITA M109 GOUT 09-11-2015 [place] UNSPECIFIED FOOT & ANKLE CE M1990 UNSPECIFIED 09-11-2015 [place] FOOT & OSTEOARTHRI ANKLE CE TIS UNSPECIFIED SITE C16287 SPONTANEOUS 09-11-2015 [place] RUPTURE FOOT & FLEXOR ANKLE CE TENDONS UNS LOWER LEG M7660 ACHILLES 09-11-2015 [place] TENDINITIS FOOT & UNSPECIFIED ANKLE CE LEG A630 ANOGENITAL 09-02-2015 [facility] Marfeel [facility] [id number] UNSPECIFIED 08-26-2015 [facility] INJURY COMMUNTIY LEFT ANKLE HOSPITA INITIAL ENCOUNTER Z23 ENCOUNTER 08-18-2015 . FOR MELONIE IMMUNIZATIO SELINA N N843 POLYP OF 08-14-2015 [facility] G26080 PAIN IN 08-07-2015 [facility] [place] LEFT [facility] RADIOLOGY E50781 PAIN IN 08-07-2015 [facility] LEFT LEG N EMERGENCY PHYS L26081 PAIN IN 08-07-2015 [facility] [place] LEFT FOOT RADIOLOGY E62114 OTHER LONG 07-28-2015 [facility] SERV CURRENT [facility] DRUG THERAPY E6601 MORBID 07-22-2015 SE[facility] M[facility]ONIE OBESITY DUE PHYSICIANS TO EXCESS CALORIES Z6843 BODY MASS 07-22-2015 INDEX BMI MELONIE 50-59.9 PHYSICIANS ADULT E109 TYPE 1 07-15-2015 ST. DIABETES MELONIE MELLITUS SELINA WITHOUT COMPLICATIO NS L500 ALLERGIC 07-15-2015 ST. URTICARIA MELONIE MARKS J71814 ENCOUNTER 07-15-2015 ST. FOR OTHER MELONIE PREPROCEDUR SELINA AL EXAMINATION 37185 MIGRAINE 06-26-2015 [facility] W/AURA W/O NEUROLOGY INTRACT W/O STATUS MIGRNOSUS 7291 UNSPECIFIED 06-26-2015 [facility] MYALGIA NEUROLOGY AND MYOSITIS 94556 DIAB W/O 06-25-2015 [facility] COMP TYPE [facility] II/UNS NOT HOSP STATED UNCNTRL 6825 CELLULITIS 06-02-2015 [facility] NURSE AND ABSCESS PRACTITIONE OF BUTTOCK R GR 2189 LEIOMYOMA 05-25-2015 [facility] UTERUS, SERV UNSPECIFIED FOUNDATION 82293 MORBID 05-25-2015 [facility] OBESITY COMMUNTIY HOSPITA 4019 UNSPECIFIED 05-25-2015 [facility] ESSENTIAL COMMUNTIY HYPERTENSIO HOSPITA N 74017 ASTHMA, 05-25-2015 [facility] UNSPECIFIED COMMUNTIY , HOSPITA UNSPECIFIED STATUS 66277 ENDOMETRIAL 05-25-2015 [facility] HYPERPLASIA FOUNDATION UNSPECIFIED 6253 DYSMENORRHE 05-25-2015 [facility] 6262 EXCESSIVE 05-25-2015 [facility] FREQUENT SERV FOUNDATION MENSTRUATIO N 6271 POSTMENOPAU 05-25-2015 [facility] CRISTIN COMMUNTIY BLEEDING HOSPITA V8544 BODY MASS 05-25-2015 [facility] INDEX COMMUNTIY 60.0-69.9 HOSPITA ADULT V7283 OTHER 05-19-2015 [facility] SPECIFIED COMMUNTIY PRE-OPERATI HOSPITA VE EXAMINATION 28937 FEVER 05-18-2015 [facility] UNSPECIFIED N EMERGENCY SERV 3393 DRUG 03-20-2015 [facility] INDUCED NEUROLOGY HEADACHE NOT ELSEWHERE CLASSIFIED 0794 HUMAN 03-17-2015 [facility] VIRUS IN CCE & UNS SITE 4660 ACUTE 09-04-2012 [facility]ALTH BRONCHITIS [facility] [place] 6828 CELLULITIS 07-15-2012 EMERGENCY AND ABSCESS CARE PHYS OF OTHER NORTHERN SPECIFIED SITE 6823 CELLULITIS 05-22-2012 EMERGENCY AND ABSCESS CARE PHYS OF UPPER NORTHERN ARM AND FOREARM 6826 CELLULITIS 05-02-2012 ST AND ABSCESS MELONIE OF LEG FT LEX[place] EXCEPT FOOT 28694 UNSPECIFIED 05-02-2012 ST SLEEP MELONIE APNEA FT [...] OF VULVA MELONIE AND VAGINA FT LEXUS 01434 UNSPECIFIED 04-16-2012 ST VAGINITIS MELONIE AND FT LEXUS VULVOVAGINI TIS 07139 UNSPECIFIED 03-23-2012 ST MELONIE PYELONEPHRI FT LEXUS TIS 12964 ABDOMINAL 03-23-2012 ST PAIN RIGHT MELONIE UPPER [...] OF [place]EL[place] [address] ABDOMINAL 09-16-2011 ST TENDERNESS MELONIE RIGHT UPPER FT LEXUS QUADRANT 77640 ABDOMINAL 09-16-2011 ST TENDERNESS MELONIE RIGHT LOWER FT LEXUS QUADRANT 9150 ABRASION/FR 09-16-2011 ST ICTION BURN MELONIE FINGER W/O FT [place]EX[place] MENTION INF 9222 CONTUSION 09-16-2011 ST OF MELONIE ABDOMINAL FT [place]EX[place] WALL 47649 CONTUSION 09-16-2011 ST OF HAND MELONIE FT LEXUS 75272 UNSPECIFIED 04-27-2011 EMERGENCY SITE OF CARE PHYS ANKLE NORTHERN SPRAIN AND STRAIN 24663 CONTUSION 04-27-2011 EMERGENCY OF ANKLE CARE PHYS NORTHERN V1588 PERSONAL 04-27-2011 EMERGENCY HISTORY OF CARE PHYS FALL NORTHERN 32526 ABDOMINAL 04-11-2011 EMERGENCY PAIN, CARE PHYS UNSPECIFIED [...] blood 05:30 platele t mean volume christine [place] % = 5.0 % 1.7-9.3 complet 017 [...] 017 K/mm3 ed monocyt 19:33 e count [place] % = 4.4 % 1.7-9.3 complet 017 [...] End Date Code Location Performer Type Date [facility] [address] [place] [address] [address] [facility] [place] [address] [address] [facility] [place] [address] [address] [facility] [place] [address] [address] [facility] [place] [address] [address] [facility] [place] [address] [facility] [place] [address] [address] [facility] [place] [address] [address] [facility] [place] [address] [address] [facility] [place] [address] 5 [facility] [place] [address] [address] [facility] [address] - 2 2 [facility] - 2 2 [facility] - 2 2 [facility] [address] - 2 2 [facility] [address] - [address] [facility] [address] - 1 1 [facility]
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
--- OUTSIDE RECORDS SUMMARY | 2017-08-29 23:45 | External Medical Summary Rpt | CCD ---
Author Author , LYNDA Organization [facility] Address Unknown Phone [email or web address] Immunization Name Date Rout CVX Reac Dose [...]
--- OUTSIDE RECORDS SUMMARY | 2017-08-29 23:45 | External Medical Summary Rpt | CCD ---
Author Author , LYNDA Organization [facility] Address Unknown Phone [email or web address] Immunization Name Date Rout CVX Reac Dose [...]
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
[2017-08-30 00:19] VITALS: BP 106/70
== END 2017-08-30 00:19 | disposition home or self-care (01) ==
LOC: ER 23:24
DX: T21.21XA Burn of second degree of chest wall, initial encounter (principal); T79.9XXA Unspecified early complication of trauma, initial encounter; X12.XXXA Contact with other hot fluids, initial encounter; Y92.019 Unspecified place in single-family (private) house as the place of occurrence of the external cause; I10 Essential (primary) hypertension; I25.10 Atherosclerotic heart disease of native coronary artery without angina pectoris; E78.5 Hyperlipidemia, unspecified; Z91.040 Latex allergy status; Z88.0 Allergy status to penicillin